=== PATIENT | male | born 1935 | race Caucasian/White ===

== ENCOUNTER 2016-07-07 19:17 | Inpatient (IN) | payer OTHER ==
[2016-07-07 19:25] VITALS: BMI 29.0
--- NOTE | 2016-07-07 19:40 | PDOC ---
History of Present Illness - General Chief Complaint: Chest Pain Stated Complaint: LEFT LEG SWELLING AN DPAIN Time Seen by Provider: 07/07/16 19:29 - History of Present Illness Initial Comments: This 81-year-old man with a history of hypertension,Type2 DM, GERD, hyperlipidemia, CABG(2003), gout and rheumatoid arthritis presents with 4 day history of pain and swelling in his left leg. Patient denies trauma to the area. Swelling has persisted despite elevation of the leg. He also has a specific area of pain/tenderness of the medial proximal portion of the lower leg. No recent surgery/immobility/malignancy. Patient had total left knee replacement in December,. Patient also relates that for the last few months he has had episodes of "skipped heartbeats" that he senses only at night. He also has had shortness of breath occurring after lying down at night and after climbing stairs during this time (patient approximates 10 steps until he feels short of breath). He denies chest pain at rest or with exertion He denies fever/chills/cough. According to family members, patient began to have more symptoms after change in medication(family believes torsemide was decreased to 10mg every other day) approximately 2 weeks ago when patient had appointment with Dr. Coelho The patient had of CT scan of the chest without intravenous contrast performed , ordered by Dr. Coelho to evaluate for pulmonary hypertension. Study showed borderline prominent main pulmonary trunk with minimal increase in size since previous chest CT compatible with clinical history of pulmonary hypertension YADDrYrn Kaminski CardiologistDr. Coelho Past History - Past Medical History Allergies/Adverse Reactions: Allergies Allergy/AdvReac Type Severity Reaction Status Date / Time No Known Drug Allergies Allergy Verified 07/07/16 19:19 Home Medications: Ambulatory Orders Methotrexate Sodium [Methotrexate] 0 mg PO ASDIR tablet 06/27/14 Carvedilol 0 mg PO DAILY 07/07/16 Furosemide [Lasix] 40 mg PO DAILY 07/07/16 Glipizide 5 mg PO DAILY 07/07/16 Torsemide [Demadex] 10 mg PO Q2D 07/07/16 Anemia: No Asthma: No Cancer: No Cardiac Disorders: Yes (s/p cabg 2003) CVA: No COPD: No CHF: No Dementia: No Diabetes: Yes GI Disorders: No Disorders: No HTN: Yes Hypercholesterolemia: No Kidney Stones: Yes Liver Disease: No Suicide Attempt (Hx): No Seizures: No Thyroid Disease: No - Surgical History Abdominal Surgery: No Appendectomy: No Cardiac Surgery: Yes (CABG X 3-LAST STRESS TEST 1 MONTH AGO) Cholecystectomy: No Lung Surgery: No Neurologic Surgery: No Orthopedic Surgery: Yes (RIGHT KNEE REPLACEMENT 2011) - Psycho/Social/Smoking Cessation Hx Anxiety: No Suicidal Ideation: No Smoking Status: No Smoking History: Never smoked Have you smoked in the past 12 months: No Number of Cigarettes Smoked Daily: 0 Information on smoking cessation initiated: No Hx Alcohol Use: No Drug/Substance Use Hx: No Substance Use Type: None Hx Substance Use Treatment: No Cardiac Specific PMH - Complaint Specific PMHX Pacemaker: No Review of Systems - Review of Systems Able to Perform ROS?: Yes Comments:: 12 point review of systems is negative except for what is noted in the history of present illness *Physical Exam - Vital Signs Last Vital Signs Temp Pulse Resp BP Pulse Ox 97.9 F 70 22 151/71 98 07/07/16 19:18 07/08/16 06:22 07/08/16 06:22 07/08/16 06:22 07/08/16 06:22 - Physical Exam Comments: Elderly male, alert and oriented 3, in no acute distress Vital signs as noted. HEAD: Normal with no signs of trauma. EYES: Pupils equal, round and reactive to light, extraocular movements intact, sclera anicteric, conjunctiva clear with no pallor. ENT: moist mucous membranes. Ears normal, nares patent, oropharynx clear without exudates. NECK: Normal range of motion, supple without lymphadenopathy, JVD, or masses. LUNGS: Breath sounds equal, expiratory crackles bilaterally at the bases. HEART: Regular rate and rhythm, normal S1 and S2 without murmur or rub. ABDOMEN: Soft/nontender/nondistended. BS wnl. No guarding or rebound. No palpable masses. No hepatosplenomegaly. EXTREMITIES: Left lower extremity2+ pitting edema to the knee, nonblanching erythema 3 cm x 4 cm mid anterior tibial surface (old) 2 cm x 3 cm area of tenderness medial aspect of the proximal lower leg, no increased warmth to touch No palpable cords Right lower extremity1+ pitting edema of the ankle; no tenderness, erythema or increased warmth to touch NEUROLOGICAL: Cranial nerves II through XII grossly intact. Moving all 4 extremities equally, Normal speech, normal gait. PSYCH: Normal mood, normal affect. SKIN: Warm, Dry, normal turgor 12-lead electrocardiogram performed which shows normal sinus rhythm at 67 bpm; increasing NC interval with dropped complexes consistent with second-degree A-V block , Mobitz 1; otherwise, unchanged from tracing dated 01/31/15 Portable chest x-ray shows prominent vascular markings bilaterally; elevated right hemidiaphragm and platelike atelectasis is unchanged from previous chest x -ray images ED Treatment Course - LABORATORY CBC & Chemistry Diagram: 07/07/16 19:55 07/07/16 19:55 - ADDITIONAL ORDERS Additional order review: Laboratory Results 07/07/16 07/07/16 07/07/16 22:20 19:55 19:55 INR 1.10 Sodium Potassium Chloride Carbon Dioxide Anion Gap BUN Creatinine Creat Clearance w eGFR Random Glucose Calcium Total Bilirubin AST ALT Alkaline Phosphatase Creatine Kinase 70 Troponin I < 0.03 L Total Protein Albumin Urine Color Yellow Urine Appearance Clear Urine pH 5.5 Ur Specific [place] 1.010 Urine Protein 2+ H Urine Glucose (UA) Negative Urine Ketones Negative Urine Blood Trace-intact Urine Nitrite Negative Urine Bilirubin Negative Urine Urobilinogen 0.2 e.u/dl Ur Leukocyte Esterase Negative Urine RBC 0-2 Urine WBC 0-1 Ur Epithelial Cells 1-2 07/07/16 19:55 INR Sodium 140 Potassium 4.2 Chloride 114 H Carbon Dioxide 22 Anion Gap 4 L BUN 29 H D Creatinine 1.3 D Creat Clearance w eGFR 52.85 Random Glucose 173 H D Calcium 8.9 Total Bilirubin 0.1 L D AST 18 D ALT 15 D Alkaline Phosphatase 35 Creatine Kinase Troponin I Total Protein 6.5 Albumin 3.8 Urine Color Urine Appearance Urine pH Ur Specific [place] Urine Protein Urine Glucose (UA) Urine Ketones Urine Blood Urine Nitrite Urine Bilirubin Urine Urobilinogen Ur Leukocyte Esterase Urine RBC Urine WBC Ur Epithelial Cells 07/07/16 19:55 RBC 3.54 L MCV 95.9 MCHC 33.1 RDW 16.0 H MPV 8.7 Neutrophils % 74.2 Lymphocytes % 16.7 D Monocytes % 5.1 Eosinophils % 3.4 Basophils % 0.6 - RADIOLOGY Radiology Studies Ordered: Category Date Time Status CHEST X-RAY PORTABLE* [RAD] Stat Radiology 07/07/16 20:50 Taken DUPLEX VASCUL US-1 LEG [US] Stat Ultrasound 07/07/16 20:00 Completed - Medications Given in the ED: ED Medications Discontinued Medications Generic Name Dose Route Start Last Admin Trade Name Reginaldo PRN Reason Stop Dose Admin Furosemide 40 mg 07/07/16 23:02 07/07/16 23:21 Lasix Injection - IVPUSH 07/07/16 23:03 40 mg ONCE ONE Administration Medical Decision Making - Medical Decision Making 07/07/16 22:17 Doppler evaluation of left leg shows no evidence of DVT. There is a thrombosed superficial varicosities in the popliteal region. There is also complex fluid collection in the medial aspect of the proximal calf most consistent with a hematoma. Patient given 40 mg of furosemide IV Patient to be admitted by the hospitalist service for Dr. Kaminski for evaluation and treatment of his progressive dyspnea and new onset second-degree AV block. Patient seen by LIZETH Oglesby and admitting orders written. Patient boarding in ER overnight because of unavailability of open beds on floor. 07/08/16 02:50 Patient complaining of right posterior thigh muscle cramp. On exam, patient has muscle spasm in the hamstring muscle right side. Local warmth(warm towel) placed to the area with some relief Patient also asked for medication so that he could sleep. He has taken diphenhydramine in the past for insomnia. Patient given 25 mg diphenhydramine by mouth Second troponin not elevated 07/08/16 06:45 Patient had an asymptomatic episode of bradycardia to mid 30s (rhythm strip showed second-degree AV block, type I as previously) 07/08/16 07:19 Case signed out to incoming ED physician at end of shift *DC/Admit/Observation/Transfer Diagnosis at time of Disposition: AV block, Mobitz 1, Pulmonary hypertension - Discharge Dispostion Condition at time of disposition: Stable Admit: Yes Decision to Admit order Date/Time: Decision to Admit Order Category Date Time Status Decision to Admit to Hospital Routine Admission 07/07/16 22:47 Active - Referrals
[2016-07-07 20:12] LABS: INR 1.1 (0.82-1.09); PROTHROMBIN TIME (PATIENT) 12.3 SEC (10.2-13.0)
[2016-07-07 20:17] LABS: BASOPHIL 0.6 % (0-2.0); CPK(DFH) 70 IU/L (38-174); EOSINOPHIL 3.4 % (0-4.5); MCH 31.7 pg (25.7-33.7); MCHC 33.1 g/dl (32.0-35.9); MEAN CELL VOLUME 95.9 fl (80-96); MEAN PLT VOLUME 8.7 fl (7.5-11.1); NEUTROPHILS 74.2 % (42.8-82.8); PLATELET COUNT 128 K/MM3 (134-434); WHITE BLOOD COUNT 6.3 K/mm3 (4.0-10.8)
[2016-07-07 20:18] LABS: ALBUMIN 3.8 g/dl (3.5-5.0); ALK PHOS 35 U/L (32-92); ANION GAP 4 (8-16); BILIRUBIN,TOTAL 0.1 mg/dl (0.2-1.0); CALCIUM 8.9 mg/dl (8.4-10.2); CO2 22 mmol/L (22-28); CREATININE 1.3 mg/dl (0.6-1.3); GLUCOSE,RANDOM 173 mg/dl (74-106); SGOT/AST 18 U/L (10-42); SGPT/ALT 15 U/L (10-40); TOT PROT 6.5 g/dl (6.4-8.3)
[2016-07-07 20:42] LABS: TROPONIN I (DFP) < 0.03 ng/ml (0.03-0.50)
[2016-07-07 22:42] LABS: PH,URINE 5.5 (4.5-8); URINE APPEARANCE Clear; URINE BILIRUBIN Negative (NEGATIVE); URINE BLOOD Trace-intact (NEGATIVE); URINE COLOR YELLOW; URINE GLUCOSE (UA) Negative (NEGATIVE); URINE KETONE Negative (NEGATIVE); URINE LEUK ESTERASE Negative (NEGATIVE); URINE NITRITE Negative (NEGATIVE); URINE PROTEIN 2+ (NEGATIVE); URINE UROBILINOGEN 0.2 E.U/dl (0.2-1.0)
[2016-07-07] MEDS ORDERED: FUROSEMIDE 40 MG/4 ML INJECTABLE VIAL IVPUSH ONE (23:02)
[2016-07-07 23:06] LABS: URINE RBC 0-2 /hpf (0-3); URINE WBC 0-1 (3-5)
[2016-07-07] MEDS ORDERED: FUROSEMIDE 40 MG/4 ML INJECTABLE VIAL ONE (23:14)
--- NOTE | 2016-07-07 23:57 | HP ---
CHIEF COMPLAINT: swelling and pain to left leg PCP: [facility]; Cardiology: [facility] HISTORY OF PRESENT ILLNESS: This is a 81 year old male with a past medical history of HTN, HLD, 3vCABG 2004 , DM, GERD, Gout, RA who presented to the ED with a 4 day history of left leg swelling and pain. Pt also reports a 3 month history of "skipped heart beats" at night and SOB when climbing >10 steps; denies SOB with laying flat. Pt states that his doctors have been tapering down his torsemide and is now only taking 1/2 pill QOD. Pt denies SOB on exam. No Chest pain or palpitations at present. Pt denies abd pain, N/V/D. Pt reports recent CT chest done to r/o pHTN , results c/w pHTN ER course was notable for: (1) Doppler neg for DVT (2) Lasix 40mg given IVP (3) ECG with 2nd degree AV block, mobitz type 1 Recent Travel: pt denies PAST MEDICAL HISTORY: HTN HLD 3vCABG 2003 DM2 GERD Gout RA PAST SURGICAL HISTORY: L TKR 2014, R TKR 2011 Social History: Smoking: pt denies Alcohol: occ glass of wine Drugs: pt denies Occupational: [employer] work Family History: mother age 95, h/o PPM placement father age 72, h/o DM sister age 82, unknown brother with CABG at age 65, now 70 and well 3 other brothers and 2 sisters without medical issues Allergies No Known Drug Allergies Allergy (Verified 07/07/16 19:19) HOME MEDICATIONS: 3 Medication Instructions Recorded Methotrexate Sodium [Methotrexate] 0 mg PO ASDIR tablet 06/27/14 Carvedilol 0 mg PO DAILY 07/07/16 Furosemide [Lasix] 40 mg PO DAILY 07/07/16 Glipizide 5 mg PO DAILY 07/07/16 Torsemide [Demadex] 07/07/16 Torsemide [Demadex] 10 mg PO 07/07/16 Torsemide [Demadex] 10 mg PO 07/07/16 Torsemide [Demadex] 10 mg PO Q2D 07/07/16 REVIEW OF SYSTEMS CONSTITUTIONAL: Absent: fever, chills, diaphoresis, generalized weakness, malaise, loss of appetite, weight change HEENT: Absent: rhinorrhea, nasal congestion, throat pain, throat swelling, difficulty swallowing, mouth swelling, ear pain, eye pain, visual changes CARDIOVASCULAR: Present: palpitations, irregular heart rate, peripheral edema Absent: chest pain, syncope, lightheadedness RESPIRATORY: Present: dyspnea with exertion Absent: cough, shortness of breath, orthopnea, wheezing, stridor, hemoptysis GASTROINTESTINAL: Absent: abdominal pain, abdominal distension, nausea, vomiting, diarrhea, constipation, melena, hematochezia GENITOURINARY: Absent: dysuria, frequency, urgency, hesitancy, hematuria, flank pain, genital pain MUSCULOSKELETAL: Present: L Leg pain Absent: myalgia, arthralgia, joint swelling, back pain, neck pain SKIN: Absent: rash, itching, pallor HEMATOLOGIC/IMMUNOLOGIC: Absent: easy bleeding, easy bruising, lymphadenopathy, frequent infections ENDOCRINE: Absent: unexplained weight gain, unexplained weight loss, heat intolerance, cold intolerance NEUROLOGIC: Absent: headache, focal weakness or paresthesias, dizziness, unsteady gait, seizure, mental status changes, bladder or bowel incontinence PSYCHIATRIC: Absent: anxiety, depression, suicidal or homicidal ideation, hallucinations. PHYSICAL EXAMINATION Vital Signs - 24 hr 3 07/07/16 07/07/16 19:18 21:30 Temperature 97.9 F Pulse Rate 98 H 74 Pulse Rate [ 74 Left] Respiratory 20 17 Rate Blood Pressure 187/96 Blood Pressure 171/61 [Left] O2 Sat by Pulse 93 L 97 Oximetry (%) GENERAL: Awake, alert, and fully oriented, in no acute distress. HEAD: Normal with no signs of trauma. EYES: Pupils equal, round and reactive to light, extraocular movements intact, sclera anicteric, conjunctiva clear. No lid lag. EARS, NOSE, THROAT: Ears normal, nares patent, oropharynx clear without exudates. Moist mucous membranes. NECK: Normal range of motion, supple without lymphadenopathy, JVD, or masses. LUNGS: Crackles bilat bases, mild expiratory wheeze. No rhonchi. No accessory muscle use. HEART: Regular rate and rhythm, normal S1 and S2 without murmur, rub or gallop. ABDOMEN: Soft, nontender, not distended, normoactive bowel sounds, no guarding, no rebound, no masses. No hepatomegaly or splenomegaly. MUSCULOSKELETAL: Normal range of motion at all joints. No bony deformities or tenderness. No CVA tenderness. UPPER EXTREMITIES: 2+ pulses, warm, well-perfused. No cyanosis. No clubbing. No peripheral edema. LOWER EXTREMITIES: 2+ pulses, warm, well-perfused. No calf tenderness. L leg 2+ , R leg 1+ peripheral edema. NEUROLOGICAL: Cranial nerves II-XII intact. Normal speech. Normal gait. PSYCHIATRIC: Cooperative. Good eye contact. Appropriate mood and affect. SKIN: Warm, dry, normal turgor, no rashes or lesions noted, normal capillary refill. Laboratory Results - last 24 hr 3 07/07/16 07/07/16 07/07/16 19:55 19:55 19:55 WBC 6.3 RBC 3.54 L Hgb 11.2 L Hct 33.9 L MCV 95.9 MCHC 33.1 RDW 16.0 H Plt Count 128 L D MPV 8.7 Neutrophils % 74.2 Lymphocytes % 16.7 D Monocytes % 5.1 Eosinophils % 3.4 Basophils % 0.6 INR 1.10 Sodium 140 Potassium 4.2 Chloride 114 H Carbon Dioxide 22 Anion Gap 4 L BUN 29 H D Creatinine 1.3 D Creat Clearance w eGFR 52.85 Random Glucose 173 H D Calcium 8.9 Total Bilirubin 0.1 L D AST 18 D ALT 15 D Alkaline Phosphatase 35 Creatine Kinase 70 Troponin I < 0.03 L Total Protein 6.5 Albumin 3.8 Urine Color Urine Appearance Urine pH Ur Specific [place] Urine Protein Urine Glucose (UA) Urine Ketones Urine Blood Urine Nitrite Urine Bilirubin Urine Urobilinogen Ur Leukocyte Esterase Urine RBC Urine WBC Ur Epithelial Cells 3 Urine Color Yellow 07/07/16 22:20 Urine Appearance Clear 07/07/16 22:20 Urine pH 5.5 (4.5-8) 07/07/16 22:20 Ur Specific [place] 1.010 (1.005-1.025) 07/07/16 22:20 Urine Protein 2+ (NEGATIVE) H 07/07/16 22:20 Urine Glucose (UA) Negative (NEGATIVE) 07/07/16 22:20 Urine Ketones Negative (NEGATIVE) 07/07/16 22:20 Urine Blood Trace-intact (NEGATIVE) 07/07/16 22:20 Urine Nitrite Negative (NEGATIVE) 07/07/16 22:20 Urine Bilirubin Negative (NEGATIVE) 07/07/16 22:20 Ur Leukocyte Esterase Negative (NEGATIVE) 05/23/17 22:20 Urine RBC 0-2 /hpf (0-3) 07/07/16 22:20 Urine WBC 0-1 (3-5) 07/07/16 22:20 Ur Epithelial Cells 1-2 /HPF 07/07/16 22:20 EC:37: sinus rhythm with 2nd degree AV block Mobitz type1, rate 57, QTC 429 23:49: sinus rhythm with 1st degree AV block, missed beats, but no longer a wenckebach phenomenon, see rhythm strip, no acute ST/T changes CXR: increased vascular markings, blunted CV angles, official read pending US doppler L leg: HISTORY PROVIDED: Pain and swelling left lower extremity. Real time and doppler evaluation of the left lower extremity demonstrates the following: There is no evidence of deep venous thrombosis within the common, deep and superficial femoral veins, as well as the popliteal and posterior tibial veins. The greater saphenous vein is also patent. These veins are fully compressible, as well. There are thrombosed superficial varicosities in the popliteal region. There is also a complex fluid collection within the medial aspect of the proximal calf that measures 4.4 x 1.5 x 2.9 cm. This most likely represents a hematoma. Clinical correlation is advised. IMPRESSION: No evidence of deep venous thrombosis. Please see above discussion. 06/30/16: CHEST CT WITHOUT CONTRAST Evaluate for pulmonary hypertension CT scan of the chest without intravenous contrast Coronal and sagittal reconstruction images were obtained. Compared to prior CT angiogram of the chest dated 2014. Main pulmonary artery now measures approximately 13 in width. On prior examination it measured 2.8 cm The heart is within normal limits in size. Calcification of the coronary arteries are present. Patient is status post CABG. No enlarged mediastinal or hilar lymph nodes are identified. Calcified atheromatous plaques in the aortic arch and descending thoracic aorta. Evaluation of the lung again demonstrates mild COPD/emphysema. There are mild atelectatic changes in the right lung base. Pleural-based masslike density/ consolidation again seen in the left lung base, posteriorly with pleural thickening and pleural calcifications. In included portion of the upper abdomen , extensive vascular calcifications are present there is stranding of the right perinephric fat. Left kidney was not visualized/included. Mild degenerative changes in the thoracic spine IMPRESSION: Persistent pleural-based masslike density/consolidation the left lung base, posteriorly with pleural thickening and calcifications. Mild atelectatic changes in the right lung base. No enlarged mediastinal lymph nodes identified. Borderline prominent main pulmonary trunk that has minimally increased in size since the prior examination compatible with the clinical history of pulmonary hypertension. ASSESSMENT/PLAN: 81yM with PMH HTN, HLD, 3vCABG 2004, DM, GERD, Gout, RA who presented to the ED with a 4 day history of left leg swelling and pain. He is being admitted for CHF exac and pHTN. CHF exac - lasix 40mg given IVP - cont lasix 40mg IVP daily - would obtain echo if none in cardiology office recently - cardiology consult ordered. AV block, 2nd degree vs 1st degree - hold beta kellie for now - cardiology consult pending - continuous cardiac monitoring hematoma left calf - warm compresses PRN, monitor HTN - BP elevated, cont to monitor and uptitrate meds as indicated. DM2 - cont home meds with BGM TIDAC and HS and novolog SS GERD - home omeprazole changed to formulary pantoprazole HLD - home zocor changed to formulary lipitor gout and RA - cont home medications, no joint pain at present. DVT PPX - heparin 5000u SC TID FEN - hold IVF as appears overloaded - repeat BMP in am - low sodium/diabetic diet Dispo: Pt currently requires inpatient management of his emergent medical condition and expected LOS >48h Visit type - Emergency Visit Emergency Visit: Yes ED Registration Date: 07/07/16 Care time: The patient presented to the Emergency Department on the above date and was hospitalized for further evaluation of their emergent condition. - New Patient This patient is new to me today: Yes Date on this admission: 07/07/16 - Critical Care Critical Care patient: No
[2016-07-08 02:51] LABS: TROPONIN I < 0.02 ng/ml (0.00-0.05)
[2016-07-08] MEDS: HEPARIN NA (PORCINE) 5,000 UNITS/ML 1ML VIAL SQ SCH ×2 (05:54→14:56)
--- NOTE | 2016-07-08 06:56 | PN ---
[id number]: patient is a 81 year old male with a past medical history of HTN, HLD, CABG x3 2004, NIDDM, GERD, Gout, RA. patient was admitted from the emergency department for emergent condition. Vital Signs Period Temp Pulse Resp BP Sys/Downs Pulse Ox Last 24 Hr 70-80 20-22 151-159/71-79 98-99 GENERAL: The patient is awake, alert, and fully oriented, in no acute distress. HEAD: Normal with no signs of trauma. EYES: PERRL, extraocular movements intact, sclera anicteric, conjunctiva clear. No ptosis. ENT: Ears normal, nares patent, oropharynx clear without exudates, moist mucous membranes. NECK: Trachea midline, full range of motion, supple. LUNGS: Breath sounds equal, diminished to bases, crackles to billateral apexes. no wheezes, no accessory muscle use. HEART: Regular rate and rhythm, S1, S2 without murmur, rub or gallop. ABDOMEN: Soft, nontender, nondistended, normoactive bowel sounds, no guarding, no rebound, no hepatosplenomegaly, no masses. EXTREMITIES: 2+ pulses, warm, well-perfused, no edema. LEFT LOWER EXTREMITY: pain to calf upon palpation, no erythema, less than 3 second capilary refill, +3 pedal pulse NEUROLOGICAL: Cranial nerves II through XII grossly intact. Normal speech, gait not observed. PSYCH: Normal mood, normal affect. SKIN: Warm, dry, normal turgor, no rashes or lesions noted Laboratory Results - last 24 hr 07/08/16 02:00 Creatine Kinase 54 Troponin I < 0.02 CBC WBC 6.0 K/mm3 (4.0-10.8) 07/08/16 10:46 RBC 3.82 M/mm3 (4.00-5.60) L 07/08/16 10:46 Hgb 12.1 GM/dl (11.7-16.9) 07/08/16 10:46 Hct 36.5 % (35.4-49) 07/08/16 10:46 MCV 95.6 fl (80-96) 07/08/16 10:46 MCHC 33.1 g/dl (32.0-35.9) 07/08/16 10:46 RDW 15.8 % (11.9-15.9) 07/08/16 10:46 Plt Count 141 K/MM3 (134-434) 07/08/16 10:46 MPV 8.0 fl (7.5-11.1) 07/08/16 10:46 Neutrophils % 80.4 % (42.8-82.8) 07/08/16 10:46 Lymphocytes % 12.1 % (8-40) D 07/08/16 10:46 Monocytes % 4.9 % (3.8-10.2) 07/08/16 10:46 Eosinophils % 2.1 % (0-4.5) 07/08/16 10:46 Basophils % 0.5 % (0-2.0) 07/08/16 10:46 CMP Sodium 143 mmol/L (136-145) 07/08/16 10:46 Potassium 4.5 mmol/L (3.5-5.1) 07/08/16 10:46 Chloride 109 mmol/L (98-107) H 07/08/16 10:46 Carbon Dioxide 26 mmol/L (22-28) 07/08/16 10:46 Anion Gap 8 (8-16) 07/08/16 10:46 BUN 25 mg/dl (7-18) H 07/08/16 10:46 Creatinine 1.3 mg/dl (0.6-1.3) 07/08/16 10:46 Creat Clearance w eGFR 52.85 (>60) 07/07/16 19:55 POC Glucometer 153 UNITS (()) 07/08/16 11:26 Random Glucose 220 mg/dl (74-106) H D 07/08/16 10:46 Calcium 9.4 mg/dl (8.4-10.2) 07/08/16 10:46 Phosphorus 3.2 mg/dl (2.5-4.6) 07/08/16 10:46 Magnesium 1.9 mg/dL (1.8-2.4) 07/08/16 10:46 Total Bilirubin 0.1 mg/dl (0.2-1.0) L D 07/07/16 19:55 AST 18 U/L (10-42) D 07/07/16 19:55 ALT 15 U/L (10-40) D 07/07/16 19:55 Alkaline Phosphatase 35 U/L (32-92) 07/07/16 19:55 Creatine Kinase 43 IU/L (38-174) 07/08/16 10:46 Troponin I < 0.03 ng/ml (0.03-0.50) L 07/08/16 10:46 B-Natriuretic Peptide Cancelled 07/08/16 10:46 Total Protein 6.5 g/dl (6.4-8.3) 07/07/16 19:55 Albumin 3.8 g/dl (3.5-5.0) 07/07/16 19:55 Laboratory Tests 07/08/16 02:00 B-Natriuretic Peptide 1143.33 H Active Medications Generic Name Dose Route Start Last Admin Trade Name Freq PRN Reason Stop Dose Admin Allopurinol 100 mg 07/08/16 10:00 Zyloprim - PO DAILY [facility] Atorvastatin Calcium 20 mg 07/08/16 22:00 Lipitor - PO HS [facility] Folic Acid 1 mg 07/08/16 10:00 Folic Acid - PO DAILY [facility] Furosemide 40 mg 07/08/16 10:00 Lasix Injection - IVPUSH DAILY [facility] Glipizide 5 mg 07/08/16 07:00 Glucotrol - PO ACBK [facility] Heparin Sodium (Porcine) 5,000 unit 07/08/16 06:00 07/08/16 05:54 Heparin - SQ 5,000 unit TID [facility] Administration Insulin Aspart 1 vial 07/08/16 07:00 Novolog Vial Sliding Scale - SQ ACHS [facility] Protocol Methotrexate 20 mg 07/13/16 10:00 Mexate - PO Mo@10 [facility] Nifedipine 60 mg 07/08/16 10:00 Procardia Xl - PO BID [facility] Pantoprazole Sodium 20 mg 07/08/16 10:00 Protonix - PO BID [facility] Ramipril 10 mg 07/08/16 10:00 Altace - PO DAILY [facility] EK:37: sinus rhythm with 2nd degree AV block Mobitz type1, rate 57, QTC 429 1000: sinus rhythm with 1st degree AV block, missed beats, but no longer a wenckebach phenomenon, see rhythm strip, no acute ST/T changes IMAGING CXR: right basilar atelactasis, unchanged from prior US doppler L leg: No evidence of deep venous thrombosis. there is also a complex fluid collection within the medial aspect of the proximal calf that measures 4.4 x 1.5 x 2.9 cm. This most likely represents a hematoma. 06/30/16: CHEST CT WITHOUT CONTRAST: Persistent pleural-based masslike density/ consolidation the left lung base, posteriorly with pleural thickening and calcifications. Mild atelectatic changes in the right lung base. No enlarged mediastinal lymph nodes identified. Borderline prominent main pulmonary trunk that has minimally increased in size since the prior examination compatible with the clinical history of pulmonary hypertension. 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) hypertension - continue altace and procardia, b/p at goal hyperlipidemia - continue lipitor, lft's wnl 2) pulm - ct scan of chest reviewed, 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, pt does report dyspnea upon exertion questionable underlying copd - start symbicort - appreciate pulmonary input 2) endo niddm - fingersticks achs w/novolog SS, continue glipizide 3) GI Gerd - continue protonix 4) ms gout/ra no acute exacerbation at this time DVT PPX - heparin 5000u SC TID FEN - repeat BMP in am - low sodium/diabetic diet Dispo: Pt currently requires inpatient management of his emergent medical condition and expected LOS >48h Visit type - Emergency Visit Emergency Visit: Yes ED Registration Date: 07/07/16 Care time: The patient presented to the Emergency Department on the above date and was hospitalized for further evaluation of their emergent condition. - New Patient This patient is new to me today: Yes Date on this admission: 07/08/16 - Critical Care Critical Care patient: No - Discharge Referral Referred to [facility] Med [facility] Yes Physician Referral: Lalit Kaminski MD (Int Med)
[2016-07-08] MEDS ORDERED: glipiZIDE 5 MG TABLET (FP) PO SCH (07:00)
[2016-07-08] MEDS: INSULIN SLIDING SCALE (NOVOLOG) 1 VIAL SQ SCH ×3 (07:09→17:05)
[2016-07-08 09:52] VITALS: BP 131/77; PULSE 63; TEMP 98.1
[2016-07-08] MEDS ORDERED: CARVEDILOL 3.125 MG TABLET (FP) PO SCH (10:00)
[2016-07-08] MEDS ORDERED: PANTOPRAZOLE 20 MG TABLET (FP) PO SCH (10:00)
[2016-07-08] MEDS ORDERED: FOLIC ACID 1 MG TABLET (FP) PO SCH (10:00)
[2016-07-08] MEDS ORDERED: RAMIPRIL 5 MG CAPSULE (FP) PO SCH (10:00)
[2016-07-08] MEDS ORDERED: NIFEdipine E.R 60 MG TABLET (UD) PO SCH (10:00)
[2016-07-08] MEDS ORDERED: ALLOPURINOL 100 MG TABLET (FP) PO SCH (10:00)
[2016-07-08] MEDS: FUROSEMIDE 40 MG/4 ML INJECTABLE VIAL IVPUSH SCH ×2 (10:31→10:41)
--- NOTE | 2016-07-08 10:55 | PN ---
Progress Note (short form) - Note Progress Note: PULMONARY CONSULTATION DICTATED 07/08/16 IMP DYSPNEA ASHD S/P CABG CHRONIC LUNG DISEASE ? ASBESTOS RELATED LLL CONSOLIDATION C/W ATELETASIS NO CHANGE SINCE 2010 PULMONARY HTN CHF HTN LEFT CALF HEMATOMA PLAN INHALED BRONCHODILATORS NASAL O2 PFTS OUTPATIENT CONSIDER SLEEP STUDIES OUTPATIENT CHECK O2 SAT AT REST AN POST EXERCISE ON RA VASCULAR EVALUATION Problem List - Problems (1) AV block, Mobitz 1 Code(s): I44.1 - ATRIOVENTRICULAR BLOCK, SECOND DEGREE (2) Pulmonary hypertension Code(s): I27.2 - OTHER SECONDARY PULMONARY HYPERTENSION (3) Diabetes mellitus Code(s): E11.9 - TYPE 2 DIABETES MELLITUS WITHOUT COMPLICATIONS Qualifiers: Diabetes mellitus complication status: without complication (4) Dyspnea Code(s): R06.00 - DYSPNEA, UNSPECIFIED (5) Gout Code(s): M10.9 - GOUT, UNSPECIFIED (6) HLD (hyperlipidemia) Code(s): E78.5 - HYPERLIPIDEMIA, UNSPECIFIED (7) HTN (hypertension) Code(s): I10 - ESSENTIAL (PRIMARY) HYPERTENSION (8) S/P CABG (coronary artery bypass graft) Code(s): Z95.1 - PRESENCE OF AORTOCORONARY BYPASS GRAFT (9) Tachycardia Code(s): R00.0 - TACHYCARDIA, UNSPECIFIED (10) Lung consolidation Code(s): J18.1 - LOBAR PNEUMONIA, UNSPECIFIED ORGANISM
[2016-07-08 11:01] LABS: BASOPHIL 0.5 % (0-2.0); EOSINOPHIL 2.1 % (0-4.5); MCH 31.6 pg (25.7-33.7); MCHC 33.1 g/dl (32.0-35.9); MEAN CELL VOLUME 95.6 fl (80-96); NEUTROPHILS 80.4 % (42.8-82.8); PLATELET COUNT 141 K/MM3 (134-434); RDW 15.8 % (11.9-15.9)
[2016-07-08] MEDS ORDERED: BUDESONIDE/FORMETEROL FUMARATE 80/4.5 mcg INHALER IH SCH (11:15)
[2016-07-08 11:22] LABS: CPK(DFH) 43 IU/L (38-174)
[2016-07-08 11:23] LABS: ANION GAP 8 (8-16); CALCIUM 9.4 mg/dl (8.4-10.2); CO2 26 mmol/L (22-28); CREATININE 1.3 mg/dl (0.6-1.3); GLUCOSE,RANDOM 220 mg/dl (74-106); MAGNESIUM 1.9 mg/dL (1.8-2.4); PHOSPHOROUS 3.2 mg/dl (2.5-4.6)
[2016-07-08] MEDS ORDERED: PT OWN MED DRAWER 7, Y5N ONE ×2 (11:35→11:39)
[2016-07-08 14:00] LABS: TROPONIN I (DFP) < 0.03 ng/ml (0.03-0.50)
--- NOTE | 2016-07-08 14:20 | CON.CARD ---
Cardiology Consult (text) - Consultation Consultation Note: CC: 2nd degree AV block HPI 81 yo with pmhx of CAD s/p CABG 2003 [facility] (ZEE-LAD, SVG-OM, SVG-PDA/drca ) , HTN with diastolic dysfunction, severe pHTN with mild-mod RV dilation, MAC with mild functional MS, mild-mod MR, HL, AV delay, varicose veins, RA, NIDDM, mild ckd (bline cr 1.3) Gout, OA s/p b tkr who presents with calf pain and found to have hematoma. hospital course complicated by episode of bradycardia and Wenckebach noted on telemetry. acute onset pain and swelling in his left calf, asymmetric. recently decreased torsemide to 10 mg QOD b/c of renal function --> recurrence of mild orthopnea. has noticed non-bothersome skipped heart beats at night when he touches he feels his pulse at his mormon. (does not feel palps/skipped beats when he is not feeling his pulse) no other sx's including cp, worsened sob, palps, dizziness, syncope, bleeding or transient neurologic sx's. no f/c/s, n/v/d, h/a, rashes, visual disturbances, cough, congestion. pmhx/pshx: per hpi fam hx: brother with bypass in his 60's social hx: never smoker ros: per hpi Ambulatory Orders Methotrexate Sodium [Methotrexate] 0 mg PO ASDIR tablet 06/27/14 Carvedilol 0 mg PO DAILY 07/07/16 Furosemide [Lasix] 40 mg PO DAILY 07/07/16 Glipizide 5 mg PO DAILY 07/07/16 Torsemide [Demadex] 10 mg PO Q2D 07/07/16 Home cardiac meds: ASA 81 mg/day, nifedipine xl 60 mg bid, coreg 6.25 mg po bid, ramipril 10 mg/day zocor 40 mg/day, torsemide 10 mg QOD Current Medications Allopurinol (Zyloprim -) 100 mg PO DAILY [facility] Last Admin: 07/08/16 10:30 Dose: 100 mg Atorvastatin Calcium (Lipitor -) 20 mg PO [facility] Budesonide/Formoterol Fumarate (Symbicort 80/4.5mcg -) 2 puff IH BID [facility] Last Admin: 07/08/16 11:32 Dose: 2 puff Folic Acid (Folic Acid -) 1 mg PO DAILY [facility] Last Admin: 07/08/16 10:31 Dose: 1 mg Furosemide (Lasix -) 40 mg PO DAILY [facility] Glipizide (Glucotrol -) 5 mg PO ACBK [facility] Last Admin: 07/08/16 07:03 Dose: 5 mg Heparin Sodium (Porcine) (Heparin -) 5,000 unit SQ TID [facility] Last Admin: 07/08/16 05:54 Dose: 5,000 unit Insulin Aspart (Novolog Vial Sliding Scale -) 1 vial SQ ACHS [facility] PRN Reason: Protocol Last Admin: 07/08/16 11:31 Dose: 2 units Methotrexate (Mexate -) 20 mg PO Mo@10 [facility] Nifedipine (Procardia Xl -) 60 mg PO BID [facility] Last Admin: 07/08/16 10:31 Dose: 60 mg Pantoprazole Sodium (Protonix -) 20 mg PO BID [facility] Last Admin: 07/08/16 10:30 Dose: 20 mg Ramipril (Altace -) 10 mg PO DAILY [facility] Last Admin: 07/08/16 10:30 Dose: 10 mg Torsemide (Demadex -) 10 mg PO Q2D [facility] Vital Signs - 24 hr 07/07/16 07/07/16 07/08/16 19:18 21:30 00:04 Temperature 97.9 F Pulse Rate 98 H 74 Pulse Rate [ 74 81 Left] Respiratory 20 17 27 H Rate Blood Pressure 187/96 Blood Pressure 171/61 161/71 [Left] O2 Sat by Pulse 93 L 97 97 Oximetry (%) 07/08/16 07/08/16 07/08/16 01:20 06:22 07:00 Temperature 98.6 F Pulse Rate 68 Pulse Rate [ 80 70 Left] Respiratory 20 22 20 Rate Blood Pressure 132/72 Blood Pressure 159/79 151/71 [Left] O2 Sat by Pulse 99 98 96 Oximetry (%) 07/08/16 07/08/16 09:00 09:52 Temperature 98.1 F Pulse Rate 63 63 Pulse Rate [ Left] Respiratory 20 20 Rate Blood Pressure 131/77 131/77 Blood Pressure [Left] O2 Sat by Pulse 96 96 Oximetry (%) Intake & Output 07/06/16 07/07/16 07/08/16 07/09/16 07:59 07:59 07:59 07:59 Output Total 2675 Balance -2675 Weight 180 lb 15.992 oz nad, calm jvd flat, neck supple trace rales, nl effort rrr nl s1, s2 2/6 sys murmur at lsb and apex + bs soft nt nd ext with trace edema. + varicosities. + induration at left calf + dp/pt ext without cyanosis or clubbing no jaundice, diaphoresis aaox3 no carotid bruits CBC, BMP 07/08/16 10:46 07/08/16 10:46 Laboratory Tests 01/31/15 07/07/16 07/07/16 11:44 19:55 19:55 Magnesium Total Bilirubin 0.1 L D AST 18 D ALT 15 D Alkaline Phosphatase 35 Troponin I < 0.03 L B-Natriuretic Peptide 527.01 H Albumin 3.8 07/08/16 07/08/16 07/08/16 02:00 10:46 10:46 Magnesium 1.9 Total Bilirubin AST ALT Alkaline Phosphatase Troponin I < 0.02 < 0.03 L B-Natriuretic Peptide 1143.33 H Albumin EKG 07/07 and 07/08: sr with AV delay and wenckebach. anterior q waves. EKG 04/2016: SR with AV delay (222 ms), septal infarct. ?inferior q's. Low voltages limb leads. echo 05/2016: mild lvh, with additional basal septal hypertrophy. nl lv size/fn , mild-mod RV dil, nl fn, E, A reversal. A 1.1 m/s. E/E' inc, sev lae, mild sea , IAS aneuyrsmal, 1+ ar, mild-mod mr, (by my review mod mac with 1+ func ms - I measured MG 4 mmHg), mod tr, rvsp 62, , nl ivc cath 2002 [facility]: LVEDP 13-17. 60% plad, 95% mLAD/D2, 95% oD1, 50 % oD2, 95% pLCx, 95% mLCx, 40% om2, 80% prca, 60% drca. EF 65% 81 yo with pmhx of CAD s/p CABG 2003 [facility] (ZEE-LAD, SVG-OM, SVG-PDA/drca ) , HTN with diastolic dysfunction, severe pHTN with mild-mod RV dilation, MAC with mild functional MS, mild-mod MR, HL, AV delay, varicose veins, RA, NIDDM, mild ckd (bline cr 1.3) Gout, OA s/p b tkr who presents with calf pain and found to have hematoma. hospital course complicated by episode of bradycardia and Wenckebach noted on telemetry. Wenckebach - known AV conduction delay. Asx. Ok to resume prior carvedilol dose 6.25 mg bid - patient with functional ms and benefits from slow heart rate. no risk for progression of bradyarrhythmia from wenckebach. varicose veins. - decrease nifedipine dose to 30 mg bid, in case contributing to LE edema - may have predisposed patient to calf hematoma. - compression stockings. - diuresis plan below. diastolic dysfunction/severe phtn/RV dilation - slight worsening of orthopnea on decreased torsemide dose. Will increase back to 10 mg/day. Repeat outpatient bmp in 2 weeks. CAD s/p CABG - stable, no anginal sx's. trop neg x 3 - con't asa, statin, coreg, nifedipine and ramipril. htn - medication adjustments as mentioned. ckd: stable cr
--- NOTE | 2016-07-08 14:49 | EKG ---
Test Reason : Blood Pressure : / mmHG Vent. Rate : 080 BPM Atrial Rate : 080 BPM P-R Int : 250 ms QRS Dur : 088 ms QT Int : 378 ms P-R-T Axes : 018 -10 007 degrees QTc Int : 435 ms POOR DATA QUALITY, INTERPRETATION MAY BE ADVERSELY AFFECTED SINUS RHYTHM WITH 1ST DEGREE A-V BLOCK 1 non-conducted P wave (wenchebach) SEPTAL INFARCT (CITED ON OR BEFORE 07-JUL-2016) INFERIOR INFARCT , AGE UNDETERMINED WHEN COMPARED WITH ECG OF 07-JUL-2016 19:37, 2nd degree not as prominent QUESTIONABLE CHANGE IN INITIAL FORCES OF ANTERIOR LEADS Confirmed by MD GOGO, MARCO ANTONIO ([id number]) on 07/08/2016 2:48:54 PM Referred By: MD LUONG Confirmed By:MARCO ANTONIO BOWENS MD
--- NOTE | 2016-07-08 14:49 | EKG ---
Test Reason : Blood Pressure : / mmHG Vent. Rate : 067 BPM Atrial Rate : 094 BPM P-R Int : 000 ms QRS Dur : 094 ms QT Int : 406 ms P-R-T Axes : 000 008 037 degrees QTc Int : 429 ms SINUS RHYTHM WITH 2ND DEGREE A-V BLOCK (MOBITZ I) ANTEROSEPTAL INFARCT , AGE UNDETERMINED NO PREVIOUS ECGS AVAILABLE Confirmed by MD BOWENS MARJORY ([id number]) on 07/08/2016 2:49:42 PM Referred By: DR LUONG Confirmed By:MARCO ANTONIO BOWENS MD
--- NOTE | 2016-07-08 18:37 | CONS ---
DATE OF CONSULTATION: 07/08/2016 REFERRING PHYSICIAN: Magdalena Sosa N.P. HISTORY OF PRESENT ILLNESS: The patient is an 81-year-old white male with a past medical history of ASHD status post CABG in 2003 for 3-vessel disease, diabetes mellitus, GERD, hypertension, hyperlipidemia, gout, rheumatoid, history of asbestos exposure, admitted to [facility] with 4-day history of left leg swelling and pain. He also complains of 3-month history of increasing shortness of breath, dyspnea on exertion. He also complains of dyspnea on exertion climbing 10 steps. Denies any shortness of breath at rest. He denies any chronic cough or hemoptysis. He states that he occasionally has skipped heartbeats. 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 On admission, he was felt to have possible CHF for which he was placed on diuretics. He still has occasional rhonchi. He states that he had pneumonia a couple of years ago. He took antibiotics as an outpatient. He denies any chest pain, nausea, vomiting, or diaphoresis. He denies any hemoptysis. He had a CT scan of the chest performed which revealed evidence of pulmonary hypertension and also left lower lobe consolidation with most likely atelectatic area, which has not changed since 2010. Denies any weight loss or night sweats. PAST MEDICAL HISTORY: Again includes hypertension, ASHD status post CABG 2003, diabetes mellitus, GERD, gout, rheumatoid hypertension. Surgical history with right total knee replacement. SOCIAL HISTORY: Born in [place], moved to [place] years ago. Occasional ETOH. No tobacco. Positive occupational exposure. REVIEW OF SYSTEMS: Denies chest pain. No cough. No hemoptysis. No orthopnea. Positive occasional PND. Denies any weight loss or night sweats. No abdominal pain. Positive left lower extremity tenderness and swelling. PHYSICAL EXAMINATION: General: The patient is a well-developed, well-nourished male awake, alert, in no acute distress. Vital signs: He is currently afebrile. Blood pressure is 131/77, respiratory rate 20, O2 saturation is 92% on 2 L. HEENT: Head is normocephalic, atraumatic. Neck: Supple. Heart: Regular. S1, S2. Chest: Occasional few rhonchi. Abdomen: Soft. Bowel sounds positive. Extremities: Mild tenderness in left calf, otherwise no edema. LABORATORY: WBC is 6.3, hemoglobin 11.2, hematocrit 33.9 with platelet count of 128,000. INR is 1.10. D-dimer is 876. BUN 29, creatinine 1.3. Chest CT reveals distant left lower lobe density consolidation posteriorly with calcification, no change from 2011. There is also evidence of pulmonary hypertension as well as mild COPD changes. Vascular study, no evidence of DVT. There is a complex fluid collection medial aspect of the proximal calf left lower extremity hematoma. IMPRESSION: 1. Dyspnea with multiple factors underlying atherosclerotic heart disease . 2. Left chronic lung disease, possible occupational lung disease asbestos as well as chronic lung disease, possibly secondary to previous occupational exposures. 3. Pulmonary hypertension, etiology undetermined. Possible nocturnal hypoxemia with obstructive sleep apnea. 4. Hypertension. PLAN: Continue medication as per cardiology. Start inhaled bronchodilators. Pulmonary function test as outpatient. Also set of sleep studies as outpatient. YUSUF ASIF M.D. [id number]
--- NOTE | 2016-07-08 20:35 | HOSP ---
Subjective - Review of Symptoms Events since last encounter: Received TC from Nurse. Pt seen by cardio and pulm, requesting to go home. Physical Examination Vital Signs: Vital Signs Temperature 98.1 F 07/08/16 09:00 Pulse Rate 63 07/08/16 09:52 Respiratory Rate 20 07/08/16 09:52 Blood Pressure 131/77 07/08/16 09:52 O2 Sat by Pulse Oximetry (%) 96 07/08/16 09:52 Labs: CBC, BMP 07/08/16 10:46 07/08/16 10:46 Hospitalist Encounter Assessment: Placed TC to cardiology, Pt cleared from cardiac standpoint with recommended medication changes. Pt to be DC home.
[2016-07-08] MEDS ORDERED: ATORVASTATIN CA 20 MG TABLET (FP) PO SCH (22:00)
[2016-07-08] MEDS ORDERED: NIFEdipine E.R. 30 MG TABLET (FP) PO SCH (22:00)
[2016-07-08] MEDS ORDERED: CARVEDILOL 6.25 MG TABLET (FP) PO SCH (22:00)
[2016-07-09] MEDS ORDERED: FUROSEMIDE 40 MG TABLET (FP) PO SCH (10:00)
[2016-07-09] MEDS ORDERED: TORSEMIDE 10 MG TABLET PO SCH (10:00)
--- NOTE | 2016-07-09 13:33 | DS ---
Physical Exam: SUBJECTIVE: Patient seen and examined, patient reports feeling well, ambulatory at bedside, denies any chest pain or shortness of breath. OBJECTIVE: patient is a 81 year old male with a past medical history of HTN, HLD, 3vCABG 2003, DM, GERD, Gout, RA who presented to the ED with a 4 day history of left leg swelling and pain. Pt also reports a 3 month history of "skipped heart beats" at night and SOB when climbing >10 steps; denies SOB with laying flat. Pt states that his doctors have been tapering down his torsemide and is now only taking 1/2 pill QOD. Pt denies SOB on exam. No Chest pain or palpitations at present. Pt denies abd pain, N/V/D. Pt reports recent CT chest done to r/o pHTN, results c/w pHTN ER course was notable for: (1) Doppler neg for DVT (2) Lasix 40mg given IVP (3) ECG with 2nd degree AV block, mobitz type 1 PHYSICAL EXAM GENERAL: The patient is awake, alert, and fully oriented, in no acute distress. HEAD: Normal with no signs of trauma. EYES: PERRL, extraocular movements intact, sclera anicteric, conjunctiva clear. No ptosis. ENT: Ears normal, nares patent, oropharynx clear without exudates, moist mucous membranes. NECK: Trachea midline, full range of motion, supple. LUNGS: Breath sounds equal, diminished to bases, crackles to billateral apexes. no wheezes, no accessory muscle use. HEART: Regular rate and rhythm, S1, S2 without murmur, rub or gallop. ABDOMEN: Soft, nontender, nondistended, normoactive bowel sounds, no guarding, no rebound, no hepatosplenomegaly, no masses. EXTREMITIES: 2+ pulses, warm, well-perfused, no edema. LEFT LOWER EXTREMITY: pain to calf upon palpation, no erythema, less than 3 second capilary refill, +3 pedal pulse NEUROLOGICAL: Cranial nerves II through XII grossly intact. Normal speech, gait not observed. PSYCH: Normal mood, normal affect. SKIN: Warm, dry, normal turgor, no rashes or lesions noted LABS Laboratory Results - last 24 hr 07/08/16 07/08/16 07/08/16 10:46 17:03 Unknown POC Glucometer 66 Hemoglobin A1c % 6.1 H D Troponin I < 0.03 L CBC WBC 6.0 K/mm3 (4.0-10.8) 07/08/16 10:46 RBC 3.82 M/mm3 (4.00-5.60) L 07/08/16 10:46 Hgb 12.1 GM/dl (11.7-16.9) 07/08/16 10:46 Hct 36.5 % (35.4-49) 07/08/16 10:46 MCV 95.6 fl (80-96) 07/08/16 10:46 MCHC 33.1 g/dl (32.0-35.9) 07/08/16 10:46 RDW 15.8 % (11.9-15.9) 07/08/16 10:46 Plt Count 141 K/MM3 (134-434) 07/08/16 10:46 MPV 8.0 fl (7.5-11.1) 07/08/16 10:46 Neutrophils % 80.4 % (42.8-82.8) 07/08/16 10:46 Lymphocytes % 12.1 % (8-40) D 07/08/16 10:46 Monocytes % 4.9 % (3.8-10.2) 07/08/16 10:46 Eosinophils % 2.1 % (0-4.5) 07/08/16 10:46 Basophils % 0.5 % (0-2.0) 07/08/16 10:46 CMP Sodium 143 mmol/L (136-145) 07/08/16 10:46 Potassium 4.5 mmol/L (3.5-5.1) 07/08/16 10:46 Chloride 109 mmol/L (98-107) H 07/08/16 10:46 Carbon Dioxide 26 mmol/L (22-28) 07/08/16 10:46 Anion Gap 8 (8-16) 07/08/16 10:46 BUN 25 mg/dl (7-18) H 07/08/16 10:46 Creatinine 1.3 mg/dl (0.6-1.3) 07/08/16 10:46 Creat Clearance w eGFR 52.85 (>60) 07/07/16 19:55 POC Glucometer 66 UNITS (()) 07/08/16 17:03 Random Glucose 220 mg/dl (74-106) H D 07/08/16 10:46 Hemoglobin A1c % 6.1 % (4.8-6.0) H D 07/08/16 Unknown Calcium 9.4 mg/dl (8.4-10.2) 07/08/16 10:46 Phosphorus 3.2 mg/dl (2.5-4.6) 07/08/16 10:46 Magnesium 1.9 mg/dL (1.8-2.4) 07/08/16 10:46 Total Bilirubin 0.1 mg/dl (0.2-1.0) L D 07/07/16 19:55 AST 18 U/L (10-42) D 07/07/16 19:55 ALT 15 U/L (10-40) D 07/07/16 19:55 Alkaline Phosphatase 35 U/L (32-92) 07/07/16 19:55 Creatine Kinase 43 IU/L (38-174) 07/08/16 10:46 Troponin I < 0.03 ng/ml (0.03-0.50) L 07/08/16 10:46 B-Natriuretic Peptide Cancelled 07/08/16 10:46 Total Protein 6.5 g/dl (6.4-8.3) 07/07/16 19:55 Albumin 3.8 g/dl (3.5-5.0) 07/07/16 19:55 Laboratory Tests 07/07/16 07/08/16 07/08/16 19:55 02:00 10:46 Troponin I < 0.03 L < 0.02 < 0.03 L EK:37: sinus rhythm with 2nd degree AV block Mobitz type1, rate 57, QTC 429 1000: sinus rhythm with 1st degree AV block, missed beats, but no longer a wenckebach phenomenon, see rhythm strip, no acute ST/T changes IMAGING CXR: right basilar atelactasis, unchanged from prior US doppler L leg: No evidence of deep venous thrombosis. there is also a complex fluid collection within the medial aspect of the proximal calf that measures 4.4 x 1.5 x 2.9 cm. This most likely represents a hematoma. 06/30/16: CHEST CT WITHOUT CONTRAST: Persistent pleural-based masslike density/ consolidation the left lung base, posteriorly with pleural thickening and calcifications. Mild atelectatic changes in the right lung base. No enlarged mediastinal lymph nodes identified. Borderline prominent main pulmonary trunk that has minimally increased in size since the prior examination compatible with the clinical history of pulmonary hypertension. HOSPITAL COURSE: Patient is a 81 y/o male that was admitted from the emergency department for acute respiratory distress. Patient has past medical history of diastolic congestive heart failure. Upon arrival to the emergency department, patient was noted to be hypoxic, tachypneic with bilateral inspiratory wheeze. He was given 40mg of lasix IV in the emergency department. patient was diuressed on hospital day 1. Echo was completed with resulted as grade I diastolic dysfunction, LV wnl, in comparisson to the echo 2014, diastolic dysfunction is a new finding. BNP was noted to be elevated, patient appeared euvolemic after lasix and he was restarted on his own home demadex. Patient was noted to have 2nd degree av block upon arrival on the emergency department EKG. However, on continous cardiac monitoring patient was noted to be on sinus rhythm with first AV block. Dr Coelho, cardiology was consulted and followed. Procardia was decreased Patient has a past medical history of hypertension, altace and procardia, was continued, blood pressure remained at goal. Lipitor was continued, LFT's was wnl. 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 Underlying copd was a concern, patient was started on symbicort. Pulmonary, Dr Talbert was consulted. PLAN - follow up with pulmonary within 1 week to schedule PFT's - procardia was decreased to 30mg BID and demadex 10mg QD as per cardiology - follow up with the prune washer within 1 week Date of Admission:07/07/16 Date of Discharge: 07/09/16 Minutes to complete discharge: 45 Discharge Summary Reason For Visit: RESPIRATORY DISTRESS Condition: Stable - Instructions Diet, Activity, Other Instructions: Return to the Emergency Department for new, worsening or persistent SOB, palpitations, chest pain or other symptoms. Continue a low salt, low sugar diet. Referrals: Edwin Talbert MD [Staff Physician] - 1 Week Shivani Coelho MD [Staff Physician] - 2 Weeks Lalit Kaminski MD [Primary Care Provider] - (in 1-2 weeks, need repeat lab test: BMP) Disposition: HOME - Home Medications Comprehensive Discharge Medication List: Ambulatory Orders Methotrexate Sodium [Methotrexate] 0 mg PO ASDIR tablet 06/27/14 Glipizide 5 mg PO DAILY 07/07/16 Budesonide/Formeterol Fumarate [SYMBICORT 80/4.5mcg -] 2 puff IH BID #1 inhaler 07/08/16 Carvedilol [Coreg -] 6.25 mg PO BID #60 tablet 07/08/16 Nifedipine ER [Procardia XL -] 30 mg PO BID #60 tab 07/08/16 Torsemide [Demadex -] 10 mg PO DAILY #30 tablet 07/08/16 This patient is new to me today: No Emergency Visit: Yes ED Registration Date: 07/07/16 Care time: The patient presented to the Emergency Department on the above date and was hospitalized for further evaluation of their emergent condition. Critical Care patient: No - Discharge Referral Referred to [facility] Yes Physician Referral: Lalit Kaminski MD (Int Med)
[2016-07-10] MEDS ORDERED: TORSEMIDE 5 MG TABLET PO SCH (10:00)
[2016-07-13] MEDS ORDERED: METHOTREXATE 2.5 MG TABLET PO SCH (10:00)
== END 2016-07-08 21:10 | disposition home or self-care (01) | DRG 291 ==
LOC: FER 19:17 → SUPCPDRO 19:17 → FM/S 22:47 → UNDOADMIN 07-08 00:12 → FM/S 07-08 09:39
PROVIDERS: ADMIT Internal Medicine; ATTEND Nurse Practitioner Family
DX: I13.0 Hypertensive heart and chronic kidney disease with heart failure and stage 1 through stage 4 chronic kidney disease, or unspecified chronic kidney disease (principal); I50.31 Acute diastolic (congestive) heart failure; J98.11 Atelectasis; E11.22 Type 2 diabetes mellitus with diabetic chronic kidney disease; N18.9 Chronic kidney disease, unspecified; K21.9 Gastro-esophageal reflux disease without esophagitis; E78.5 Hyperlipidemia, unspecified; M06.9 Rheumatoid arthritis, unspecified; M10.9 Gout, unspecified; I44.1 Atrioventricular block, second degree; I27.2 Other secondary pulmonary hypertension; I25.10 Atherosclerotic heart disease of native coronary artery without angina pectoris; I83.90 Asymptomatic varicose veins of unspecified lower extremity; R00.1 Bradycardia, unspecified; R06.82 Tachypnea, not elsewhere classified; Z95.1 Presence of aortocoronary bypass graft; Z96.651 Presence of right artificial knee joint; Z77.090 Contact with and (suspected) exposure to asbestos
CPT/HCPCS: 36415; 71010-TC; 80048; 80053; 81003; 81015; 82550; 83036; 83735; 83880; 84100; 84484; 85025; 85610; 93005; 93306-TC; 93971-TC; 99285-25; J1644

== ENCOUNTER 2017-04-28 22:07 | Inpatient (IN) | payer OTHER ==
--- NOTE | 2017-04-28 22:30 | PDOC ---
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 Patient had an active day running errands and cooking for family; he denies having any new symptoms during the day or early in the evening. In mid evening, he took a very warm shower and became very short of breath. This lasted until EMS was called and he was given supplemental oxygen and dyspnea resolved. He is currently asymptomatic He denies chest pain, palpitations (either irregular or rapid heartbeat), nausea, diaphoresis. He has baseline mild dyspnea on exertion (for example, climbing stairs) which has not changed recently. No recent increase in peripheral edema. He denies recent febrile illness/cough. There has been no recent prolonged inactivity or surgery. No medication changes except "water pill" dose decreased from 40mg to 20mg 2 months ago PMD-Dr. Kaminski Drug Safety Coordinator-Dr. Meliton Pollard as noted below Past History - Past Medical History Allergies/Adverse Reactions: Allergies Allergy/AdvReac Type Severity Reaction Status Date / Time No Known Drug Allergies Allergy Verified 07/07/16 19:19 Home Medications: Ambulatory Orders Methotrexate Sodium [Methotrexate] 0 mg PO ASDIR tablet 06/27/14 Glipizide 5 mg PO DAILY 07/07/16 Budesonide/Formeterol Fumarate [SYMBICORT 80/4.5mcg -] 2 puff IH BID #1 inhaler 07/08/16 Carvedilol [Coreg -] 6.25 mg PO BID #60 tablet 07/08/16 Nifedipine ER [Procardia XL -] 30 mg PO BID #60 tab 07/08/16 Torsemide [Demadex -] 10 mg PO DAILY #30 tablet 07/08/16 Nifedipine [Adalat Cc] 30 mg PO BID 10/06/16 Torsemide 5 mg PO QOD tablet 10/06/16 Anemia: No Asthma: No Cancer: No Cardiac Disorders: Yes (s/p cabg 2003) CVA: No COPD: No CHF: No Dementia: No Diabetes: Yes GI Disorders: No Disorders: No HTN: Yes Hypercholesterolemia: No Kidney Stones: Yes Liver Disease: No Seizures: No Thyroid Disease: No - Surgical History Abdominal Surgery: No Appendectomy: No Cardiac Surgery: Yes (CABG X 3-LAST STRESS TEST 1 MONTH AGO) Cholecystectomy: No Lung Surgery: No Neurologic Surgery: No Orthopedic Surgery: Yes (RIGHT KNEE REPLACEMENT 2011) - Suicide/Smoking/Psychosocial Hx Smoking Status: No Smoking History: Unknown if ever smoked Have you smoked in the past 12 months: No Number of Cigarettes Smoked Daily: 0 Information on smoking cessation initiated: No Hx Alcohol Use: No Drug/Substance Use Hx: No Substance Use Type: None Hx Substance Use Treatment: No Review of Systems - Review of Systems Able to Perform ROS?: Yes Comments:: 12 point review of systems is negative except for what is noted in the history of present illness *Physical Exam - Vital Signs Last Vital Signs Temp Pulse Resp BP Pulse Ox 98.4 F 55 L 18 182/75 100 04/28/17 22:09 04/28/17 22:09 04/28/17 22:09 04/28/17 22:09 04/28/17 22:09 - Physical Exam Comments: GENERAL: Elderly male, alert and oriented 3, speaking in full sentences, in no acute respiratory distress HEAD: Normal with no signs of trauma. EYES: PERRLA, EOMI, sclera anicteric, conjunctiva clear. ENT: Ears normal, nares patent, oropharynx clear without exudates. Moist mucous membranes. NECK: Normal range of motion, supple without lymphadenopathy, JVD, or masses. LUNGS: Breath sounds equal, clear to auscultation bilaterally. No wheezes, and no crackles. HEART:Regular rate and rhythm, normal S1 and S2 without murmur, rub or gallop. ABDOMEN:.normal bowel sounds No guarding,tenderness or rebound.No masses No distention. EXTREMITIES: 2 + pitting edema to mid lower leg bilaterally; no tenderness/ masses/cords NEURO: Cranial nerves intact; moving all 4 extremities equally; speech fluent, MUSCULOSKELETAL: Back non-tender to palpation, no CVA tenderness SKIN: Warm, Dry, normal turgor, no rashes or lesions noted. 12-lead electrocardiogram performed and interpreted by me. This shows normal sinus rhythm with second-degree AV block (Wenckebach ) no acute ST or T-wave abnormalities. Tracing is essentially unchanged from previous 12-lead electrocardiogram on record dated 07/07/16 Heart Score/ECG Review - History History: Moderately suspicious - Electrocardiogram EKG: Normal - Age Age: >/= 65 - Risk Factors Risk Factors Heart Score: Yes Hx Hypercholesterolemia, Yes Hx Hypertension, Yes Hx Diabetes Based on the list above the patient has:: >/=3 risk factors or Hx atherosclerotic disease - Troponin Troponin: </= normal limit - Score Heart Score - Total: 5 ED Treatment Course - LABORATORY CBC & Chemistry Diagram: 04/28/17 23:20 04/28/17 23:20 Medical Decision Making - Medical Decision Making 04/29/17 00:59 As noted above, this patient with a history of coronary artery disease/HTN/ pulmonary HTN and Wenkebach second-degree block presents with episode of shortness of breath while taking a shower this evening. No other associated symptoms and patient has been without recurrence of symptoms while here. Laboratory evaluation reveals mild decrease in H&H(11.3/34.2), no electrolyte abnormalities; BUN slightly elevated at 38 with creatinine stable at 1.2. Troponin is not elevated at less than 0.03 BNP pending Portable chest x-ray shows bibasilar atelectasis without evidence of infiltrates /effusions or CHF Cardiac monitoring reveals bradycardia to 40bpm while patient is sleeping(vs 55bpm when awake and alert) 04/29/17 01:57 BNP 642 Given the patient's history of coronary artery disease, pulmonary hypertension and severe bradycardia during sleep noted while here in the emergency room, admission warranted to fully rule out NC and to further evaluate dyspneic episode. Case discussed with LIZETH Ogelsby of [facility] service: Patient will be admitted telemetry, observation status to service *DC/Admit/Observation/Transfer Diagnosis at time of Disposition: Dyspnea Qualifiers: Dyspnea type: shortness of breath Qualified Code(s): R06.02 - Shortness of breath - Discharge Dispostion Condition at time of disposition: Guarded Admit: Yes - Referrals - Patient Instructions - Post Discharge Activity
[2017-04-28 23:31] LABS: BASO % 0.6 % (0-2.0); EOS % 2.2 % (0-4.5); HEMATOCRIT 34.1 % (35.4-49); HEMOGLOBIN 11.3 GM/dl (11.7-16.9); LYMPH % 16.6 % (8-40); MCH 30.9 pg (25.7-33.7); MCHC 33.1 g/dl (32.0-35.9); MEAN CELL VOLUME 93.5 fl (80-96); MEAN PLT VOLUME 7.8 fl (7.5-11.1); MONO % 5.6 % (3.8-10.2); PLATELET COUNT 136 K/MM3 (134-434); RBC 3.64 M/mm3 (4.00-5.60); RDW 15.9 % (11.9-15.9); WHITE BLOOD COUNT 6.4 K/mm3 (4.0-10.8)
[2017-04-28 23:41] LABS: INR 1.11 (0.82-1.09); PROTHROMBIN TIME (PATIENT) 12.4 SEC (10.2-13.0)
[2017-04-28 23:46] LABS: ALBUMIN 3.8 g/dl (3.5-5.0); ALK PHOS 38 U/L (32-92); ANION GAP 4 (8-16); BILIRUBIN,TOTAL 0.6 mg/dl (0.2-1.0); BLOOD UREA NITROGEN 38 mg/dl (7-18); CALCIUM 8.6 mg/dl (8.4-10.2); CHLORIDE 104 mmol/L (98-107); CO2 27 mmol/L (22-28); CREATININE 1.2 mg/dl (0.6-1.3); GLUCOSE,RANDOM 152 mg/dl (74-106); POTASSIUM 4.8 mmol/L (3.5-5.1); SGOT/AST 26 U/L (10-42); SGPT/ALT 25 U/L (10-40); SODIUM 135 mmol/L (136-145); TOT PROT 6.6 g/dl (6.4-8.3)
[2017-04-29 01:39] LABS: N-TERMINAL BNP 642.28 pg/ml (5-450)
[2017-04-29 05:23] VITALS: BMI 29.3
[2017-04-29] MEDS: INSULIN SLIDING SCALE (NOVOLOG) 1 VIAL SQ SCH ×4 (06:25→21:34)
[2017-04-29] MEDS ORDERED: INSULIN SLIDING SCALE (NOVOLOG) 1 VIAL SQ SCH (07:00)
[2017-04-29 08:06] LABS: BASO % 0.4 % (0-2.0); EOS % 2.8 % (0-4.5); HEMATOCRIT 32.4 % (35.4-49); HEMOGLOBIN 10.8 GM/dl (11.7-16.9); LYMPH % 24.9 % (8-40); MCH 31.6 pg (25.7-33.7); MCHC 33.5 g/dl (32.0-35.9); MEAN CELL VOLUME 94.4 fl (80-96); MEAN PLT VOLUME 7.9 fl (7.5-11.1); MONO % 6.1 % (3.8-10.2); NEUT % 65.8 % (42.8-82.8); PLATELET COUNT 140 K/MM3 (134-434); RBC 3.43 M/mm3 (4.00-5.60); RDW 16.1 % (11.9-15.9); WHITE BLOOD COUNT 4.9 K/mm3 (4.0-10.8)
[2017-04-29 08:12] LABS: ANION GAP 2 (8-16); BLOOD UREA NITROGEN 34 mg/dl (7-18); CALCIUM 8.4 mg/dl (8.4-10.2); CHLORIDE 108 mmol/L (98-107); CO2 30 mmol/L (22-28); CREATININE 1.2 mg/dl (0.6-1.3); GLUCOSE,RANDOM 135 mg/dl (74-106); MAGNESIUM 2.2 mg/dL (1.8-2.4); PHOSPHOROUS 3.2 mg/dl (2.5-4.6); POTASSIUM 4.4 mmol/L (3.5-5.1); SODIUM 140 mmol/L (136-145)
--- NOTE | 2017-04-29 08:33 | HP ---
CHIEF COMPLAINT: shortness of breath PCP: Dr Kaminski Hand Lens Polisher: Dr Coelho HISTORY OF PRESENT ILLNESS: Patient is a 81 y/o male with a past medical history of DM, CKD, CAD, CABG 2004, copd, and gout. Patient reports one month of progressive shortness of breath and dyspnea upon exertion. He reports running errands yesterday morning and felt increasingly dyspnec soon after. Patient denies any chest pain. Yesterday evening, patient attempted to take a shower in order to obtain some relief of respiratory symptoms. While in the shower, patient felt his shortness of breath worsened, patient's called EMS and was given supplemental O2 with complete resolution of symptoms. ER course was notable for: (1) bnp 642 (2) ekg sinus rhythm with 2nd degree av block mobitz I (unchanged from prior ekg 07/01) (3)cxr new bibasilar athelaactasis Recent Travel: none PAST MEDICAL HISTORY: see hpi PAST SURGICAL HISTORY: cabg x 3 (2003) Social History: resides at home with , retired Smoking: none Alcohol:none Drugs: none Family History: brother (CAD) Allergies No Known Drug Allergies Allergy (Verified 07/07/16 19:19) HOME MEDICATIONS: Home Medications Medication Instructions Recorded Methotrexate Sodium [Methotrexate] 0 mg PO ASDIR tablet 06/27/14 Glipizide 5 mg PO DAILY 07/07/16 Budesonide/Formeterol Fumarate 2 puff IH BID #1 inhaler 07/08/16 [SYMBICORT 80/4.5mcg -] Carvedilol [Coreg -] 6.25 mg PO BID #60 tablet 07/08/16 Nifedipine ER [Procardia XL -] 30 mg PO BID #60 tab 07/08/16 Torsemide [Demadex -] 10 mg PO DAILY #30 tablet 07/08/16 Nifedipine [Adalat Cc] 30 mg PO BID 10/06/16 Torsemide 5 mg PO QOD tablet 10/06/16 REVIEW OF SYSTEMS CONSTITUTIONAL: Absent: fever, chills, diaphoresis, generalized weakness, malaise, loss of appetite, weight change HEENT: Absent: rhinorrhea, nasal congestion, throat pain, throat swelling, difficulty swallowing, mouth swelling, ear pain, eye pain, visual changes CARDIOVASCULAR: Absent: chest pain, syncope, palpitations, irregular heart rate, lightheadedness , peripheral edema RESPIRATORY: Present: shortness of breath, dyspnea with exertion, orthopnea Absent: cough, wheezing, stridor, hemoptysis GASTROINTESTINAL: Absent: abdominal pain, abdominal distension, nausea, vomiting, diarrhea, constipation, melena, hematochezia GENITOURINARY: Absent: dysuria, frequency, urgency, hesitancy, hematuria, flank pain, genital pain MUSCULOSKELETAL: Absent: myalgia, arthralgia, joint swelling, back pain, neck pain SKIN: Absent: rash, itching, pallor HEMATOLOGIC/IMMUNOLOGIC: Absent: easy bleeding, easy bruising, lymphadenopathy, frequent infections ENDOCRINE: Absent: unexplained weight gain, unexplained weight loss, heat intolerance, cold intolerance NEUROLOGIC: Absent: headache, focal weakness or paresthesias, dizziness, unsteady gait, seizure, mental status changes, bladder or bowel incontinence PSYCHIATRIC: Absent: anxiety, depression, suicidal or homicidal ideation, hallucinations. PHYSICAL EXAMINATION Vital Signs - 24 hr 04/28/17 04/28/17 04/28/17 22:09 23:29 23:30 Temperature 98.4 F Pulse Rate 55 L 55 L 55 L Pulse Rate [ Left Radial] Respiratory 18 Rate Blood Pressure 182/75 Blood Pressure [Right Arm] O2 Sat by Pulse 100 100 100 Oximetry (%) 04/29/17 04/29/17 04:40 05:07 Temperature 98.1 F Pulse Rate 39 L Pulse Rate [ 45 L Left Radial] Respiratory 14 20 Rate Blood Pressure 160/90 Blood Pressure 154/54 [Right Arm] O2 Sat by Pulse 95 Oximetry (%) GENERAL: Awake, alert, and fully oriented, in no acute distress. HEAD: Normal with no signs of trauma. EYES: Pupils equal, round and reactive to light, extraocular movements intact, sclera anicteric, conjunctiva clear. No lid lag. EARS, NOSE, THROAT: Ears normal, nares patent, oropharynx clear without exudates. Moist mucous membranes. NECK: Normal range of motion, supple without lymphadenopathy, + JVD, or masses. LUNGS: Breath sounds equal, clear to auscultation bilaterally to apexes, rales to bilateral bases. No wheezes, and no crackles. No accessory muscle use. HEART: Regular rate and rhythm, normal S1 and S2, 3/6 systolic murmur, no rub or gallop. ABDOMEN: Soft, nontender, not distended, normoactive bowel sounds, no guarding, no rebound, no masses. No hepatomegaly or splenomegaly. MUSCULOSKELETAL: Normal range of motion at all joints. No bony deformities or tenderness. No CVA tenderness. UPPER EXTREMITIES: 2+ pulses, warm, well-perfused. No cyanosis. No clubbing. No peripheral edema. LOWER EXTREMITIES: 2+ pulses, warm, well-perfused. No calf tenderness. +2 peripheral edema, with multiple varicosites bilaterally NEUROLOGICAL: Cranial nerves II-XII intact. Normal speech. Normal gait. PSYCHIATRIC: Cooperative. Good eye contact. Appropriate mood and affect. SKIN: Warm, dry, normal turgor, no rashes or lesions noted, normal capillary refill. Laboratory Results - last 24 hr 04/28/17 04/28/17 04/28/17 23:20 23:20 23:20 WBC 6.4 RBC 3.64 L Hgb 11.3 L D Hct 34.1 L MCV 93.5 MCH 30.9 MCHC 33.1 RDW 15.9 Plt Count 136 MPV 7.8 Neutrophils % 75.0 Lymphocytes % 16.6 D Monocytes % 5.6 Eosinophils % 2.2 Basophils % 0.6 PT with INR INR Sodium 135 L Potassium 4.8 Chloride 104 Carbon Dioxide 27 Anion Gap 4 L BUN 38 H Creatinine 1.2 Creat Clearance w eGFR 57.96 POC Glucometer Random Glucose 152 H Calcium 8.6 Phosphorus Magnesium Total Bilirubin 0.6 AST 26 ALT 25 Alkaline Phosphatase 38 Creatine Kinase 67 Troponin I < 0.03 B-Natriuretic Peptide 642.28 H Total Protein 6.6 Albumin 3.8 04/28/17 04/29/17 04/29/17 23:20 06:19 07:15 WBC 4.9 RBC 3.43 L Hgb 10.8 L Hct 32.4 L MCV 94.4 MCH 31.6 MCHC 33.5 RDW 16.1 H Plt Count 140 MPV 7.9 Neutrophils % 65.8 Lymphocytes % 24.9 D Monocytes % 6.1 Eosinophils % 2.8 Basophils % 0.4 PT with INR 12.4 INR 1.11 Sodium Potassium Chloride Carbon Dioxide Anion Gap BUN Creatinine Creat Clearance w eGFR POC Glucometer 138 Random Glucose Calcium Phosphorus Magnesium Total Bilirubin AST ALT Alkaline Phosphatase Creatine Kinase Troponin I B-Natriuretic Peptide Total Protein Albumin 04/29/17 07:15 WBC RBC Hgb Hct MCV MCH MCHC RDW Plt Count MPV Neutrophils % Lymphocytes % Monocytes % Eosinophils % Basophils % PT with INR INR Sodium 140 Potassium 4.4 Chloride 108 H Carbon Dioxide 30 H Anion Gap 2 L BUN 34 H Creatinine 1.2 Creat Clearance w eGFR POC Glucometer Random Glucose 135 H Calcium 8.4 Phosphorus 3.2 Magnesium 2.2 Total Bilirubin AST ALT Alkaline Phosphatase Creatine Kinase Troponin I B-Natriuretic Peptide Total Protein Albumin ASSESSMENT/PLAN: f/e/n - low sodium diabetic diet - replete electrolytes prn ppx - oob - scd - heparin sq Problem List - Problem (1) Coronary artery disease Assessment/Plan: - patient is s/p cabg 2003, continue asa and statin, pending lipid profile Code(s): I25.10 - ATHSCL HEART DISEASE OF [place] CORONARY ARTERY W/O ANG PCTRS (2) Diabetes mellitus Assessment/Plan: - pending hemoglobin a1c, fingersticks achs with home dose glipizide Code(s): E11.9 - TYPE 2 DIABETES MELLITUS WITHOUT COMPLICATIONS Qualifiers: Diabetes mellitus type: type 2 Diabetes mellitus complication status: without complication (3) Gout Assessment/Plan: - continue alluprinol Code(s): M10.9 - GOUT, UNSPECIFIED (4) HTN (hypertension) Assessment/Plan: - b/p at goal, continue nifedepine hold coreg due to bradycardia Code(s): I10 - ESSENTIAL (PRIMARY) HYPERTENSION (5) Rheumatoid arthritis Assessment/Plan: - continue home dose methotrexate Code(s): M06.9 - RHEUMATOID ARTHRITIS, UNSPECIFIED (6) Diastolic congestive heart failure Assessment/Plan: - fluid overload noted on exam, start lasix 40mg IV daily - strict i/o and daily weight - pending echo last echo 07/01, grade I diastolic dysfunction, moderate TR - appreciate cardiology input, Dr Coelho, patient's private cyber security analyst Code(s): I50.30 - UNSPECIFIED DIASTOLIC (CONGESTIVE) HEART FAILURE Qualifiers: Heart failure chronicity: acute on chronic Qualified Code(s): I50.33 - Acute on chronic diastolic (congestive) heart failure (7) Bradycardia Assessment/Plan: - rate 42 noted on cardiac monitoring, patient is asymptomatic, hold coreg, strict monitoring Code(s): R00.1 - BRADYCARDIA, UNSPECIFIED (8) COPD (chronic obstructive pulmonary disease) Code(s): J44.9 - CHRONIC OBSTRUCTIVE PULMONARY DISEASE, UNSPECIFIED Visit type - Emergency Visit Emergency Visit: Yes ED Registration Date: 04/29/17 Care time: The patient presented to the Emergency Department on the above date and was hospitalized for further evaluation of their emergent condition. - New Patient This patient is new to me today: Yes Date on this admission: 05/03/17 - Critical Care Critical Care patient: Yes Total Critical Care Time (in minutes): 45 Critical Care Statement: The care of this patient involved high complexity decision making to prevent further life threatening deterioration of the patient 's condition and/or to evaluate & treat vital organ system(s) failure or risk of failure. Hospitalist Screening - Colonoscopy Questionnaire Colonoscopy Questionnaire: Colonoscopy Questionnaire - Patient: 50 - 75 years old and never had a screening colonoscopy: No History of colon or rectal polyps, or CA: No History of IBD, Crohn's disease or UC: No History of abdominal radiation therapy as a child: No - Relative: 1 with colon or rectal CA, or polyps at age 60 or younger: No Colon or rectal CA diagnosed at age 45 or younger: No Multiple relatives with colon or rectal CA: No - Outcome: Screening Result: Negative Screen
[2017-04-29] MEDS ORDERED: ALBUTEROL SO4 0.083% IH SOL 2.5 MG/3 ML VIAL.NEB. NEB PRN (09:19)
[2017-04-29] MEDS ORDERED: ACETAMINOPHEN 325 MG TABLET (FP) PO PRN (09:20)
[2017-04-29] MEDS ORDERED: PATIENT'S OWN MEDICATION (NON-FORMULARY) (Omeprazole 20 MG) PO SCH (10:00)
[2017-04-29] MEDS ORDERED: NIFEDIPINE 30 MG PO SCH (10:00)
[2017-04-29] MEDS ORDERED: PATIENT'S OWN MEDICATION (NON-FORMULARY) (Simvastatin [Zocor] 40 MG) PO SCH (10:00)
[2017-04-29] MEDS ORDERED: FUROSEMIDE 40 MG/4 ML INJECTABLE VIAL IVPUSH ONE (10:00)
[2017-04-29] MEDS: glipiZIDE 5 MG TABLET (FP) PO SCH (10:08)
[2017-04-29] MEDS: HEPARIN NA (PORCINE) 5,000 UNITS/ML 1ML VIAL SQ SCH ×2 (10:08→21:33)
[2017-04-29] MEDS: PANTOPRAZOLE 20 MG TABLET (FP) PO SCH ×2 (10:09→21:32)
[2017-04-29] MEDS: NIFEdipine E.R. 30 MG TABLET (FP) PO SCH ×2 (10:09→21:32)
[2017-04-29] MEDS: BUDESONIDE/FORMETEROL FUMARATE 80/4.5 mcg INHALER IH SCH ×2 (10:09→21:35)
[2017-04-29] MEDS ORDERED: PT OWN MED DRAWER 7, Y5N ONE ×2 (11:34→21:17)
--- NOTE | 2017-04-29 14:38 | CON.CARD ---
Cardiology Consult (text) - Consultation Consultation Note: cc: sob 81 yo with pmhx of CAD s/p CABG 2003 [facility] (ZEE-LAD, SVG-OM, SVG-PDA/drca ) , HTN with diastolic dysfunction, severe pHTN with mild-mod RV dilation, MAC with mild functional MS, mild-mod MR, HL, AV delay/wenckebach/bradycardia, varicose veins, RA, NIDDM, mild ckd (bline cr 1.3) Gout, OA s/p b tkr who presents with acute sob. Patient had an active day running errands and cooking for family. At dinner his family noticed he was slightly out of breath. Later, he took a very warm shower and experienced acute onset of severe dyspnea. This lasted about 15 min until EMS was called and he was given supplemental oxygen and dyspnea resolved. He is currently asymptomatic He has baseline mild dyspnea on exertion (for example, climbing stairs) which has not changed recently. No recent increase in peripheral edema or weight gain. About a month ago he changed his lasix 40 mg/day to 20 mg bid. He denies recent infectious symptoms. Last weight in office was 180 lbs in february on regimen of lasix 40 mg/day. At february office visit he had suboptimal bp control and nifedipine was increased from 30 daily to 30 bid. Had stable chest heaviness with exertion and plan was trial of ntg to see if sx's were anginal in nature. Has plan for repeat echo in may. s/p lasix 40 mg IV x 1 today. PMD-Dr. Kaminski Sr. Payroll Processor-Dr. Coelho Renal: Margaux Pulm: Brill no other sx's including cp, palps, dizziness, syncope, bleeding, diaphoresis or transient neurologic sx's. no f/c/s, n/v/d, h/a, rashes, visual disturbances, cough, congestion. pmhx/pshx: per hpi fam hx: brother with bypass in his 60's social hx: never smoker ros: per hpi Ambulatory Orders Methotrexate Sodium [Methotrexate] 0 mg PO ASDIR tablet 06/27/14 Glipizide 5 mg PO DAILY 07/07/16 Budesonide/Formeterol Fumarate [SYMBICORT 80/4.5mcg -] 2 puff IH BID #1 inhaler 07/08/16 Carvedilol [Coreg -] 6.25 mg PO BID #60 tablet 07/08/16 Nifedipine ER [Procardia XL -] 30 mg PO BID #60 tab 07/08/16 Torsemide [Demadex -] 10 mg PO DAILY #30 tablet 07/08/16 Nifedipine [Adalat Cc] 30 mg PO BID 10/06/16 Torsemide 5 mg PO QOD tablet 10/06/16 cardiac meds per office notes: ASA 81 mg/day, nifedipine xl 30 mg bid, coreg 12.5 mg po bid, lasix 40 mg with extra dose prn dietary indiscretions, simvastatin 40 mg/day Current Medications Acetaminophen (Tylenol -) 650 mg PO Q4H PRN PRN Reason: FEVER Albuterol Sulfate (Ventolin 0.083% Nebulizer Soln -) 1 amp NEB Q4H PRN PRN Reason: SHORT OF BREATH/WHEEZING Last Admin: 04/29/17 11:45 Dose: 1 amp Atorvastatin Calcium (Lipitor -) [address] [facility] Budesonide/Formoterol Fumarate (Symbicort 80/4.5mcg -) 2 puff IH BID [facility] Last Admin: 04/29/17 10:09 Dose: 2 puff Glipizide (Glucotrol -) 5 mg PO DAILY@0700 [facility] Last Admin: 04/29/17 10:08 Dose: 5 mg Heparin Sodium (Porcine) (Heparin -) 5,000 unit SQ BID [facility] Last Admin: 04/29/17 10:08 Dose: 5,000 unit Insulin Aspart (Novolog Vial Sliding Scale -) 1 vial SQ HS [facility] PRN Reason: Protocol Insulin Aspart (Novolog Vial Sliding Scale -) 1 vial SQ TIDAC [facility] PRN Reason: Protocol Last Admin: 04/29/17 11:43 Dose: 2 units Nifedipine (Procardia Xl -) 30 mg PO BID [facility] Last Admin: 04/29/17 10:09 Dose: 30 mg Pantoprazole Sodium (Protonix -) 20 mg PO BID [facility] Last Admin: 04/29/17 10:09 Dose: 20 mg Vital Signs - 24 hr 04/28/17 04/28/17 04/28/17 22:09 23:29 23:30 Temperature 98.4 F Pulse Rate 55 L 55 L 55 L Pulse Rate [ Left Radial] Respiratory 18 Rate Blood Pressure 182/75 Blood Pressure [Right Arm] O2 Sat by Pulse 100 100 100 Oximetry (%) 04/29/17 04/29/17 04/29/17 04:40 05:07 10:10 Temperature 98.1 F Pulse Rate 39 L 60 Pulse Rate [ 45 L Left Radial] Respiratory 14 20 Rate Blood Pressure 160/90 145/83 Blood Pressure 154/54 [Right Arm] O2 Sat by Pulse 95 Oximetry (%) 04/29/17 04/29/17 10:20 14:23 Temperature 98.8 F Pulse Rate 74 Pulse Rate [ Left Radial] Respiratory 19 Rate Blood Pressure 141/56 Blood Pressure [Right Arm] O2 Sat by Pulse 98 95 Oximetry (%) Intake & Output 04/27/17 04/28/17 04/29/17 04/30/17 07:59 07:59 07:59 07:59 Intake Total 825 Balance 825 Weight 176 lb 8 oz nad, calm jvd elevated, neck supple trace rales, nl effort rrr nl s1, s2 2/6 sys murmur at lsb and apex + bs soft nt nd ext with trace edema. + dp/pt ext without cyanosis or clubbing no jaundice, diaphoresis aaox3 no carotid bruits CBC, BMP 04/29/17 07:15 04/29/17 07:15 Selected Entries 04/28/17 22:09 Blood Pressure 182/75 Laboratory Tests 07/08/16 03/03/17 04/28/17 02:00 12:04 23:20 Sodium 135 L Hemoglobin A1c % Creatine Kinase Troponin I B-Natriuretic Peptide 1143.33 H 504.24 H 642.28 H TSH 04/28/17 04/29/17 04/29/17 23:20 07:10 07:10 Sodium Hemoglobin A1c % 6.4 H D Creatine Kinase Troponin I < 0.03 B-Natriuretic Peptide TSH 0.57 D 04/29/17 04/29/17 07:15 09:48 Sodium Hemoglobin A1c % Creatine Kinase 45 Troponin I < 0.03 B-Natriuretic Peptide TSH EKG: sb with AV delay and wenckebach. anterior q waves. no acute ischemic changes, similar to priors. tele: sr/sb with wenckebach cxr: new bibasilar atelectasis (by my review: pt with known right hemidiaphragm elevation, persistent fluid vs. scarring in fissure). echo 05/2016: mild lvh, with additional basal septal hypertrophy. nl lv size/fn , mild-mod RV dil, nl fn, E, A reversal. A 1.1 m/s. E/E' inc, sev lae, mild sea , IAS aneuyrsmal, 1+ ar, mild-mod mr, (by my review mod mac with 1+ func ms - I measured MG 4 mmHg), mod tr, rvsp 62, , nl ivc cath 2002 [facility]: LVEDP 13-17. 60% plad, 95% mLAD/D2, 95% oD1, 50 % oD2, 95% pLCx, 95% mLCx, 40% om2, 80% prca, 60% drca. EF 65% 81 yo with pmhx of CAD s/p CABG 2003 [facility] (ZEE-LAD, SVG-OM, SVG-PDA/drca ) , HTN with diastolic dysfunction, severe pHTN with mild-mod RV dilation, MAC with mild functional MS, mild-mod MR, HL, AV delay/wenckebach/bradycardia, varicose veins, RA, NIDDM, mild ckd (bline cr 1.3) Gout, OA s/p b tkr who presents with acute sob. sob - appears volume up based on jvd and cxr, will give one more dose of IV lasix tomorrow and then consider transition to po regimen. Pt cr/k sensitive to diuresis. - concerned that sob is anginal in nature. ce's neg x 2. con't grace. ekg without ischemic changes. plan on stress testing tomorrow. diastolic dysfunction/severe phtn/RV dilation - diuresis plan as above. CAD s/p CABG - con't grace - con't statin, nifedipine. resume asa, coreg - will plan on stress testing in the morning. htn - - off acei due to persistent hyperkalemia. resume coreg, con't nifedipine. Wenckebach - known AV conduction delay. Asx. OK to con't coreg 12.5 bid. - patient with functional ms and benefits from slow heart rate. no risk for progression of bradyarrhythmia from wenckebach. ckd: stable cr
[2017-04-29] MEDS: ASPIRIN COATED 81 MG TABLET.EC PO SCH (15:45)
[2017-04-29] MEDS ORDERED: INSULIN (NOVOLOG) ASPART 100 UNITS/ML 10ML VIAL ONE (21:16)
[2017-04-29] MEDS: ATORVASTATIN CA 20 MG TABLET (FP) PO SCH (21:33)
[2017-04-29] MEDS ORDERED: CARVEDILOL 6.25 MG TABLET (FP) PO ONE (22:00)
[2017-04-30] MEDS: INSULIN SLIDING SCALE (NOVOLOG) 1 VIAL SQ SCH ×4 (06:39→21:17)
[2017-04-30] MEDS: glipiZIDE 5 MG TABLET (FP) PO SCH (06:39)
[2017-04-30] MEDS ORDERED: PT OWN MED DRAWER 7, Y5N ONE ×2 (09:10→21:02)
[2017-04-30] MEDS ORDERED: FUROSEMIDE 40 MG/4 ML INJECTABLE VIAL IVPUSH ONE (09:15)
[2017-04-30] MEDS ORDERED: REGADENOSON 0.4 MG/5 ML PRE-FILLED SYRINGE IVPUSH ONE ×2 (10:09→10:15)
[2017-04-30] MEDS: HEPARIN NA (PORCINE) 5,000 UNITS/ML 1ML VIAL SQ SCH ×2 (13:49→21:16)
[2017-04-30] MEDS: BUDESONIDE/FORMETEROL FUMARATE 80/4.5 mcg INHALER IH SCH ×2 (13:50→21:21)
[2017-04-30] MEDS: ASPIRIN COATED 81 MG TABLET.EC PO SCH (13:50)
[2017-04-30] MEDS: NIFEdipine E.R. 30 MG TABLET (FP) PO SCH ×2 (13:50→21:16)
[2017-04-30] MEDS: PANTOPRAZOLE 20 MG TABLET (FP) PO SCH ×2 (13:50→21:16)
--- NOTE | 2017-04-30 14:19 | PN ---
Physical Exam: SUBJECTIVE: Patient seen and examined, pending nuclear stress test today, reports breathing is much improved OBJECTIVE:Patient is a 81 y/o male with a past medical history of DM, CKD, CAD, CABG 2004, copd, and gout. Patient was admitted from the emergency department for acute chf exacerbation. Vital Signs Period Temp Pulse Resp BP Sys/Downs Pulse Ox Last 24 Hr 98.2 F-98.8 F 53-91 18-20 139-161/37-71 92-97 GENERAL: The patient is awake, alert, and fully oriented, in no acute distress. HEAD: Normal with no signs of trauma. EYES: PERRL, extraocular movements intact, sclera anicteric, conjunctiva clear. No ptosis. ENT: Ears normal, nares patent, oropharynx clear without exudates, moist mucous membranes. NECK: Trachea midline, full range of motion, supple. LUNGS: Breath sounds equal, clear to auscultation bilaterally to apexes, rales to bases bilaterally, no wheezes, no crackles, no accessory muscle use. HEART: Regular rate and rhythm, S1, S2, 3/6 systolic murmur, no rub or gallop. ABDOMEN: Soft, nontender, nondistended, normoactive bowel sounds, no guarding, no rebound, no hepatosplenomegaly, no masses. EXTREMITIES: 2+ pulses, warm, well-perfused, trace edema bilaterally to lower extremities. NEUROLOGICAL: Cranial nerves II through XII grossly intact. Normal speech, gait not observed. PSYCH: Normal mood, normal affect. SKIN: Warm, dry, normal turgor, no rashes or lesions noted Laboratory Results - last 24 hr 04/29/17 04/29/17 04/29/17 16:00 16:00 20:58 POC Glucometer 335 Creatine Kinase 45 Troponin I < 0.03 04/30/17 06:28 POC Glucometer 114 Creatine Kinase Troponin I Active Medications Generic Name Dose Route Start Last Admin Trade Name Freq PRN Reason Stop Dose Admin Acetaminophen 650 mg 04/29/17 09:20 Tylenol - PO Q4H PRN FEVER Albuterol Sulfate 1 amp 04/29/17 09:19 04/29/17 11:45 Ventolin 0.083% Nebulizer Soln - NEB 1 amp Q4H PRN Administration SHORT OF BREATH/WHEEZING Aspirin 81 mg 04/29/17 14:45 04/30/17 13:50 Ecotrin - PO 81 mg DAILY TRACY Administration Atorvastatin Calcium 20 mg 04/29/17 22:00 04/29/17 21:33 Lipitor - PO 20 mg HS TRACY Administration Budesonide/Formoterol Fumarate 2 puff 04/29/17 10:00 04/30/17 13:50 Symbicort 80/4.5mcg - IH 2 puff BID TRACY Administration Glipizide 5 mg 04/29/17 10:00 04/30/17 06:39 Glucotrol - PO Not Given DAILY@0700 [facility] Heparin Sodium (Porcine) 5,000 unit 04/29/17 10:00 04/30/17 13:49 Heparin - SQ 5,000 unit BID TRACY Administration Insulin Aspart 1 vial 04/29/17 22:00 04/29/17 21:34 Novolog Vial Sliding Scale - SQ 4 units HS TRACY Administration Protocol Insulin Aspart 1 vial 04/29/17 07:00 04/30/17 13:48 Novolog Vial Sliding Scale - SQ 3 units TIDAC TRACY Administration Protocol Nifedipine 30 mg 04/29/17 10:00 04/30/17 13:50 Procardia Xl - PO 30 mg BID TRACY Administration Pantoprazole Sodium 20 mg 04/29/17 10:00 04/30/17 13:50 Protonix - PO 20 mg BID TRACY Administration IMAGING chest xray: new bibasilar athelactasis, enlarged heard ASSESSMENT/PLAN: 1) cardiovascular coronary artery disease - continue statin and asa - pending nuclear stress test today hypertension - continue nifedepine and coreg (held for stress test) - b/p at goal acute diastolic congestive heart failure - 1kg weight loss noted, continue lasix 4omg daily - echo LV wnl, Mild mr, moderate tr - cardiology consulted and followed (Dr Coelho), 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 2) endo DM - hgb a1c 6.4, well controlled, continue fingersticks achs with novolog coverage and glipizide 3) pulm copd - no acute excerbation at this time, continue symbicort and albuterol neb prn - keep spo2 above 92% f/e/n - low sodium diabetic diet - replete electrolytes prn ppx - oob - scd - heparin sq dispo: pt requires telemetry observation Problem List - Problems (1) Coronary artery disease Code(s): I25.10 - ATHSCL HEART DISEASE OF [place] CORONARY ARTERY W/O ANG PCTRS (2) Diabetes mellitus Code(s): E11.9 - TYPE 2 DIABETES MELLITUS WITHOUT COMPLICATIONS Qualifiers: Diabetes mellitus type: type 2 Diabetes mellitus complication status: without complication (3) Gout Code(s): M10.9 - GOUT, UNSPECIFIED (4) HTN (hypertension) Code(s): I10 - ESSENTIAL (PRIMARY) HYPERTENSION (5) Rheumatoid arthritis Code(s): M06.9 - RHEUMATOID ARTHRITIS, UNSPECIFIED (6) Diastolic congestive heart failure Code(s): I50.30 - UNSPECIFIED DIASTOLIC (CONGESTIVE) HEART FAILURE Qualifiers: Heart failure chronicity: acute on chronic Qualified Code(s): I50.33 - Acute on chronic diastolic (congestive) heart failure (7) Bradycardia Code(s): R00.1 - BRADYCARDIA, UNSPECIFIED (8) COPD (chronic obstructive pulmonary disease) Code(s): J44.9 - CHRONIC OBSTRUCTIVE PULMONARY DISEASE, UNSPECIFIED Visit type - Emergency Visit Emergency Visit: Yes ED Registration Date: 04/29/17 Care time: The patient presented to the Emergency Department on the above date and was hospitalized for further evaluation of their emergent condition. - New Patient This patient is new to me today: No - Critical Care Critical Care patient: No - Discharge Referral Referred to [facility] Med P.C.: No
[2017-04-30] MEDS: ALLOPURINOL 100 MG TABLET (FP) PO SCH (15:28)
[2017-04-30 16:46] LABS: URINE APPEARANCE Clear; URINE BILIRUBIN Negative (NEGATIVE); URINE BLOOD Trace-intact (NEGATIVE); URINE COLOR YELLOW; URINE GLUCOSE (UA) Negative (NEGATIVE); URINE KETONE Negative (NEGATIVE); URINE LEUK ESTERASE Negative (NEGATIVE); URINE NITRITE Negative (NEGATIVE); URINE PROTEIN 1+ (NEGATIVE); URINE UROBILINOGEN 0.2 (0.2-1.0)
[2017-04-30 17:40] LABS: ANION GAP 4 (8-16); BLOOD UREA NITROGEN 29 mg/dl (7-18); CHLORIDE 102 mmol/L (98-107); CO2 32 mmol/L (22-28); CREATININE 1.5 mg/dl (0.6-1.3); GLUCOSE,RANDOM 155 mg/dl (74-106); POTASSIUM 4.5 mmol/L (3.5-5.1); SODIUM 138 mmol/L (136-145)
[2017-04-30 17:47] LABS: EPI CELLS FEW /HPF; URINE BACTERIA FEW /hpf (NEGATIVE); URINE RBC 0-2 /hpf (0-3)
--- NOTE | 2017-04-30 19:42 | PN ---
Progress Note (short form) - Note Progress Note: cc: sob S: no cp, palps, sob. had stress test today. received lasix 40 mg iv x1 Current Medications Acetaminophen (Tylenol -) 650 mg PO Q4H PRN PRN Reason: FEVER Albuterol Sulfate (Ventolin 0.083% Nebulizer Soln -) 1 amp NEB Q4H PRN PRN Reason: SHORT OF BREATH/WHEEZING Last Admin: 04/29/17 11:45 Dose: 1 amp Allopurinol (Zyloprim -) 100 mg PO DAILY [facility] Last Admin: 04/30/17 15:28 Dose: 100 mg Aspirin (Ecotrin -) 81 mg PO DAILY [facility] Last Admin: 04/30/17 13:50 Dose: 81 mg Atorvastatin Calcium (Lipitor -) 20 mg PO HS [facility] Last Admin: 04/29/17 21:33 Dose: 20 mg Budesonide/Formoterol Fumarate (Symbicort 80/4.5mcg -) 2 puff IH BID [facility] Last Admin: 04/30/17 13:50 Dose: 2 puff Carvedilol (Coreg -) 12.5 mg PO BID [facility] Furosemide (Lasix -) 40 mg PO DAILY [facility] Glipizide (Glucotrol -) 5 mg PO DAILY@0700 [facility] Last Admin: 04/30/17 06:39 Dose: Not Given Heparin Sodium (Porcine) (Heparin -) 5,000 unit SQ BID [facility] Last Admin: 04/30/17 13:49 Dose: 5,000 unit Insulin Aspart (Novolog Vial Sliding Scale -) 1 vial SQ HS [facility] PRN Reason: Protocol Last Admin: 04/29/17 21:34 Dose: 4 units Insulin Aspart (Novolog Vial Sliding Scale -) 1 vial SQ TIDAC [facility] PRN Reason: Protocol Last Admin: 04/30/17 17:23 Dose: Not Given Nifedipine (Procardia Xl -) 30 mg PO BID [facility] Last Admin: 04/30/17 13:50 Dose: 30 mg Pantoprazole Sodium (Protonix -) 20 mg PO BID [facility] Last Admin: 04/30/17 13:50 Dose: 20 mg Vital Signs - 24 hr 04/29/17 04/29/17 04/30/17 20:10 21:00 02:09 Temperature 98.5 F Pulse Rate 53 L Respiratory 18 19 19 Rate Blood Pressure 142/37 O2 Sat by Pulse 97 96 96 Oximetry (%) 04/30/17 04/30/17 04/30/17 06:00 08:22 08:40 Temperature 98.2 F 98.2 F Pulse Rate 80 78 Respiratory 20 18 20 Rate Blood Pressure 148/63 139/62 O2 Sat by Pulse 92 L 94 L Oximetry (%) 04/30/17 04/30/17 14:01 16:00 Temperature 98.8 F Pulse Rate 91 H Respiratory 20 20 Rate Blood Pressure 152/71 O2 Sat by Pulse 94 L Oximetry (%) Intake & Output 04/28/17 04/29/17 04/30/17 05/01/17 07:59 07:59 07:59 07:59 Intake Total 1075 0 Output Total 2000 750 Balance -925 -750 Weight 176 lb 8 oz nad, calm jvd to clavicle, neck supple ctab, nl effort rrr nl s1, s2 2/6 sys murmur at lsb and apex + bs soft nt nd no le e/c/c. + dp/pt no jaundice, diaphoresis aaox3 no carotid bruits CBC, BMP 04/29/17 07:15 04/30/17 17:00 EKG: sb with AV delay and wenckebach. anterior q waves. no acute ischemic changes, similar to priors. tele: sr/sb with wenckebach jayesh stress 04/2017: frequent pac's and occasional pvc's noticed during stress. moderate sized, moderate intensity reversible inferolateral perfusion defect. EF 56%. TID + 1.22. (confirmed with Dr. Anthony) echo [facility] 04/2017: nl lv/rv size/fn. mod lae. aneurysmal IAS. 1+ mr. mod tr. nl rvsp echo 05/2016: mild lvh, with additional basal septal hypertrophy. nl lv size/fn , mild-mod RV dil, nl fn, E, A reversal. A 1.1 m/s. E/E' inc, sev lae, mild sea , IAS aneuyrsmal, 1+ ar, mild-mod mr, (by my review mod mac with 1+ func ms - I measured MG 4 mmHg), mod tr, rvsp 62, , nl ivc cxr: new bibasilar atelectasis (by my review: pt with known right hemidiaphragm elevation, persistent fluid vs. scarring in fissure). cath 2002 [facility]: LVEDP 13-17. 60% plad, 95% mLAD/D2, 95% oD1, 50 % oD2, 95% pLCx, 95% mLCx, 40% om2, 80% prca, 60% drca. EF 65% 81 yo with pmhx of CAD s/p CABG 2003 [facility] (ZEE-LAD, SVG-OM, SVG-PDA/drca ) , HTN with diastolic dysfunction, severe pHTN with mild-mod RV dilation, MAC with mild functional MS, mild-mod MR, HL, AV delay/wenckebach/bradycardia, varicose veins, RA, NIDDM, mild ckd (bline cr 1.3-1.5) Gout, OA s/p b tkr who presents with acute sob. sob - 04/29 appears volume up based on jvd and cxr, will give one more dose of IV lasix tomorrow and then consider transition to po regimen. Pt cr/k sensitive to diuresis. - concerned that sob is anginal in nature. ce's neg x 3. ekg without ischemic changes. stress +, see plan below. diastolic dysfunction/severe phtn/RV dilation - 04/29 diuresis plan as above. - 04/30: s/p lasix 40 mg IV today. cr up slightly but remains within baseline. euvolemic on exam now, will transition to po lasix tomorrow. CAD s/p CABG - con't statin, nifedipine. asa, coreg - stress positive for inferolateral ischemia and + tid (high risk finding). Transfer to [facility] [place] this weekend for LHC. Will get RHC as well to assess volume status and pulmonary pressures (prior h/o severe phtn) htn - - off acei due to persistent hyperkalemia. con't coreg, con't nifedipine. Wenckebach - known AV conduction delay. Asx. OK to con't coreg 12.5 bid. - patient with functional ms and benefits from slow heart rate. no risk for progression of bradyarrhythmia from wenckebach. ckd: stable cr, con't to monitor with diuresis
[2017-04-30] MEDS: ATORVASTATIN CA 20 MG TABLET (FP) PO SCH (21:16)
[2017-04-30] MEDS: CARVEDILOL 12.5 MG TABLET (FP) PO SCH (21:16)
[2017-04-30] MEDS ORDERED: CARVEDILOL 6.25 MG TABLET (FP) PO SCH (22:00)
[2017-05-01] MEDS: INSULIN SLIDING SCALE (NOVOLOG) 1 VIAL SQ SCH ×2 (06:39→12:00)
[2017-05-01] MEDS: glipiZIDE 5 MG TABLET (FP) PO SCH (06:39)
[2017-05-01 07:44] LABS: BASO % 0.7 % (0-2.0); EOS % 2.3 % (0-4.5); HEMOGLOBIN 11.1 GM/dl (11.7-16.9); LYMPH % 22.1 % (8-40); MCH 32.7 pg (25.7-33.7); MCHC 34.8 g/dl (32.0-35.9); MEAN CELL VOLUME 94.1 fl (80-96); MEAN PLT VOLUME 7.1 fl (7.5-11.1); MONO % 4.7 % (3.8-10.2); NEUT % 70.2 % (42.8-82.8); PLATELET COUNT 160 K/MM3 (134-434); RDW 15.8 % (11.9-15.9); WHITE BLOOD COUNT 6.1 K/mm3 (4.0-10.8)
[2017-05-01 08:09] LABS: ANION GAP 2 (8-16); BLOOD UREA NITROGEN 32 mg/dl (7-18); CALCIUM 8.6 mg/dl (8.4-10.2); CHLORIDE 104 mmol/L (98-107); CO2 31 mmol/L (22-28); CREATININE 1.4 mg/dl (0.6-1.3); GLUCOSE,RANDOM 137 mg/dl (74-106); MAGNESIUM 2.1 mg/dL (1.8-2.4); PHOSPHOROUS 3.3 mg/dl (2.5-4.6); SODIUM 137 mmol/L (136-145)
--- NOTE | 2017-05-01 09:33 | DS ---
Physical Exam: SUBJECTIVE: Patient seen and examined at bedside. present. States he never had chest pain. His SOB is better. OBJECTIVE: Vital Signs Period Temp Pulse Resp BP Sys/Downs Pulse Ox Last 24 Hr 98.2 F-98.8 F 72-91 16-20 135-152/50-71 94-96 PHYSICAL EXAM GENERAL: The patient is awake, alert, and fully oriented, in no acute distress. LUNGS: CTA, no accessory muscle use HEART: Regular rate and rhythm, S1, S2 +murmur ABDOMEN: Soft, nontender, nondistended, normoactive bowel sounds, no guarding, no rebound EXTREMITIES: 2+ pulses, warm, well-perfused, no edema. NEUROLOGICAL: Cranial nerves II through XII grossly intact. Normal speech, gait not observed. LABS Laboratory Results - last 24 hr 04/30/17 04/30/17 04/30/17 13:46 16:20 17:00 WBC RBC Hgb Hct MCV MCH MCHC RDW Plt Count MPV Neutrophils % Lymphocytes % Monocytes % Eosinophils % Basophils % Sodium 138 Potassium 4.5 Chloride 102 Carbon Dioxide 32 H Anion Gap 4 L BUN 29 H Creatinine 1.5 H D POC Glucometer 250 Random Glucose 155 H Calcium 9.0 Phosphorus Magnesium Urine Color Yellow Urine Appearance Clear Urine pH 5.0 Ur Specific [place] 1.015 Urine Protein 1+ H Urine Glucose (UA) Negative Urine Ketones Negative Urine Blood Trace-intact H Urine Nitrite Negative Urine Bilirubin Negative Urine Urobilinogen 0.2 Ur Leukocyte Esterase Negative Urine RBC 0-2 Urine WBC 1-2 Ur Epithelial Cells Few Urine Bacteria Few 04/30/17 05/01/17 05/01/17 20:46 06:32 07:30 WBC 6.1 RBC 3.40 L Hgb 11.1 L Hct 32.0 L MCV 94.1 MCH 32.7 MCHC 34.8 RDW 15.8 Plt Count 160 MPV 7.1 L D Neutrophils % 70.2 Lymphocytes % 22.1 Monocytes % 4.7 Eosinophils % 2.3 Basophils % 0.7 Sodium Potassium Chloride Carbon Dioxide Anion Gap BUN Creatinine POC Glucometer 176 140 Random Glucose Calcium Phosphorus Magnesium Urine Color Urine Appearance Urine pH Ur Specific [place] Urine Protein Urine Glucose (UA) Urine Ketones Urine Blood Urine Nitrite Urine Bilirubin Urine Urobilinogen Ur Leukocyte Esterase Urine RBC Urine WBC Ur Epithelial Cells Urine Bacteria 05/01/17 07:30 WBC RBC Hgb Hct MCV MCH MCHC RDW Plt Count MPV Neutrophils % Lymphocytes % Monocytes % Eosinophils % Basophils % Sodium 137 Potassium 4.0 Chloride 104 Carbon Dioxide 31 H Anion Gap 2 L BUN 32 H Creatinine 1.4 H POC Glucometer Random Glucose 137 H Calcium 8.6 Phosphorus 3.3 Magnesium 2.1 Urine Color Urine Appearance Urine pH Ur Specific [place] Urine Protein Urine Glucose (UA) Urine Ketones Urine Blood Urine Nitrite Urine Bilirubin Urine Urobilinogen Ur Leukocyte Esterase Urine RBC Urine WBC Ur Epithelial Cells Urine Bacteria HOSPITAL COURSE: Date of Admission:04/29/17 Date of Discharge: 05/01/17 Pre hospital course Patient is a 81 y/o male with a past medical history of HTN, CAD s/p CABG (2003 , [facility]), diastolic heart failure, severe pulmonary HTN, COPD, DM, and gout. Patient reports one month of progressive shortness of breath and dyspnea upon exertion. He reports running errands yesterday morning and felt increasingly dyspneic soon after. Patient denies any chest pain. Yesterday evening, while in the shower, patient felt his shortness of breath worsened, patient's called EMS and was given supplemental O2 with complete resolution of symptoms. ER course was notable for: (1) bnp 642 (2) ekg sinus rhythm with 2nd degree av block mobitz I (unchanged from prior ekg 07/01) (3)cxr new bibasilar athelectasis Subsequent hospital course Chest pain Shortness of breath Coronary artery disease --volume v. anginal --initially treated with IV lasix, transitioned to PO --troponins neg x 3 --ECG without ischemic changes --04/29 Echo: LV normal; RV normal; LAE; mild MR; moderate TR --04/30 Nuclear stress: moderate inferolateral ischemia, EF 56%; transfer to [facility] weekend for RHC/LHC --continue ASA, Lipitor, nifedipine, carvedilol Diastolic dysfunction Severe pulmonary hypertension --diuresis as above Hypertension --off ACEI due to persistent hyperkalemia; continue carvedilol, nifedipine Rishabh --known AV conduction delay, asymptomatic --per cardiology OK to continue beta kellie, low risk for progression to bradyarrhythmia from rishabh CKD --Cr stable --continue to monitor with diuresis DVT prophylaxis: subq heparin Minutes to complete discharge: 35 Discharge Summary Reason For Visit: DYSPNEA Current Active Problems Bradycardia (Acute) COPD (chronic obstructive pulmonary disease) (Acute) Coronary artery disease (Acute) Diastolic congestive heart failure (Acute) Dyspnea (Acute) Condition: Stable - Instructions Referrals: Shivani Coelho MD [Staff Physician] - - Home Medications Comprehensive Discharge Medication List: Ambulatory Orders Methotrexate Sodium [Methotrexate] 0 mg PO ASDIR tablet 06/27/14 Glipizide 5 mg PO DAILY 07/07/16 Budesonide/Formeterol Fumarate [SYMBICORT 80/4.5mcg -] 2 puff IH BID #1 inhaler 07/08/16 Carvedilol [Coreg -] 6.25 mg PO BID #60 tablet 07/08/16 Nifedipine ER [Procardia XL -] 30 mg PO BID #60 tab 07/08/16 Torsemide [Demadex -] 10 mg PO DAILY #30 tablet 07/08/16 Nifedipine [Adalat Cc] 30 mg PO BID 10/06/16 Torsemide 5 mg PO QOD tablet 10/06/16 This patient is new to me today: Yes Date on this admission: 05/01/17 Emergency Visit: Yes ED Registration Date: 04/29/17 Care time: The patient presented to the Emergency Department on the above date and was hospitalized for further evaluation of their emergent condition. Critical Care patient: No - Discharge Referral Referred to [facility] Med P.C.: No
[2017-05-01] MEDS ORDERED: PT OWN MED DRAWER 7, Y5N ONE (09:38)
[2017-05-01] MEDS: BUDESONIDE/FORMETEROL FUMARATE 80/4.5 mcg INHALER IH SCH (09:47)
[2017-05-01] MEDS: HEPARIN NA (PORCINE) 5,000 UNITS/ML 1ML VIAL SQ SCH (09:47)
[2017-05-01] MEDS: CARVEDILOL 12.5 MG TABLET (FP) PO SCH (09:48)
[2017-05-01] MEDS: NIFEdipine E.R. 30 MG TABLET (FP) PO SCH (09:48)
[2017-05-01] MEDS: ALLOPURINOL 100 MG TABLET (FP) PO SCH (09:48)
[2017-05-01] MEDS: ASPIRIN COATED 81 MG TABLET.EC PO SCH (09:48)
[2017-05-01] MEDS: PANTOPRAZOLE 20 MG TABLET (FP) PO SCH (09:48)
[2017-05-01] MEDS ORDERED: FUROSEMIDE 40 MG TABLET (FP) PO SCH (10:00)
--- NOTE | 2017-05-01 13:45 | PN ---
Progress Note (short form) - Note Progress Note: Progress Note: cc: sob S: no cp, palps, sob, dizzy Current Medications Generic Name Dose Route Start Last Admin Trade Name Freq PRN Reason Stop Dose Admin Acetaminophen 650 mg 04/29/17 09:20 Tylenol - PO Q4H PRN FEVER Albuterol Sulfate 1 amp 04/29/17 09:19 04/29/17 11:45 Ventolin 0.083% Nebulizer Soln - NEB 1 amp Q4H PRN Administration SHORT OF BREATH/WHEEZING Allopurinol 100 mg 04/30/17 14:45 05/01/17 09:48 Zyloprim - PO 100 mg DAILY TRACY Administration Aspirin 81 mg 04/29/17 14:45 05/01/17 09:48 Ecotrin - PO 81 mg DAILY TRACY Administration Atorvastatin Calcium 20 mg 04/29/17 22:00 04/30/17 21:16 Lipitor - PO 20 mg HS TRACY Administration Budesonide/Formoterol Fumarate 2 puff 04/29/17 10:00 05/01/17 09:47 Symbicort 80/4.5mcg - IH 2 puff BID TRACY Administration Carvedilol 12.5 mg 04/30/17 22:00 05/01/17 09:48 Coreg - PO 12.5 mg BID TRACY Administration Furosemide 40 mg 05/01/17 10:00 05/01/17 09:48 Lasix - PO 40 mg DAILY TRACY Administration Glipizide 5 mg 04/29/17 10:00 05/01/17 06:39 Glucotrol - PO 5 mg DAILY@0700 TRACY Administration Heparin Sodium (Porcine) 5,000 unit 04/29/17 10:00 05/01/17 09:47 Heparin - SQ 5,000 unit BID TRACY Administration Insulin Aspart 1 vial 04/29/17 22:00 04/30/17 21:17 Novolog Vial Sliding Scale - SQ Not Given HS TRACY Protocol Insulin Aspart 1 vial 04/29/17 07:00 05/01/17 06:39 Novolog Vial Sliding Scale - SQ Not Given TIDAC [facility] Protocol Nifedipine 30 mg 04/29/17 10:00 05/01/17 09:48 Procardia Xl - PO 30 mg BID TRACY Administration Pantoprazole Sodium 20 mg 04/29/17 10:00 05/01/17 09:48 Protonix - PO 20 mg BID TRACY Administration Vital Signs Period Temp Pulse Resp BP Sys/Downs Pulse Ox Last 24 Hr 98.2 F-99.1 F 72-91 16-20 130-152/50-71 90-96 nad, calm no jvd ctab, nl effort rrr nl s1, s2 2/6 sys murmur at lsb and apex + bs soft nt nd no le e/c/c. no jaundice, diaphoresis aaox3 CBC, BMP 05/01/17 07:30 05/01/17 07:30 EKG: sb with AV delay and wenckebach. anterior q waves. no acute ischemic changes, similar to priors. tele: sr/sb with wenckebach jayesh stress 04/2017: frequent pac's and occasional pvc's noticed during stress. moderate sized, moderate intensity reversible inferolateral perfusion defect. EF 56%. TID + 1.22. (confirmed with Dr. Anthony) echo SJR 04/2017: nl lv/rv size/fn. mod lae. aneurysmal IAS. 1+ mr. mod tr. nl rvsp echo 05/2016: mild lvh, with additional basal septal hypertrophy. nl lv size/fn , mild-mod RV dil, nl fn, E, A reversal. A 1.1 m/s. E/E' inc, sev lae, mild sea , IAS aneuyrsmal, 1+ ar, mild-mod mr, (by my review mod mac with 1+ func ms - I measured MG 4 mmHg), mod tr, rvsp 62, , nl ivc cxr: new bibasilar atelectasis (by my review: pt with known right hemidiaphragm elevation, persistent fluid vs. scarring in fissure). cath 2002 [facility]: LVEDP 13-17. 60% plad, 95% mLAD/D2, 95% oD1, 50 % oD2, 95% pLCx, 95% mLCx, 40% om2, 80% prca, 60% drca. EF 65% a/p: 81 yo with pmhx of CAD s/p CABG 2003 [facility] (ZEE-LAD, SVG-OM, SVG-PDA/ drca) , HTN with diastolic dysfunction, severe pHTN with mild-mod RV dilation, MAC with mild functional MS, mild-mod MR, HL, AV delay/wenckebach/bradycardia, varicose veins, RA, NIDDM, mild ckd (bline cr 1.3-1.5) Gout, OA s/p b tkr who presents with acute sob. sob - 04/29 appears volume up based on jvd and cxr, will give one more dose of IV lasix tomorrow and then consider transition to po regimen. Pt cr/k sensitive to diuresis. - concerned that sob is anginal in nature. ce's neg x 3. ekg without ischemic changes. stress +, see plan below. acute diastolic dysfunction/severe phtn/RV dilation - 04/30: s/p lasix 40 mg IV today. cr up slightly but remains within baseline. euvolemic on exam now, will transition to po lasix tomorrow. -05/01: vol stable, cont po lasix CAD s/p CABG - con't statin, nifedipine. asa, coreg - stress positive for inferolateral ischemia and + tid (high risk finding). [place] [facility] [place]. Will get RHC as well to assess volume status and pulmonary pressures (prior h/o severe phtn) htn - off acei due to persistent hyperkalemia. con't coreg, con't nifedipine. Wenckebach - known AV conduction delay. Asx. OK to con't coreg 12.5 bid. - patient with functional ms and benefits from slow heart rate. no risk for progression of bradyarrhythmia from wenckebach. ckd: stable cr
[2017-05-01 19:09] VITALS: BP 128/58; PULSE 70; TEMP 99.4
[2017-05-01] MEDS ORDERED: HEPARIN NA (PORCINE) 5,000 UNITS/ML 1ML VIAL SQ SCH (22:00)
== END 2017-05-01 19:45 | disposition short-term general hospital (02) | DRG 302 ==
LOC: FER 22:07 → OBSVTOIN 04-29 02:09 → FM/S 04-29 02:09 → INTOOBSV 04-29 02:31 → UNDOADMOB 04-29 02:31 → FM/S 04-29 02:31
PROVIDERS: ADMIT Internal Medicine; ATTEND Nurse Practitioner Acute Care
DX: I25.10 Atherosclerotic heart disease of native coronary artery without angina pectoris (principal); I50.33 Acute on chronic diastolic (congestive) heart failure; I13.0 Hypertensive heart and chronic kidney disease with heart failure and stage 1 through stage 4 chronic kidney disease, or unspecified chronic kidney disease; J98.11 Atelectasis; I27.20 Pulmonary hypertension, unspecified; I44.1 Atrioventricular block, second degree; R00.1 Bradycardia, unspecified; M10.9 Gout, unspecified; M06.9 Rheumatoid arthritis, unspecified; E11.22 Type 2 diabetes mellitus with diabetic chronic kidney disease; N18.9 Chronic kidney disease, unspecified; I34.0 Nonrheumatic mitral (valve) insufficiency; Z95.1 Presence of aortocoronary bypass graft; J44.9 Chronic obstructive pulmonary disease, unspecified; Z96.653 Presence of artificial knee joint, bilateral
CPT/HCPCS: 36415; 71045-TC-FY; 78452-TC; 80048; 80053; 81003; 81015; 82550; 82962; 83036; 83735; 83880; 84100; 84436; 84443; 84484; 85025; 85610; 93017; 93306-TC; 94640; 97116-GP; 97161-GP; 99285-25; A9502; J1644; J2785

== ENCOUNTER 2018-01-31 14:33 | Observation (INO) | payer OTHER ==
--- NOTE | 2018-01-31 14:47 | PDOC ---
History of Present Illness - General Chief Complaint: Chest Pain Stated Complaint: CHEST PAIN Time Seen by Provider: 01/31/18 14:45 History Source: Patient Exam Limitations: No Limitations - History of Present Illness Initial Comments: 01/31/18 15:05 82 year old man with history of CABG 2003, DM, CKD, CAD, COPD, gout, stents placed in April and May 2017. The patient presents with 1 month of diffuse chest heaviness that worsened for 1 day. He complained of some rhinorrhea for the past 1 week and thought his chest heaviness was due to congestion or cold/ flu symptoms. He went to PCP this AM as the chest heaviness felt worse and was concerning for ACS as it felt somewhat similar to the chest pain he had prior to his stent placements. He was given sublingual nitro which he did not take. He denies any chest pain, but describes it more as heaviness, nonradiating to the back, arms or neck. Denies any recent travel, denies any headache or loss of consciousness. denies N/V/D/C. He has no other complaints at bedside. Past History - Past Medical History Allergies/Adverse Reactions: Allergies Allergy/AdvReac Type Severity Reaction Status Date / Time No Known Drug Allergies Allergy Verified 01/31/18 14:34 Home Medications: Ambulatory Orders Allopurinol [Zyloprim -] 100 mg PO DAILY tablet 05/01/17 Aspirin Coated [Ecotrin -] 81 mg PO DAILY tablet.ec 05/01/17 Atorvastatin Ca [Lipitor] 20 mg PO HS tablet 05/01/17 Furosemide [Lasix -] 40 mg PO DAILY tablet 05/01/17 Nifedipine ER [Procardia XL -] 30 mg PO BID tab.er.24 05/01/17 Carvedilol [Coreg -] 6.25 mg PO BID 01/31/18 Anemia: No Asthma: No Cancer: No Cardiac Disorders: Yes (s/p cabg 2003) CVA: No COPD: No CHF: No Dementia: No Diabetes: Yes GI Disorders: No Disorders: No HTN: Yes Hypercholesterolemia: Yes Kidney Stones: Yes Liver Disease: No Seizures: No Thyroid Disease: No - Surgical History Abdominal Surgery: No Appendectomy: No Cardiac Surgery: Yes (CABG X 3-LAST STRESS TEST 1 MONTH AGO) Cholecystectomy: No Lung Surgery: No Neurologic Surgery: No Orthopedic Surgery: Yes (RIGHT KNEE REPLACEMENT 2011) - Suicide/Smoking/Psychosocial Hx Smoking Status: No Smoking History: Never smoked Have you smoked in the past 12 months: No Number of Cigarettes Smoked Daily: 0 Hx Alcohol Use: No Drug/Substance Use Hx: No Substance Use Type: None Hx Substance Use Treatment: No Review of Systems - Review of Systems Able to Perform ROS?: Yes Is the patient limited [place]an proficient: No Constitutional: No: Chills, Diaphoresis, Fever HEENTM: Yes: Nose Congestion Respiratory: No: Cough, Orthopnea, Shortness of Breath Cardiac (ROS): Yes: See HPI, Chest Tightness. No: Chest Pain, Palpitations, Syncope ABD/GI: No: Constipated, Diarrhea, Nausea, Vomiting : No: Burning, Dysuria, Hematuria Musculoskeletal: No: Back Pain, Muscle Weakness Integumentary: No: Sweating Neurological: No: Headache, Numbness, Tingling Endocrine: No: Excessive Sweating *Physical Exam - Vital Signs Last Vital Signs Temp Pulse Resp BP Pulse Ox 97.7 F 87 18 162/81 94 L 01/31/18 14:34 01/31/18 14:34 01/31/18 14:34 01/31/18 14:34 01/31/18 14:34 - Physical Exam Comments: 01/31/18 16:23 GENERAL: Awake, alert, and fully oriented, in no acute distress HEAD: No signs of trauma, normocephalic, atraumatic EYES: PERRLA, EOMI, sclera anicteric, conjunctiva clear ENT: oropharynx clear without exudates. Moist mucosa NECK: Normal ROM, supple LUNGS: No distress, speaks full sentences, clear to auscultation bilaterally HEART: irregular rhythm, normal S1 and S2, harsh holosystolic murmur, no rubs or gallops, peripheral pulses normal and equal bilaterally. ABDOMEN: Soft, nontender. No guarding, no rebound. No masses EXTREMITIES : Normal inspection, Normal range of motion, no edema. No clubbing or cyanosis. NEUROLOGICAL: Cranial nerves II through XII grossly intact. Normal speech, normal gait, no focal sensorimotor deficits SKIN: Warm, Dry, normal turgor, no rashes or lesions noted Moderate Sedation - Procedure Monitoring Vital Signs: Procedure Monitoring Vital Signs Temperature 97.7 F 01/31/18 14:34 Pulse Rate 87 01/31/18 14:34 Respiratory Rate 18 01/31/18 14:34 Blood Pressure 162/81 01/31/18 14:34 O2 Sat by Pulse Oximetry (%) 94 L 01/31/18 14:34 ED Treatment Course - LABORATORY CBC & Chemistry Diagram: 01/31/18 14:46 01/31/18 14:46 Medical Decision Making - Medical Decision Making 01/31/18 16:24 82 year old man with history of CABG 2003, DM, CKD, CAD, COPD, gout, stents placed in April and May. The patient presents with 1 month of diffuse chest heaviness that worsened for 1 day. He complained of some rhinorrhea for the past 1 week and thought his chest heaviness was due to congestion or cold/flu symptoms. He went to PCP this AM as the chest heaviness felt worse and was concerning for ACS as it felt somewhat similar to the chest pain he had prior to his stent placements. He was given sublingual nitro which he did not take. He denies any chest pain, but describes it more as heaviness, nonradiating to the back, arms or neck. Denies any recent travel, denies any headache or loss of consciousness. denies N/V/D/C. He has no other complaints at bedside. DDX including but not limited to: ACS vs arrythmia vs COPD exacerbation vs viral URI vs PNA W/U: - cbc, cmp, trop - ekg - cxr Scores: HEART 5 ED Course: cbc, cmp, trop within normal EKbpm, sinus rhythm with second degree AV block ,QTc 411, no significant ST elevations, unchanged from previous. CXR: some L sided atelectasis, w/o infiltrate , no siginifcant changes from prior 01/31/18 16:33 Will admit for tele obs considering heart score, symptoms and strong cardiac history. Pending admitting team call back 01/31/18 16:50 Patient admitted to medicine for further workup and evaluation. *DC/Admit/Observation/Transfer Diagnosis at time of Disposition: Chest pain - Discharge Dispostion Disposition: HOME Condition at time of disposition: Stable Decision to Admit order: Yes - Referrals Referrals: Fritz Hernandez MD [Primary Care Provider] - - Patient Instructions - Post Discharge Activity
[2018-01-31 15:20] LABS: BASO % 0.5 % (0-2.0); EOS % 2.7 % (0-4.5); HEMOGLOBIN 11.7 GM/dl (11.7-16.9); RDW 16.1 % (11.9-15.9)
[2018-01-31 15:23] LABS: ALK PHOS 44 U/L (32-92); ANION GAP 7 MMOL/L (8-16); BILIRUBIN,TOTAL 0.3 mg/dl (0.2-1.0); BLOOD UREA NITROGEN 53 mg/dl (7-18); CALCIUM 9.5 mg/dl (8.4-10.2); CHLORIDE 104 mmol/L (98-107); CO2 28 mmol/L (22-28); CREATININE 1.4 mg/dl (0.6-1.3); GLUCOSE,RANDOM 183 mg/dl (74-106); HEMATOCRIT 35.8 % (35.4-49); LYMPH % 13.3 % (8-40); MCH 32.4 pg (25.7-33.7); MCHC 32.8 g/dl (32.0-35.9); MEAN CELL VOLUME 98.9 fl (80-96); MONO % 6.3 % (3.8-10.2); NEUT % 77.2 % (42.8-82.8); PLATELET COUNT 126 K/MM3 (134-434); POTASSIUM 4.4 mmol/L (3.5-5.1); RBC 3.62 M/mm3 (4.00-5.60); SGOT/AST 18 U/L (10-42); SGPT/ALT 18 U/L (10-40); SODIUM 139 mmol/L (136-145); TOT PROT 6.7 g/dl (6.4-8.3); WHITE BLOOD COUNT 6.2 K/mm3 (4.0-10.8)
--- NOTE | 2018-01-31 16:51 | PDOC ---
Attending Attestation - Resident Resident Name: Antonia Holloway - ED Attending Attestation I have performed the following: I have examined & evaluated the patient, The case was reviewed & discussed with the resident, I agree w/resident's findings & plan, Exceptions are as noted - HPI HPI: 01/31/18 16:47 82 year old man with history of CABG 2003, DM, CKD, CAD, COPD, gout, stents placed in April and May 2017. The patient presents with 1 month of diffuse chest heaviness that worsened for 1 day. ROS: A complete review of 10 out of 10 review of systems is taken and is negative apart from what is previously mentioned below and in the HPI. - Physicial Exam PE: 01/31/18 16:47 Vitals: Triage Vital signs reviewed General Appearance: no acute distress, well nourished well developed, Head: Atraumatic, Cardiac: Regular rate and rhythym, no murmurs, no rubs, no gallops, Lungs: Clear to auscultation bilateral, good air movement bilaterally, Abdomen: Soft, non distended, normal bowel sounds, non tender to palpation Extremities: Full range of motion to all extremities, no cyanosis, clubbing, or edema Skin: Warm and dry, no rashes or lesions, no rash, no petechiae Psych: normal mood, normal affect - Medical Decision Making 01/31/18 16:49 Heart score 4 negative troponin and unchanged EKG with known mobitz HB. Given 1 month of chest discomfort with normal pulmonary examination we will observe overnight on telemetry with cardiology and pulmonary consultation Heart Score/ECG Review - History History: Slightly suspicious - Electrocardiogram EKG: Normal - Risk Factors Risk Factors Heart Score: Yes Hx Hypercholesterolemia, Yes Hx Hypertension Based on the list above the patient has:: >/=3 risk factors or Hx atherosclerotic disease - Troponin Troponin: </= normal limit - ECG Impressions Comment:: 01/31/18 16:51 Sinus rhythm Mobitz type I with PVCs. No ST elevations or T-wave inversions. Interpreted by me.
--- NOTE | 2018-01-31 18:52 | CON.CARD ---
Consult Consult Specialty:: Cardiology Referred by:: Mary Reason for Consultation:: chest discomfort - History of Present Illness Chief Complaint: chest discomfort History of Present Illness: 82M h/o CABG 2004, DM, CKD, CAD, COPD, s/p stents April and May 2017 p/w one month of diffuse chest heaviness for one day, also had nasal congestion, but chest tightness was similar to when he got stents this year. Went to PCP office this morning and was sent to ER for chest pain was given SLNG but did not take. Feels like chest heaviness. no radiation, no dyspnea. 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 Home Medications - Allergies Allergies/Adverse Reactions: Allergies Allergy/AdvReac Type Severity Reaction Status Date / Time No Known Drug Allergies Allergy Verified 01/31/18 14:34 - Home Medications Home Medications: Ambulatory Orders Allopurinol [Zyloprim -] 100 mg PO DAILY tablet 05/01/17 Aspirin Coated [Ecotrin -] 81 mg PO DAILY tablet.ec 05/01/17 Atorvastatin Ca [Lipitor] 20 mg PO HS tablet 05/01/17 Furosemide [Lasix -] 40 mg PO DAILY tablet 05/01/17 Nifedipine ER [Procardia XL -] 30 mg PO BID tab.er.24 05/01/17 Carvedilol [Coreg -] 6.25 mg PO BID 01/31/18 Clopidogrel Bisulfate [Plavix] 75 mg PO DAILY 01/31/18 Methotrexate [Mexate -] 0 mg PO Q7D 01/31/18 Omeprazole 20 mg PO BID 01/31/18 Sitagliptin Phosphate [Januvia] 50 mg PO DAILY 01/31/18 Family Disease History - Family Disease History Family History: Unremarkable Review of Systems - Review of Systems Constitutional: reports: No Symptoms Eyes: reports: No Symptoms HENT: reports: No Symptoms Neck: reports: No Symptoms Cardiovascular: reports: No Symptoms Respiratory: reports: No Symptoms Gastrointestinal: reports: No Symptoms Genitourinary: reports: No Symptoms Musculoskeletal: reports: No Symptoms Integumentary: reports: No Symptoms Neurological: reports: No Symptoms Endocrine: reports: No Symptoms Hematology/Lymphatic: reports: No Symptoms Psychiatric: reports: No Symptoms Vital Signs: Vital Signs Temperature 97.7 F 01/31/18 14:34 Pulse Rate 87 01/31/18 14:34 Respiratory Rate 18 01/31/18 14:34 Blood Pressure 162/81 01/31/18 14:34 O2 Sat by Pulse Oximetry (%) 94 L 01/31/18 14:34 Constitutional: Yes: Well Nourished, No Distress, Calm Eyes: Yes: Conjunctiva Clear, EOM Intact HENT: Yes: Atraumatic, Normocephalic Neck: Yes: Supple, Trachea Midline Respiratory: Yes: Regular, CTA Bilaterally Gastrointestinal: Yes: Normal Bowel Sounds, Soft Cardiovascular: Yes: Regular Rate and Rhythm JVD: No Carotid Bruit: No Heart Sounds: Yes: S1, S2 Musculoskeletal: No: Back Pain Extremities: No: Cold Edema: No Edema: LLE: 2+, RLE: 2+ Peripheral Pulses: 2+ Left Carotid, 2+ Right Carotid, 2+ Left Doralis Pedis, 2+ Right Dorsalis Pedis Integumentary: Yes: Body Piercing, Bruising Neurological: Yes: Alert, Oriented Psychiatric: Yes: Alert, Oriented - Other Data Labs, Other Data: CBC, BMP 01/31/18 14:46 01/31/18 14:46 Troponin, BNP 01/31/18 14:46 Troponin I 0.04 D Troponin, BNP 01/31/18 14:46 Troponin I 0.04 D Assessment/Plan EKG: sb with AV delay and wenckebach. anterior q waves. no acute ischemic changes, similar to priors. tele: sr/sb with wenckebach jayesh stress 04/2017: frequent pac's and occasional pvc's noticed during stress. moderate sized, moderate intensity reversible inferolateral perfusion defect. EF 56%. TID + 1.22. (confirmed with Dr. Anthony) echo SJR 04/2017: nl lv/rv size/fn. mod lae. aneurysmal IAS. 1+ mr. mod tr. nl rvsp echo 05/2016: mild lvh, with additional basal septal hypertrophy. nl lv size/fn , mild-mod RV dil, nl fn, E, A reversal. A 1.1 m/s. E/E' inc, sev lae, mild sea , IAS aneuyrsmal, 1+ ar, mild-mod mr, (by my review mod mac with 1+ func ms - I measured MG 4 mmHg), mod tr, rvsp 62, , nl ivc cxr: new bibasilar atelectasis (by my review: pt with known right hemidiaphragm elevation, persistent fluid vs. scarring in fissure). cath 2002 [facility]: LVEDP 13-17. 60% plad, 95% mLAD/D2, 95% oD1, 50 % oD2, 95% pLCx, 95% mLCx, 40% om2, 80% prca, 60% drca. EF 65% a/p: 82 yo with pmhx of CAD s/p CABG 2003 [facility] (ZEE-LAD, SVG-OM, SVG-PDA/ drca) , HTN with diastolic dysfunction, severe pHTN with mild-mod RV dilation, MAC with mild functional MS, mild-mod MR, HL, AV delay/wenckebach/bradycardia, varicose veins, RA, NIDDM, mild ckd (bline cr 1.3-1.5) Gout, OA s/p b tkr who presents with chest discomfort chest discomfort - trop neg x 1 - now no chest discomofort - pain not typical for prior episode of getting stents, however will rule out for CO given significant family hs - monitor on tele - will check clinic records for more recent testing chronic diastolic dysfunction/severe phtn/RV dilation - appears euvolemic - continue home lasix CAD s/p CABG - con't statin, nifedipine. asa, coreg - s/p cath 04/2017 after pos stress htn - off acei due to persistent hyperkalemia. con't coreg, con't nifedipine. Wenckebach - known AV conduction delay. stable on coreg, continue - patient with functional ms and benefits from slow heart rate. no risk for progression of bradyarrhythmia from wenckebach. ckd: - stable cr
[2018-01-31] MEDS: NIFEdipine E.R. 30 MG TABLET (FP) PO SCH (21:07)
[2018-01-31] MEDS: PANTOPRAZOLE 20 MG TABLET (FP) PO SCH (21:08)
[2018-01-31 21:39] VITALS: BMI 28.3
[2018-01-31] MEDS ORDERED: ATORVASTATIN CA 20 MG TABLET (FP) PO SCH (22:00)
[2018-01-31] MEDS ORDERED: PATIENT'S OWN MEDICATION (NON-FORMULARY) (Omeprazole [Omeprazole] 20 MG) PO SCH (22:00)
--- NOTE | 2018-01-31 22:36 | HP ---
CHIEF COMPLAINT: PCP: HISTORY OF PRESENT ILLNESS: ER course was notable for: (1) (2) (3) Recent Travel: PAST MEDICAL HISTORY: PAST SURGICAL HISTORY: Social History: Smoking: Alcohol: Drugs: Family History: Allergies No Known Drug Allergies Allergy (Verified 01/31/18 14:34) HOME MEDICATIONS: Home Medications Medication Instructions Recorded Allopurinol [Zyloprim -] 100 mg PO DAILY tablet 05/01/17 Aspirin Coated [Ecotrin -] 81 mg PO DAILY tablet.ec 05/01/17 Atorvastatin Ca [Lipitor] 20 mg PO HS tablet 05/01/17 Furosemide [Lasix -] 40 mg PO DAILY tablet 05/01/17 Nifedipine ER [Procardia XL -] 30 mg PO BID tab.er.24 05/01/17 Carvedilol [Coreg -] 6.25 mg PO BID 01/31/18 Clopidogrel Bisulfate [Plavix] 75 mg PO DAILY 01/31/18 Methotrexate [Mexate -] 0 mg PO Q7D 01/31/18 Omeprazole 20 mg PO BID 01/31/18 Sitagliptin Phosphate [Januvia] 50 mg PO DAILY 01/31/18 REVIEW OF SYSTEMS CONSTITUTIONAL: Absent: fever, chills, diaphoresis, generalized weakness, malaise, loss of appetite, weight change HEENT: Absent: rhinorrhea, nasal congestion, throat pain, throat swelling, difficulty swallowing, mouth swelling, ear pain, eye pain, visual changes CARDIOVASCULAR: Absent: chest pain, syncope, palpitations, irregular heart rate, lightheadedness , peripheral edema RESPIRATORY: Absent: cough, shortness of breath, dyspnea with exertion, orthopnea, wheezing, stridor, hemoptysis GASTROINTESTINAL: Absent: abdominal pain, abdominal distension, nausea, vomiting, diarrhea, constipation, melena, hematochezia GENITOURINARY: Absent: dysuria, frequency, urgency, hesitancy, hematuria, flank pain, genital pain MUSCULOSKELETAL: Absent: myalgia, arthralgia, joint swelling, back pain, neck pain SKIN: Absent: rash, itching, pallor HEMATOLOGIC/IMMUNOLOGIC: Absent: easy bleeding, easy bruising, lymphadenopathy, frequent infections ENDOCRINE: Absent: unexplained weight gain, unexplained weight loss, heat intolerance, cold intolerance NEUROLOGIC: Absent: headache, focal weakness or paresthesias, dizziness, unsteady gait, seizure, mental status changes, bladder or bowel incontinence PSYCHIATRIC: Absent: anxiety, depression, suicidal or homicidal ideation, hallucinations. PHYSICAL EXAMINATION Vital Signs - 24 hr 01/31/18 01/31/18 01/31/18 14:34 18:48 21:00 Temperature 97.7 F 98.4 F Pulse Rate 87 Pulse Rate [ 72 Apical] Respiratory 18 18 Rate Blood Pressure 162/81 Blood Pressure 146/77 [Left Arm] O2 Sat by Pulse 94 L 95 95 Oximetry (%) 01/31/18 01/31/18 21:03 21:32 Temperature 97.5 F L 97.5 F L Pulse Rate 58 L 58 L Pulse Rate [ Apical] Respiratory 18 18 Rate Blood Pressure 170/56 L 170/56 L Blood Pressure [Left Arm] O2 Sat by Pulse 95 Oximetry (%) GENERAL: Awake, alert, and fully oriented, in no acute distress. HEAD: Normal with no signs of trauma. EYES: Pupils equal, round and reactive to light, extraocular movements intact, sclera anicteric, conjunctiva clear. No lid lag. EARS, NOSE, THROAT: Ears normal, nares patent, oropharynx clear without exudates. Moist mucous membranes. NECK: Normal range of motion, supple without lymphadenopathy, JVD, or masses. LUNGS: Breath sounds equal, clear to auscultation bilaterally. No wheezes, and no crackles. No accessory muscle use. HEART: Regular rate and rhythm, normal S1 and S2 without murmur, rub or gallop. ABDOMEN: Soft, nontender, not distended, normoactive bowel sounds, no guarding, no rebound, no masses. No hepatomegaly or splenomegaly. MUSCULOSKELETAL: Normal range of motion at all joints. No bony deformities or tenderness. No CVA tenderness. UPPER EXTREMITIES: 2+ pulses, warm, well-perfused. No cyanosis. No clubbing. No peripheral edema. LOWER EXTREMITIES: 2+ pulses, warm, well-perfused. No calf tenderness. No peripheral edema. NEUROLOGICAL: Cranial nerves II-XII intact. Normal speech. Normal gait. PSYCHIATRIC: Cooperative. Good eye contact. Appropriate mood and affect. SKIN: Warm, dry, normal turgor, no rashes or lesions noted, normal capillary refill. Laboratory Results - last 24 hr 01/31/18 01/31/18 01/31/18 14:46 14:46 14:46 WBC 6.2 RBC 3.62 L Hgb 11.7 Hct 35.8 MCV 98.9 H MCH 32.4 MCHC 32.8 RDW 16.1 H Plt Count 126 L MPV 9.0 Absolute Neuts (auto) 4.8 Neutrophils % 77.2 D Lymphocytes % 13.3 D Monocytes % 6.3 Eosinophils % 2.7 Basophils % 0.5 Sodium 139 Potassium 4.4 Chloride 104 Carbon Dioxide 28 Anion Gap 7 L BUN 53 H Creatinine 1.4 H Creat Clearance w eGFR 48.40 Random Glucose 183 H D Calcium 9.5 Total Bilirubin 0.3 AST 18 ALT 18 Alkaline Phosphatase 44 Troponin I 0.04 D Total Protein 6.7 Albumin 4.0 ASSESSMENT/PLAN:
[2018-01-31] MEDS ORDERED: NITROGLYCERIN SUBLINGUAL 1/150 0.4 MG TAB SL PRN (22:46)
--- NOTE | 2018-02-01 00:52 | HP ---
CHIEF COMPLAINT: Chest pain PCP: Fritz Hernandez MD HISTORY OF PRESENT ILLNESS: 82 year old male with a PMH significant for CAD s/p CABG and recent stents of April and May of this year, DM, CKD, COPD, and gout presented to the ED at the request of his PCP for 1 month of worsening chest pain. He had an appointment with his PCP today because he was also having nasal congestion and figured his symptoms could be related to respiratory issues. His PCP requested he present to the ED given his extensive cardiac history. Denies fevers, dizziness, syncope, seizures, SOB, n/v/d. Upon admission to the ED, VSS, labs notable for BUN/Cr 53/1.4, CXR shows mild atelectasis in LLL without gross evidence of PNA infiltrates. Recent Travel: No PAST MEDICAL HISTORY: DM CKD CAD COPD Gout PAST SURGICAL HISTORY: stents placed in April and May 2017 CABG 2003 Right knee replacement 2011 Social History: Retired, lives at home with his Smoking: Never Alcohol: Denies Drugs: No Family History: Brother: CAD Allergies No Known Drug Allergies Allergy (Verified 01/31/18 14:34) HOME MEDICATIONS: Home Medications Medication Instructions Recorded Allopurinol [Zyloprim -] 100 mg PO DAILY tablet 05/01/17 Aspirin Coated [Ecotrin -] 81 mg PO DAILY tablet.ec 05/01/17 Atorvastatin Ca [Lipitor] 20 mg PO HS tablet 05/01/17 Furosemide [Lasix -] 40 mg PO DAILY tablet 05/01/17 Nifedipine ER [Procardia XL -] 30 mg PO BID tab.er.24 05/01/17 Carvedilol [Coreg -] 6.25 mg PO BID 01/31/18 Clopidogrel Bisulfate [Plavix] 75 mg PO DAILY 01/31/18 Methotrexate [Mexate -] 0 mg PO Q7D 01/31/18 Omeprazole 20 mg PO BID 01/31/18 Sitagliptin Phosphate [Januvia] 50 mg PO DAILY 01/31/18 REVIEW OF SYSTEMS CONSTITUTIONAL: Absent: fever, chills, diaphoresis, generalized weakness, malaise, loss of appetite, weight change HEENT: (+) nasal congestion Absent: rhinorrhea, throat pain, throat swelling, difficulty swallowing, mouth swelling, ear pain, eye pain, visual changes CARDIOVASCULAR: (+) chest pain, peripheral edema Absent: syncope, palpitations, irregular heart rate, lightheadedness, RESPIRATORY: (+) dyspnea with exertion Absent: cough, shortness of breath, orthopnea, wheezing, stridor, hemoptysis GASTROINTESTINAL: Absent: abdominal pain, abdominal distension, nausea, vomiting, diarrhea, constipation, melena, hematochezia GENITOURINARY: Absent: dysuria, frequency, urgency, hesitancy, hematuria, flank pain, genital pain MUSCULOSKELETAL: Absent: myalgia, arthralgia, joint swelling, back pain, neck pain SKIN: Absent: rash, itching, pallor HEMATOLOGIC/IMMUNOLOGIC: Absent: easy bleeding, easy bruising, lymphadenopathy, frequent infections ENDOCRINE: Absent: unexplained weight gain, unexplained weight loss, heat intolerance, cold intolerance NEUROLOGIC: Absent: headache, focal weakness or paresthesias, dizziness, unsteady gait, seizure, mental status changes, bladder or bowel incontinence PSYCHIATRIC: Absent: anxiety, depression, suicidal or homicidal ideation, hallucinations. PHYSICAL EXAMINATION Vital Signs - 24 hr 01/31/18 01/31/18 01/31/18 14:34 18:48 21:00 Temperature 97.7 F 98.4 F Pulse Rate 87 Pulse Rate [ 72 Apical] Respiratory 18 18 Rate Blood Pressure 162/81 Blood Pressure 146/77 [Left Arm] O2 Sat by Pulse 94 L 95 95 Oximetry (%) 01/31/18 01/31/18 21:03 21:32 Temperature 97.5 F L 97.5 F L Pulse Rate 58 L 58 L Pulse Rate [ Apical] Respiratory 18 18 Rate Blood Pressure 170/56 L 170/56 L Blood Pressure [Left Arm] O2 Sat by Pulse 95 Oximetry (%) GENERAL: Awake, alert, and fully oriented, in no acute distress. HEAD: Normal with no signs of trauma. EYES: Pupils equal, round and reactive to light, extraocular movements intact, sclera anicteric, conjunctiva clear. No lid lag. EARS, NOSE, THROAT: Ears normal, nares patent, oropharynx clear without exudates. Moist mucous membranes. NECK: Normal range of motion, supple without lymphadenopathy, JVD, or masses. LUNGS: Breath sounds equal, clear to auscultation bilaterally. No wheezes, and no crackles. No accessory muscle use. HEART: +Systolic murmur, regular rate and rhythm, normal S1 and S2 ABDOMEN: Soft, nontender, not distended, normoactive bowel sounds, no guarding, no rebound, no masses. No hepatomegaly or splenomegaly. MUSCULOSKELETAL: Normal range of motion at all joints. No bony deformities or tenderness. No CVA tenderness. UPPER EXTREMITIES: 2+ pulses, warm, well-perfused. No cyanosis. No clubbing. No peripheral edema. LOWER EXTREMITIES: Trace edema, 2+ pulses, warm, well-perfused. No calf tenderness. NEUROLOGICAL: No facial droop, tongue midline, normal speech. PSYCHIATRIC: Cooperative. Good eye contact. Appropriate mood and affect. SKIN: Warm, dry, normal turgor, no rashes or lesions noted, normal capillary refill. Laboratory Results - last 24 hr 01/31/18 01/31/18 01/31/18 14:46 14:46 14:46 WBC 6.2 RBC 3.62 L Hgb 11.7 Hct 35.8 MCV 98.9 H MCH 32.4 MCHC 32.8 RDW 16.1 H Plt Count 126 L MPV 9.0 Absolute Neuts (auto) 4.8 Neutrophils % 77.2 D Lymphocytes % 13.3 D Monocytes % 6.3 Eosinophils % 2.7 Basophils % 0.5 Sodium 139 Potassium 4.4 Chloride 104 Carbon Dioxide 28 Anion Gap 7 L BUN 53 H Creatinine 1.4 H Creat Clearance w eGFR 48.40 Random Glucose 183 H D Calcium 9.5 Total Bilirubin 0.3 AST 18 ALT 18 Alkaline Phosphatase 44 Creatine Kinase Troponin I 0.04 D Total Protein 6.7 Albumin 4.0 01/31/18 01/31/18 23:25 23:25 WBC RBC Hgb Hct MCV MCH MCHC RDW Plt Count MPV Absolute Neuts (auto) Neutrophils % Lymphocytes % Monocytes % Eosinophils % Basophils % Sodium Potassium Chloride Carbon Dioxide Anion Gap BUN Creatinine Creat Clearance w eGFR Random Glucose Calcium Total Bilirubin AST ALT Alkaline Phosphatase Creatine Kinase 74 Troponin I 0.04 Total Protein Albumin ASSESSMENT/PLAN: 82 year old male with a PMH significant for CAD s/p CABG and stents, DM, CKD, COPD, and gout presented to the ED at the request of his PCP for 1 month of worsening chest pain. ED work up largely negative; placed on observation for telemetry monitoring. Chest pain - Hx of coronary artery disease - 04/29 Echo: LV normal; RV normal; LAE; mild MR; moderate TR - 04/30 Nuclear stress: moderate inferolateral ischemia, EF 56% - Troponins neg x 2 - ECG without ischemic changes - Cardiac monitoring - Continue ASA, Lipitor, nifedipine, carvedilol - Cardiac consult ordered. Diastolic dysfunction - Furosemide 40 mg PO DAILY Hypertension - Off ACEI due to persistent hyperkalemia - Continue home medications: - Nifedipine ER 30 mg PO BID - Carvedilol 6.25 mg PO BID HLD - Continue Atorvastatin Ca 20 mg PO HS - LFTs WNL CKD - Cr stable - Monitor BMP Gout - Allopurinol 100 mg PO DAILY FEN - PO intake adequate - Replete as needed - Na restricted diet Disp: Patient requires further inpatient monitoring Visit type - Emergency Visit Emergency Visit: Yes ED Registration Date: 01/31/18 Care time: The patient presented to the Emergency Department on the above date and was hospitalized for further evaluation of their emergent condition. - New Patient This patient is new to me today: Yes Date on this admission: 02/01/18 - Critical Care Critical Care patient: No
[2018-02-01 05:53] VITALS: TEMP 97.9
[2018-02-01 08:25] LABS: HEMATOCRIT 33.5 % (35.4-49); HEMOGLOBIN 10.8 GM/dl (11.7-16.9); MCHC 32.2 g/dl (32.0-35.9); MEAN CELL VOLUME 99.5 fl (80-96); MEAN PLT VOLUME 9.3 fl (7.5-11.1); PLATELET COUNT 113 K/MM3 (134-434); RBC 3.37 M/mm3 (4.00-5.60); RDW 15.7 % (11.9-15.9); WHITE BLOOD COUNT 4.8 K/mm3 (4.0-10.8)
[2018-02-01 08:33] LABS: ANION GAP 6 MMOL/L (8-16); BLOOD UREA NITROGEN 49 mg/dl (7-18); CALCIUM 9.1 mg/dl (8.4-10.2); CHLORIDE 104 mmol/L (98-107); CO2 27 mmol/L (22-28); CREATININE 1.3 mg/dl (0.6-1.3); GLUCOSE,RANDOM 136 mg/dl (74-106); POTASSIUM 4.2 mmol/L (3.5-5.1); SODIUM 137 mmol/L (136-145)
[2018-02-01] MEDS: CARVEDILOL 6.25 MG TABLET (FP) PO SCH ×2 (09:02)
[2018-02-01] MEDS: NIFEdipine E.R. 30 MG TABLET (FP) PO SCH (09:02)
[2018-02-01] MEDS: PANTOPRAZOLE 20 MG TABLET (FP) PO SCH (09:03)
[2018-02-01 09:13] VITALS: BP 143/56; PULSE 80
--- NOTE | 2018-02-01 09:37 | PN ---
Progress Note (short form) - Note Progress Note: Chief Complaint: chest discomfort s: chest discomfort resolved, walking down the halls without symptoms. wants to go home. no chest pain, dyspnea, palps, dizziness, lightheadedness Current Medications Allopurinol (Zyloprim -) 100 mg PO DAILY [facility] Last Admin: 02/01/18 09:02 Dose: 100 mg Aspirin (Ecotrin -) 81 mg PO DAILY [facility] Last Admin: 02/01/18 09:02 Dose: 81 mg Atorvastatin Calcium (Lipitor -) 20 mg PO HS [facility] Last Admin: 01/31/18 21:07 Dose: 20 mg Carvedilol (Coreg -) 6.25 mg PO BID [facility] Last Admin: 02/01/18 09:02 Dose: 6.25 mg Clopidogrel Bisulfate (Plavix -) 75 mg PO DAILY [facility] Last Admin: 02/01/18 09:03 Dose: 75 mg Furosemide (Lasix -) 40 mg PO DAILY [facility] Last Admin: 02/01/18 09:01 Dose: 40 mg Heparin Sodium (Porcine) (Heparin -) 5,000 unit SQ BID [facility] Last Admin: 02/01/18 09:01 Dose: 5,000 unit Nifedipine (Procardia Xl -) 30 mg PO BID [facility] Last Admin: 02/01/18 09:02 Dose: 30 mg Nitroglycerin (Nitrostat -) 0.4 mg SL Q5M PRN PRN Reason: FOR CHEST PAIN Pantoprazole Sodium (Protonix -) 20 mg PO BID [facility] Last Admin: 02/01/18 09:03 Dose: 20 mg Vital Signs: Vital Signs Period Temp Pulse Resp BP Sys/Downs Pulse Ox Last 24 Hr 97.5 F-98.4 F 58-87 18-18 122-170/55-81 94-98 Constitutional: Yes: Well Nourished, No Distress, Calm Eyes: Yes: Conjunctiva Clear, EOM Intact HENT: Yes: Atraumatic, Normocephalic Neck: Yes: Supple, Trachea Midline Respiratory: Yes: Regular, CTA Bilaterally Gastrointestinal: Yes: Normal Bowel Sounds, Soft Cardiovascular: Yes: Regular Rate and Rhythm JVD: No Carotid Bruit: No Heart Sounds: Yes: S1, S2 Musculoskeletal: No: Back Pain Extremities: No: Cold Edema: No Edema: LLE: 2+, RLE: 2+ Peripheral Pulses: 2+ Left Carotid, 2+ Right Carotid, 2+ Left Doralis Pedis, 2+ Right Dorsalis Pedis Integumentary: Yes: Body Piercing, Bruising Neurological: Yes: Alert, Oriented Psychiatric: Yes: Alert, Oriented Assessment/Plan EKG: sb with AV delay and wenckebach. anterior q waves. no acute ischemic changes, similar to priors. tele: sr/sb with wenckebach jayesh stress 04/2017: frequent pac's and occasional pvc's noticed during stress. moderate sized, moderate intensity reversible inferolateral perfusion defect. EF 56%. TID + 1.22. (confirmed with Dr. Anthony) echo [facility] 04/2017: nl lv/rv size/fn. mod lae. aneurysmal IAS. 1+ mr. mod tr. nl rvsp echo 05/2016: mild lvh, with additional basal septal hypertrophy. nl lv size/fn , mild-mod RV dil, nl fn, E, A reversal. A 1.1 m/s. E/E' inc, sev lae, mild sea , IAS aneuyrsmal, 1+ ar, mild-mod mr, (by my review mod mac with 1+ func ms - I measured MG 4 mmHg), mod tr, rvsp 62, , nl ivc cxr: new bibasilar atelectasis (by my review: pt with known right hemidiaphragm elevation, persistent fluid vs. scarring in fissure). cath 2002 [facility]: LVEDP 13-17. 60% plad, 95% mLAD/D2, 95% oD1, 50 % oD2, 95% pLCx, 95% mLCx, 40% om2, 80% prca, 60% drca. EF 65% tele: sinus a/p: 82 yo with pmhx of CAD s/p CABG 2003 [facility] (ZEE-LAD, SVG-OM, SVG-PDA/ drca) , HTN with diastolic dysfunction, severe pHTN with mild-mod RV dilation, MAC with mild functional MS, mild-mod MR, HL, AV delay/wenckebach/bradycardia, varicose veins, RA, NIDDM, mild ckd (bline cr 1.3-1.5) Gout, OA s/p b tkr who presents with chest discomfort chest discomfort - trop neg x 3 - now no chest discomfort, feels back to normal - pain not typical for prior episode of getting stents, ruled out for MN - monitor on tele, no events - no further inpatient cardiac work up chronic diastolic dysfunction/severe phtn/RV dilation - appears euvolemic - continue home lasix CAD s/p CABG - con't statin, nifedipine. asa, coreg, plavix - s/p cath, stent placement 04/2017 after pos stress htn - off acei due to persistent hyperkalemia. con't coreg, con't nifedipine. Wenckebach - known AV conduction delay. stable on coreg, continue - patient with functional ms and benefits from slow heart rate. no risk for progression of bradyarrhythmia from wenckebach. ckd: - stable cr
[2018-02-01] MEDS ORDERED: CLOPIDOGREL BISULFATE 75 MG TABLET (FP) PO SCH (10:00)
[2018-02-01] MEDS ORDERED: FUROSEMIDE 40 MG TABLET (FP) PO SCH (10:00)
[2018-02-01] MEDS ORDERED: ALLOPURINOL 100 MG TABLET (FP) PO SCH (10:00)
[2018-02-01] MEDS ORDERED: ASPIRIN COATED 81 MG TABLET.EC PO SCH (10:00)
[2018-02-01] MEDS ORDERED: HEPARIN NA (PORCINE) 5,000 UNITS/ML 1ML VIAL SQ SCH (10:00)
--- NOTE | 2018-02-01 10:43 | DS ---
Physical Exam: SUBJECTIVE: Patient seen and examined OBJECTIVE: Vital Signs Period Temp Pulse Resp BP Sys/Downs Pulse Ox Last 24 Hr 97.5 F-98.4 F 58-87 18-18 122-170/55-81 94-98 PHYSICAL EXAM GENERAL: The patient is awake, alert, and fully oriented, in no acute distress. HEAD: Normal with no signs of trauma. EYES: PERRL, extraocular movements intact, sclera anicteric, conjunctiva clear. ENT: Ears normal, nares patent, oropharynx clear without exudates, moist mucous membranes. NECK: Trachea midline, full range of motion, supple. LUNGS: Breath sounds equal, clear to auscultation bilaterally, no wheezes, no crackles, no accessory muscle use. HEART: Regular rate and rhythm, S1, S2 without murmur, rub or gallop. ABDOMEN: Soft, nontender, nondistended, normoactive bowel sounds, no guarding, no rebound, no hepatosplenomegaly, no masses. EXTREMITIES: 2+ pulses, warm, well-perfused, no edema. NEUROLOGICAL: Cranial nerves II through XII grossly intact. Normal speech, gait not observed. PSYCH: Normal mood, normal affect. SKIN: Warm, dry, normal turgor, no rashes or lesions noted. LABS Laboratory Results - last 24 hr 01/31/18 01/31/18 01/31/18 14:46 14:46 14:46 WBC 6.2 RBC 3.62 L Hgb 11.7 Hct 35.8 MCV 98.9 H MCH 32.4 MCHC 32.8 RDW 16.1 H Plt Count 126 L MPV 9.0 Absolute Neuts (auto) 4.8 Neutrophils % 77.2 D Lymphocytes % 13.3 D Monocytes % 6.3 Eosinophils % 2.7 Basophils % 0.5 Sodium 139 Potassium 4.4 Chloride 104 Carbon Dioxide 28 Anion Gap 7 L BUN 53 H Creatinine 1.4 H Creat Clearance w eGFR 48.40 Random Glucose 183 H D Calcium 9.5 Total Bilirubin 0.3 AST 18 ALT 18 Alkaline Phosphatase 44 Creatine Kinase Troponin I 0.04 D Total Protein 6.7 Albumin 4.0 01/31/18 01/31/18 02/01/18 23:25 23:25 07:00 WBC 4.8 RBC 3.37 L Hgb 10.8 L Hct 33.5 L MCV 99.5 H MCH 32.0 MCHC 32.2 RDW 15.7 Plt Count 113 L MPV 9.3 Absolute Neuts (auto) Neutrophils % Lymphocytes % Monocytes % Eosinophils % Basophils % Sodium Potassium Chloride Carbon Dioxide Anion Gap BUN Creatinine Creat Clearance w eGFR Random Glucose Calcium Total Bilirubin AST ALT Alkaline Phosphatase Creatine Kinase 74 Troponin I 0.04 Total Protein Albumin 02/01/18 02/01/18 02/01/18 07:00 07:30 07:30 WBC RBC Hgb Hct MCV MCH MCHC RDW Plt Count MPV Absolute Neuts (auto) Neutrophils % Lymphocytes % Monocytes % Eosinophils % Basophils % Sodium Cancelled 137 Potassium Cancelled 4.2 Chloride Cancelled 104 Carbon Dioxide Cancelled 27 Anion Gap Cancelled 6 L BUN Cancelled 49 H Creatinine Cancelled 1.3 Creat Clearance w eGFR Cancelled 52.72 Random Glucose Cancelled 136 H D Calcium Cancelled 9.1 Total Bilirubin AST ALT Alkaline Phosphatase Creatine Kinase Troponin I Cancelled 0.04 Total Protein Albumin HOSPITAL COURSE: Date of Admission:01/31/18 Date of Discharge: 02/01/18 Pre hospital course 82 year old male with a PMH significant for CAD s/p CABG and recent stents of April and May of this year, DM, CKD, COPD, and gout presented to the ED at the request of his PCP for 1 month of worsening chest pain. He had an appointment with his PCP today because he was also having nasal congestion and figured his symptoms could be related to respiratory issues. His PCP requested he present to the ED given his extensive cardiac history. Denies fevers, dizziness, syncope, seizures, SOB, n/v/d. ED course Upon admission to the ED, VSS, labs notable for BUN/Cr 53/1.4, CXR shows mild atelectasis in LLL without gross evidence of PNA infiltrates. Subsequent hospital course Chest pain --resolved, patient feels back to normal --troponins neg x 3 --ECG without ischemic changes --seen and evaluated by cardiology, no further inpatient cardiac workup Coronary artery disease s/p stent placement --04/29/17 Echo: LV normal; RV normal; LAE; mild MR; moderate TR --04/30/17 Nuclear stress: moderate inferolateral ischemia, EF 56%--> stent placement --Continued ASA, Lipitor, nifedipine, carvedilol Diastolic dysfunction, chronic --appeared euvolemic - continue home dose lasix Hypertension - Off ACEI due to persistent hyperkalemia - Continued carvedilol and nifedipine HLD - Continued Atorvastatin CKD - Cr stable Gout - continued allopurinol Minutes to complete discharge: 35 Discharge Summary Reason For Visit: CHEST PAIN Current Active Problems Chest pain (Acute) Condition: Stable - Instructions Referrals: Fritz Hernandez MD [Primary Care Provider] - - Home Medications Comprehensive Discharge Medication List: Ambulatory Orders Allopurinol [Zyloprim -] 100 mg PO DAILY tablet 05/01/17 Aspirin Coated [Ecotrin -] 81 mg PO DAILY tablet.ec 05/01/17 Atorvastatin Ca [Lipitor] 20 mg PO HS tablet 05/01/17 Furosemide [Lasix -] 40 mg PO DAILY tablet 05/01/17 Nifedipine ER [Procardia XL -] 30 mg PO BID tab.er.24 05/01/17 Carvedilol [Coreg -] 6.25 mg PO BID 01/31/18 Clopidogrel Bisulfate [Plavix] 75 mg PO DAILY 01/31/18 Methotrexate [Mexate -] 0 mg PO Q7D 01/31/18 Omeprazole 20 mg PO BID 01/31/18 Sitagliptin Phosphate [Januvia] 50 mg PO DAILY 01/31/18 This patient is new to me today: Yes Date on this admission: 02/01/18 Emergency Visit: Yes ED Registration Date: 01/31/18 Care time: The patient presented to the Emergency Department on the above date and was hospitalized for further evaluation of their emergent condition. Critical Care patient: No - Discharge Referral Referred to [facility] Med P.C.: Yes Physician Referral: Lalit Kaminski MD (Int Med)
--- NOTE | 2018-02-01 14:18 | EKG ---
Test Reason : Blood Pressure : / mmHG Vent. Rate : 073 BPM Atrial Rate : 085 BPM P-R Int : 000 ms QRS Dur : 110 ms QT Int : 394 ms P-R-T Axes : 000 011 -04 degrees QTc Int : 434 ms SINUS RHYTHM WITH 2ND DEGREE A-V BLOCK (MOBITZ I) WITH PREMATURE VENTRICULAR COMPLEXES OR FUSION COMPLEXES ANTEROSEPTAL INFARCT (CITED ON OR BEFORE 07-JUL-2016) ABNORMAL ECG WHEN COMPARED WITH ECG OF 28-APR-2017 22:24, FUSION COMPLEXES ARE NOW PRESENT PREMATURE VENTRICULAR COMPLEXES ARE NOW PRESENT Confirmed by MD DELMY, TARAS ([id number]) on 02/01/2018 2:18:11 PM Referred By: AUDIE Confirmed By:TARAS BROCK MD
== END 2018-02-01 12:29 | disposition home or self-care (01) ==
LOC: FER 14:33 → FM/S 16:49
PROVIDERS: ADMIT Internal Medicine; ATTEND Nurse Practitioner Acute Care
PROC: 3E013GC Introduction of Other Therapeutic Substance into Subcutaneous Tissue, Percutaneous Approach (ICD-10-PCS; principal; 2018-01-31)
DX: R07.89 Other chest pain (principal); E11.22 Type 2 diabetes mellitus with diabetic chronic kidney disease; I12.9 Hypertensive chronic kidney disease with stage 1 through stage 4 chronic kidney disease, or unspecified chronic kidney disease; N18.9 Chronic kidney disease, unspecified; I50.32 Chronic diastolic (congestive) heart failure; I11.0 Hypertensive heart disease with heart failure; I25.10 Atherosclerotic heart disease of native coronary artery without angina pectoris; I44.1 Atrioventricular block, second degree; J44.9 Chronic obstructive pulmonary disease, unspecified; M10.9 Gout, unspecified; E78.5 Hyperlipidemia, unspecified; Z96.651 Presence of right artificial knee joint; Z95.1 Presence of aortocoronary bypass graft; Z95.5 Presence of coronary angioplasty implant and graft; Z79.82 Long term (current) use of aspirin
CPT/HCPCS: 36415; 71045-TC-FY; 80048; 80053; 82550; 84484; 85025; 85027; 93005; 96372; 99283-25; G0378; J1644

== ENCOUNTER 2018-09-30 11:57 | Inpatient (IN) | payer OTHER ==
--- NOTE | 2018-09-30 12:02 | PDOC ---
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 Pt states he can cut the grass outside and ambulate around the house at his normal baseline without feeling SOB during the day. Pt denies chest pain, orthopnea, or lower extremity edema. Pt denies any recent travel or surgeries in the last 6 month. 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 Pt states at [place] (site of PCI) that he was known to have an "escape rhythm," but that pacemaker was not done at that time. Pt denies any recent fevers/chills, nasal congestion, headache, vision changes, syncope, chest pain, palpitations, nausea/vomiting, abdominal pain, urinary symptoms, diarrhea/constipation, or leg swelling. Allergies: NKDA PCP: [facility] Cards: Vickie Talbert Social: Pt denies any cigarette, alcohol, or drug use. Pt denies any recent travel or sick contacts. Surgical: CABG/PCI as above, R knee surgery, inguinal hernia repair Family: mother with "escape rhythm," pacemaker placed in her 80s in [place] 09/30/18 13:12 09/30/18 13:19 Past History - Travel Traveled outside of the country in the last 30 days: No Close contact w/someone who was outside of country & ill: No - Past Medical History Allergies/Adverse Reactions: Allergies Allergy/AdvReac Type Severity Reaction Status Date / Time No Known Drug Allergies Allergy Verified 09/30/18 12:04 Home Medications: Ambulatory Orders Allopurinol [Zyloprim -] 100 mg PO DAILY tablet 05/01/17 Aspirin Coated [Ecotrin -] 81 mg PO DAILY tablet.ec 05/01/17 Furosemide [Lasix -] 40 mg PO DAILY tablet 05/01/17 Nifedipine ER [Procardia XL -] 30 mg PO BID tab.er.24 05/01/17 Carvedilol [Coreg -] 6.25 mg PO BID 01/31/18 Clopidogrel Bisulfate [Plavix] 75 mg PO DAILY 01/31/18 Methotrexate [Mexate -] 0 mg PO Q7D 01/31/18 Sitagliptin Phosphate [Januvia] 50 mg PO DAILY 01/31/18 Atorvastatin Ca [Lipitor] 80 mg PO HS 09/30/18 Famotidine 40 mg PO DAILY 09/30/18 Anemia: No Asthma: No Cancer: No Cardiac Disorders: Yes (s/p cabg 2003) CVA: No COPD: No CHF: No Dementia: No Diabetes: Yes GI Disorders: No Disorders: No HTN: Yes Hypercholesterolemia: Yes Kidney Stones: Yes Liver Disease: No Seizures: No Thyroid Disease: No - Surgical History Abdominal Surgery: No Appendectomy: No Cardiac Surgery: Yes (CABG X 3-LAST STRESS TEST 1 MONTH AGO) Cholecystectomy: No Lung Surgery: No Neurologic Surgery: No Orthopedic Surgery: Yes (RIGHT KNEE REPLACEMENT 2011) - Suicide/Smoking/Psychosocial Hx Smoking Status: No Smoking History: Never smoked Have you smoked in the past 12 months: No Number of Cigarettes Smoked Daily: 0 Hx Alcohol Use: No Drug/Substance Use Hx: No Substance Use Type: None Hx Substance Use Treatment: No Review of Systems - Review of Systems Able to Perform ROS?: Yes Is the patient limited Peruvian proficient: No Constitutional: Yes: Weight Stable. No: Chills, Diaphoresis, Fever, Loss of Appetite, Malaise, Weakness HEENTM: No: Blurred Vision, Double Vision, Nose Congestion, Throat Pain, Throat Swelling, Difficulty Swallowing Respiratory: Yes: Shortness of Breath (PND). No: Cough, Orthopnea, SOB with Exertion, SOB at Rest, Wheezing, Productive cough, Hemoptysis Cardiac (ROS): No: Chest Pain, Edema, Irregular Heart Rate, Lightheadedness, Palpitations, Syncope, Chest Tightness ABD/GI: No: Constipated, Diarrhea, Nausea, Poor Appetite, Poor Fluid Intake, Rectal Bleeding, Vomiting, Abdominal cramping, Tarry Stools : No: Burning, Dysuria, Frequency, Pain, Urgency Musculoskeletal: No: Back Pain, Joint Pain, Muscle Pain, Muscle Weakness Integumentary: No: Rash Neurological: No: Headache, Numbness, Weakness, Dizziness Psychiatric: No: Sleep Pattern Change, Change in Appetite Endocrine: No: Increased Urine, Change in Weight Hematologic/Lymphatic: Yes: Blood Clots (CABG, PCI). No: Anemia, Easy Bleeding , Easy Bruising All Other Systems: Reviewed and Negative *Physical Exam - Physical Exam Comments: HTN, 91% on RA (o2 applied), HR 60s on my exam, pt afebrile. Pt in NAD, normal body habitus. Resting comfortably. Pt alert and oriented x3. unified communications architect generally intact, muscular strength and sensation intact. No midline spinal tenderness, step-offs, or crepitus. Head normocephalic, atraumatic. Eyes PERRLA, EOMI. Oropharynx without erythema or exudates, no LAD b/l. No nasal congestion, hearing intact. Clear heart sounds, S1/S2, no JVD, b/l pedal edema, or heart murmur. +diffuse expiratory wheezes throughout. No crackles, or accessory muscle use. No abdominal or CVA tenderness to palpation, no rebound, no guarding. Abdomen soft, non-distended, and with normoactive bowel sounds. Skin without jaundice or rash. 09/30/18 13:22 ED Treatment Course - LABORATORY CBC & Chemistry Diagram: 09/30/18 12:10 09/30/18 12:10 Medical Decision Making - Medical Decision Making Pt was seen at bedside, also will be seen by attending Dr. Ross. Pt presenting with complaints of new-onset SOB which is waking him from sleep. Diffuse expiratory wheezing. Will evaluate for arrhythmia, ACS, pneumonia/ pleural effusion, COPD exacerbation. Provided 2 amp duoneb and 2 L NC for improvement of wheezing and SOB. Will continue to reassess pt and monitor for symptomatic improvement. ECG: Sinus with 2nd degree AV block/Mobitz type I (HR 58, QRS 104, QTc 451). No TWIs or significant ST segment changes. No significant changes from prior ECG. 09/30/18 13:35 CBC and CMP WNL for pt baseline Trop 0.10 -- providing full dose of aspirin (243 mg PO), as pt takes 81 mg per day Providing 10 mg IV decadron for potential COPD exacerbation 09/30/18 13:38 chest x-ray with increased infiltrate vs poor inspiration BNP pending (send-out) admitting to telemetry, hospitalist team paged 09/30/18 13:[address] Johnston (cardiology) for consult 09/30/18 14:00 Dr. Johnston will follow the pt. States echo was done 1 month ago in clinic with preserved EF Pt admitted to hospitalist team. Pt states breathing improved after nebulizer treatments, wheezing improved on exam. 09/30/18 14:05 *DC/Admit/Observation/Transfer Diagnosis at time of Disposition: AV block, Mobitz 1, S/P CABG (coronary artery bypass graft), Elevated troponin I level - Discharge Dispostion Condition at time of disposition: Stable Decision to Admit order: Yes - Referrals - Patient Instructions - Post Discharge Activity
[2018-09-30 12:18] VITALS: BMI 27.7
[2018-09-30 12:24] LABS: HEMOGLOBIN 11.8 GM/dl (11.7-16.9); MEAN PLT VOLUME 8.6 fl (7.5-11.1)
[2018-09-30 12:29] LABS: BASO % 0.6 % (0-2.0); EOS % 3.7 % (0-4.5); HEMATOCRIT 34.6 % (35.4-49); LYMPH % 15.2 % (8-40); MCH 33.6 pg (25.7-33.7); MEAN CELL VOLUME 98.6 fl (80-96); MONO % 3.2 % (3.8-10.2); NEUT % 77.3 % (42.8-82.8); PLATELET COUNT 136 K/MM3 (134-434); RDW 15.5 % (11.9-15.9); WHITE BLOOD COUNT 6.9 K/mm3 (4.0-10.8)
[2018-09-30] MEDS ORDERED: ALBUTEROL SO4 2.5/IPRATROPIUM 0.5 INH SOL 3 ML VIAL.NEB. NEB ONE ×2 (12:30→12:34)
[2018-09-30 12:36] LABS: ACTIVATED PTT 30.3 SECONDS (25.2-36.5); ALBUMIN 3.9 g/dl (3.4-5.0); BILIRUBIN,TOTAL 0.5 mg/dl (0.2-1); CALCIUM 8.8 mg/dl (8.5-10); CREATININE 1.6 mg/dl (0.55-1.3); MAGNESIUM 2.1 mg/dL (1.8-2.4); POTASSIUM 4.5 mmol/L (3.5-5.1); TOT PROT 6.7 g/dl (6.4-8.2)
[2018-09-30 12:40] LABS: INR 1.15 (0.82-1.09); PROTHROMBIN TIME (PATIENT) 12.8 SEC (10.2-13.0)
[2018-09-30] MEDS ORDERED: ASPIRIN 81 MG CHEWABLE TABLETS PO ONE (13:10)
[2018-09-30] MEDS ORDERED: ASPIRIN 81 MG CHEWABLE TABLETS ONE (13:43)
[2018-09-30] MEDS ORDERED: DEXAMETHASONE SOD PHOSPHATE 10 MG/1 ML VIAL IVPUSH ONE (13:45)
--- NOTE | 2018-09-30 14:12 | HP ---
CHIEF COMPLAINT: Shortness of breath PCP: Dr. Kaminski Cardiology: Dr. Johnston Pulmonology: Dr. Talbert HISTORY OF PRESENT ILLNESS: 82 year old male with a PMH significant for HTN, HLD, CAD s/p CABG 2004 s/p stents 2018, bradycardia, second degree HB Mobitz Type I, Type II NIDDM, CKD, COPD, and gout. Patient was seen by his pulmonolgist Dr. Talbert yesterday, and by his coil finisher Dr. Johnston today. He reported worsening shortness of breath that awakens him from sleep. Sleeping upright in a recliner did not relieve his symptoms. He was referred to the ED for evaluation. Denies fever, sweats, chills , cough. Denies chest pain, palpitations, lightheadedness, lower extremity edema. ER course was notable for: (1) SpO2 91% room air (2) Troponin 0.10 (3) ASA 243mg x 1; decadron IVP 10mg x 1; duoneb x 1 Recent Travel: No PAST MEDICAL HISTORY: Hypertension Hyperlipidemia Bradycardia Second degree HB Mobitz Type I Coronary artery disease Type II NIDDM Chronic kidney disease COPD/asbestosis Gout PAST SURGICAL HISTORY: CABG ([place], 2003) Coronary stents Right knee replacement 2012 Inguinal hernia repair Social History: lives in [place] with ; retired [employer] Smoking: never Alcohol: no Drugs: no Family History: Mother 95 unknown cause; father 72 unknown cause; 3 brothers a&w; 2 children a&w Allergies No Known Drug Allergies Allergy (Verified 09/30/18 12:04) HOME MEDICATIONS: Home Medications Medication Instructions Recorded Allopurinol [Zyloprim -] 100 mg PO DAILY tablet 05/01/17 Aspirin Coated [Ecotrin -] 81 mg PO DAILY tablet.ec 05/01/17 Furosemide [Lasix -] 40 mg PO DAILY tablet 05/01/17 Nifedipine ER [Procardia XL -] 30 mg PO BID tab.er.24 05/01/17 Carvedilol [Coreg -] 6.25 mg PO BID 01/31/18 Clopidogrel Bisulfate [Plavix] 75 mg PO DAILY 01/31/18 Methotrexate [Mexate -] 0 mg PO Q7D 01/31/18 Sitagliptin Phosphate [Januvia] 50 mg PO DAILY 01/31/18 Atorvastatin Ca [Lipitor] 80 mg PO HS 09/30/18 Famotidine 40 mg PO DAILY 09/30/18 REVIEW OF SYSTEMS CONSTITUTIONAL: Absent: fever, chills, diaphoresis, generalized weakness, malaise, loss of appetite, weight change HEENT: Absent: rhinorrhea, nasal congestion, throat pain, throat swelling, difficulty swallowing, mouth swelling, ear pain, eye pain, visual changes CARDIOVASCULAR: Absent: chest pain, syncope, palpitations, irregular heart rate, lightheadedness , peripheral edema RESPIRATORY: +SOB Absent: cough, shortness of breath, dyspnea with exertion, orthopnea, wheezing, stridor, hemoptysis GASTROINTESTINAL: Absent: abdominal pain, abdominal distension, nausea, vomiting, diarrhea, constipation, melena, hematochezia GENITOURINARY: Absent: dysuria, frequency, urgency, hesitancy, hematuria, flank pain, genital pain MUSCULOSKELETAL: Absent: myalgia, arthralgia, joint swelling, back pain, neck pain SKIN: Absent: rash, itching, pallor HEMATOLOGIC/IMMUNOLOGIC: Absent: easy bleeding, easy bruising, lymphadenopathy, frequent infections ENDOCRINE: Absent: unexplained weight gain, unexplained weight loss, heat intolerance, cold intolerance NEUROLOGIC: Absent: headache, focal weakness or paresthesias, dizziness, unsteady gait, seizure, mental status changes, bladder or bowel incontinence PSYCHIATRIC: Absent: anxiety, depression, suicidal or homicidal ideation, hallucinations. PHYSICAL EXAMINATION Vital Signs - 24 hr 09/30/18 09/30/18 11:58 13:45 Temperature 98.2 F Pulse Rate 71 Pulse Rate [ 61 Right] Respiratory 28 H 20 Rate Blood Pressure 164/57 L Blood Pressure 139/54 L [Left Arm] O2 Sat by Pulse 91 L 97 Oximetry (%) GENERAL: Awake, alert, and fully oriented, in no acute distress. HEAD: Normal with no signs of trauma. LUNGS: Scattered rhonchi, crackles half way up bilaterally HEART: Regular rate and rhythm, S1 and S2 ABDOMEN: Soft, nontender, not distended MUSCULOSKELETAL: Normal range of motion at all joints. No bony deformities or tenderness. No CVA tenderness. UPPER EXTREMITIES: 2+ pulses, warm, well-perfused. No cyanosis. No clubbing. No peripheral edema. LOWER EXTREMITIES: 2+ pulses, warm, well-perfused. No calf tenderness. No peripheral edema. NEUROLOGICAL: Cranial nerves II-XII intact. Normal speech. Laboratory Results - last 24 hr 09/30/18 09/30/18 09/30/18 12:10 12:10 12:10 WBC RBC Hgb Hct MCV MCH MCHC RDW Plt Count MPV Absolute Neuts (auto) Neutrophils % Lymphocytes % Monocytes % Eosinophils % Basophils % PT with INR 12.8 INR 1.15 PTT (Actin FS) 30.3 Sodium 137 Potassium 4.5 Chloride 102 Carbon Dioxide 28 Anion Gap 7 L BUN 40.0 H Creatinine 1.6 H Est GFR (CKD-EPI)AfAm 45.18 Est GFR (CKD-EPI)NonAf 38.98 Random Glucose 202 H Calcium 8.8 Magnesium 2.1 Total Bilirubin 0.5 AST 27 ALT 29 Alkaline Phosphatase 54 Creatine Kinase 129 Troponin I 0.10 H Total Protein 6.7 Albumin 3.9 09/30/18 12:10 WBC 6.9 RBC 3.50 L Hgb 11.8 Hct 34.6 L MCV 98.6 H MCH 33.6 MCHC 34.0 RDW 15.5 Plt Count 136 D MPV 8.6 Absolute Neuts (auto) 5.3 Neutrophils % 77.3 Lymphocytes % 15.2 Monocytes % 3.2 L Eosinophils % 3.7 Basophils % 0.6 PT with INR INR PTT (Actin FS) Sodium Potassium Chloride Carbon Dioxide Anion Gap BUN Creatinine Est GFR (CKD-EPI)AfAm Est GFR (CKD-EPI)NonAf Random Glucose Calcium Magnesium Total Bilirubin AST ALT Alkaline Phosphatase Creatine Kinase Troponin I Total Protein Albumin Prior cardiac testin07/2018 Echo: low normal EF 50-55%, E/A reversal, nl RV, LA severely dilated, interatrial septal aneurysm, mild AR, mod MAC with mild functional MS (3 mmHg), mild pulm HTN Event monitor: escobar with 2:1 block ASSESSMENT/PLAN: 82 year old male with a PMH significant for HTN, HLD, CAD s/p CABG 2004 s/p stents 2018, bradycardia, second degree HB Mobitz Type I, Type II NIDDM, CKD, COPD, and gout. Admitted for COPD exacerbation. Hypoxic respiratory failure secondary to COPD exacerbation --in ED was 91% on room air --titrate O2 <94% --duonebs TID --albuterol nebs PRN --solumedrol 40mg q6h --start azithromycin --pre post in am --respiratory consult Coronary artery disease s/p CABG s/p stents --initial troponin 0.1, two pending --ECG: no ischemic changes --recent echo, no need to repeat --euvolemic, continue home dose PO lasix --telemetry monitoring --continue ASA, Plavix, carvedilol, Lipitor --seen and evaluated by Dr. Johnston who follows patient regularly Hypertension --BP stable --cotinue carvedilol, nifedipine Hyperlipidemia --continue Lipitor Second degree heart block, Mobitz Type I --stable --telemetry monitoring Type II NIDDM --Novolog sliding scale coverage FEN Fluids: PO intake adequate Electrolytes: replete as indicated Nutrition: diabetic, low sodium DVT prophylaxis: subq heparin Physical therapy Dispo: continues to require inpatient care. Full code. Visit type - Emergency Visit Emergency Visit: Yes ED Registration Date: 09/30/18 Care time: The patient presented to the Emergency Department on the above date and was hospitalized for further evaluation of their emergent condition. - New Patient This patient is new to me today: Yes Date on this admission: 09/30/18 - Critical Care Critical Care patient: No
--- NOTE | 2018-09-30 14:37 | PDOC ---
Attending Attestation - Resident Resident Name: Denia Rebolledo - HPI HPI: 09/30/18 14:30 Pt presents to the ED complaining of orthopnea and PND for the last three days. Also complains of mild DIAMOND. Extensive cardiac history as noted in resident note. Also has history of COPD, but does not use home oxygen. + known history of "escape rhythm". - Physicial Exam PE: 10/02/18 09:32 Agree with resident exam. Patient is alert and in no acute distress. Mildly tachpneic, with slight wheezes b/l and good air entry. Heart : regular rate and rhythm, no murmurs. No LE edema. - Medical Decision Making 10/02/18 09:33 pt presents to the ED complaining of shortness of breath. Denies other complaints. CHF vs COPD exacerbation. WIll check labs and CXR, admit to medicine.
--- NOTE | 2018-09-30 14:43 | PN ---
Progress Note (short form) - Note Progress Note: Patient evaluated in the office this AM, 83M h/o CAD ( [facility], SVG-OM, SVG-PDA/drca (known occluded) and subsequent PCI most recently 04/2017 CASSIDY x 1 to SVG-proxOM1, 05/2017 CASSIDY x 4 to RCA on DAPT), HTN, HLD, bradycardia, wenckebach presenting with shortness of breath with any activity. Appeared euvolemic on exam, EKG sinus rhythm with wenckebach, no ischemic changes. Advised to go to ER. Prior cardiac testing: echo 07/2018 sinus with first deg AVB and wenckebach, tds, low normal EF 50-55%, E/A reversal, nl RV, LA severely dilated, interatrial septal aneurysm, mild AR, mod MAC with mild functional MS (3 mmHg), mild pulm HTN Event monitor: wenckebach with episodes of wenckebach with 2:1 block cath 05/2017 [facility] [place] (staged intervention - part 2): LVEDP 15. prca 80-90% --> rotational atherectomy/PTCA/CASSIDY, mRCA 80-90% --> rotational atherectomy/PTCA/CASSIDY , dRCA 90-95% -->rotational atherectomy/PTCA/CASSIDY. RPDA mild dz, AV continuation 90-95% --> rotational atherectomy/CASSIDY. SVG to prox OM1 patent with patient stent as well. Plan: - initial trop 0.1, no ischemic change on EKG - trend trop, monitor on tele - BNP elevated however appears euvolemic on exam, CXR no congestion - defer diuretics at this point - manage COPD per primary - cont home meds
[2018-09-30] MEDS ORDERED: DEXAMETHASONE SOD PHOSPHATE 10 MG/1 ML VIAL ONE (16:04)
[2018-09-30] MEDS ORDERED: ALBUTEROL SO4 0.083% IH SOL 2.5 MG/3 ML VIAL.NEB. NEB PRN (16:16)
[2018-09-30] MEDS ORDERED: AZITHROMYCIN IVPB 500 MG/250 ML BAG IVPB ONE (16:18)
[2018-09-30] MEDS: methylPREDNISolone NA SUCC 40 MG/1 ML VIAL IVPUSH SCH (17:05)
[2018-09-30] MEDS: INSULIN SLIDING SCALE (NOVOLOG) 1 VIAL SQ SCH ×2 (17:06→21:24)
[2018-09-30] MEDS: ATORVASTATIN CA 80 MG TABLET (FP) PO SCH (21:23)
[2018-09-30] MEDS: HEPARIN NA (PORCINE) 5,000 UNITS/ML 1ML VIAL SQ SCH (21:23)
[2018-09-30] MEDS: NIFEdipine E.R. 30 MG TABLET (FP) PO SCH (21:23)
[2018-09-30] MEDS: ALBUTEROL SO4 2.5/IPRATROPIUM 0.5 INH SOL 3 ML VIAL.NEB. NEB SCH (21:23)
[2018-09-30] MEDS ORDERED: CARVEDILOL 6.25 MG TABLET (FP) PO SCH (22:00)
[2018-10-01] MEDS: methylPREDNISolone NA SUCC 40 MG/1 ML VIAL IVPUSH SCH ×3 (01:22→17:56)
[2018-10-01] MEDS: HEPARIN NA (PORCINE) 5,000 UNITS/ML 1ML VIAL SQ SCH ×3 (06:34→21:13)
[2018-10-01] MEDS: INSULIN SLIDING SCALE (NOVOLOG) 1 VIAL SQ SCH ×4 (06:34→21:17)
--- NOTE | 2018-10-01 07:25 | PN ---
Progress Note, Physician Chief Complaint: sob History of Present Illness: reports sob/restlessness when laying in bed 2 night [employer]. but also felt breathlessness during the day on DOA no more sob or orthopnea/PND since in hospital--on [place] oxygen, abx for pneumonitis has had sporadic PND on occasion for quite some time, hasn't been test for copd has had no leg swelling. on lasix 40 qd many yrs--urinates a lot after the dose. urinates a lot at night as well (without lasix) denies any cp at all - Current Medication List Current Medications: Active Medications Albuterol Sulfate (Ventolin 0.083% Nebulizer Soln -) 1 amp NEB Q4H PRN PRN Reason: SHORT OF BREATH/WHEEZING Albuterol/Ipratropium (Duoneb -) 1 amp NEB RTID [facility] Last Admin: 09/30/18 21:23 Dose: 1 amp Allopurinol (Zyloprim -) 100 mg PO DAILY [facility] Aspirin (Ecotrin -) 81 mg PO DAILY [facility] Atorvastatin Calcium (Lipitor -) 80 mg PO HS [facility] Last Admin: 09/30/18 21:23 Dose: 80 mg Carvedilol (Coreg -) 6.25 mg PO BID [facility] Last Admin: 09/30/18 21:23 Dose: 6.25 mg Clopidogrel Bisulfate (Plavix -) 75 mg PO DAILY [facility] Famotidine (Pepcid -) 20 mg PO BID [facility] Furosemide (Lasix -) 40 mg PO DAILY [facility] Heparin Sodium (Porcine) (Heparin -) 5,000 unit SQ TID [facility] Last Admin: 10/01/18 06:34 Dose: 5,000 unit Azithromycin 250 mg/ Dextrose 250 mls @ 250 mls/hr IVPB DAILY [facility] Stop: 10/04/18 10:59 Insulin Aspart (Novolog Vial Sliding Scale -) 1 vial SQ ACHS [facility]; Protocol Last Admin: 10/01/18 06:34 Dose: 2 units Methylprednisolone Sodium Succinate (Solu-Medrol -) 40 mg IVPUSH Q8H-IV [facility] Last Admin: 10/01/18 01:22 Dose: 40 mg Nifedipine (Procardia Xl -) 30 mg PO BID [facility] Last Admin: 09/30/18 21:23 Dose: 30 mg - Objective Vital Signs: Vital Signs Temperature 97.9 F 10/01/18 07:15 Pulse Rate 42 L 10/01/18 07:15 Respiratory Rate 20 10/01/18 07:15 Blood Pressure 135/50 L 10/01/18 07:15 O2 Sat by Pulse Oximetry (%) 92 L 10/01/18 01:00 Constitutional: Yes: Well Nourished, No Distress, Calm Cardiovascular: Yes: Regular Rate and Rhythm, S1, S2. No: JVD, Gallop, Murmur Respiratory: Yes: Regular, CTA Bilaterally. No: Accessory Muscle Use, Rales, Wheezes Extremities: No: Cold Edema: No Neurological: Yes: Alert, Oriented Psychiatric: No: Agitated Labs: CBC, BMP 09/30/18 12:10 09/30/18 12:10 INR, PTT INR 1.15 (0.82-1.09) 09/30/18 12:10 Assessment/Plan CXR: increased L parahilar markings ? sec to shallow inspiration vs early infiltrate Echo 07/2018 sinus with first deg AVB and wenckebach, tds, low normal EF 50-55%, E/A reversal, nl RV, LA severely dilated, interatrial septal aneurysm, mild AR, mod MAC with mild functional MS (3 mmHg), mild pulm HTN Event monitor: wenckebach with episodes of wenckebach with 2:1 block Cath 05/2017 [facility] [place] (staged intervention - part 2): LVEDP 15. prca 80-90% --> rotational atherectomy/PTCA/CASSIDY, mRCA 80-90% --> rotational atherectomy/PTCA/CASSIDY , dRCA 90-95% -->rotational atherectomy/PTCA/CASSIDY. RPDA mild dz, AV continuation 90-95% --> rotational atherectomy/CASSIDY. SVG to prox OM1 patent with patent stent as well. tele: sinus gail/sinus arrhythmia overnight/early am (HR 40s-50s), non- conducted APCs with occasional dropped beat-->NSR 70s during the day SOB/orthopnea/PND: - troponins flat, indeterminate range, ECG no ischemia--not suspicious for UA/ ACS - BNP 2K (baseline 500-1K)--low GFR confounds. CXR no congestion. appears clinically euvolemic - no fever or white count, no cough/phlegm/wheeze. sats 91-92% on RA--? not highly suspicious of copd here -? occult elevated LV filling pressure given sx's predominantly at night when supine--rec trial incr lasix 40 qd to 40 in am and 20 around 2pm (to minimize incr in baseline nocturia) - rec outpt sleep study (also in light of signif hi vagal tone findings on cardiac telem data) CAD, s/p CABG with subsequent PCI of SVG to OM1, mult CASSIDY to yocha dehe RCA (graft occluded): - no signs acute ischemia here - cont home regimen DAPT, hi intensity statin - has tolerated carvedilol low dose long time per pt, with known Mobitz 1 physiology. no pathological bradyarrhythmia on tele here--cont same. HTN: - bp controlled - cont home meds for now CKD: -baseline creat 1.3-1.6 -stable here HE HAS HAD NO MORE ORTHOPNEA/PND HERE, IF HE CAN AMBULATE WITHOUT SOB, HE IS OK FOR D/C FROM CARDIAC STANDPOINT (ON LASIX 40 AM, 20 AT 2PM)
[2018-10-01 08:43] LABS: HEMATOCRIT 34.4 % (35.4-49); HEMOGLOBIN 11.6 GM/dl (11.7-16.9); MCH 33.8 pg (25.7-33.7); MCHC 33.6 g/dl (32.0-35.9); MEAN CELL VOLUME 100.7 fl (80-96); MEAN PLT VOLUME 8.8 fl (7.5-11.1); PLATELET COUNT 125 K/MM3 (134-434); RBC 3.42 M/mm3 (4.00-5.60); RDW 15.5 % (11.9-15.9); WHITE BLOOD COUNT 6.7 K/mm3 (4.0-10.8)
[2018-10-01] MEDS: ALBUTEROL SO4 2.5/IPRATROPIUM 0.5 INH SOL 3 ML VIAL.NEB. NEB SCH ×3 (08:48→20:45)
[2018-10-01 09:05] LABS: ALBUMIN 3.3 g/dl (3.4-5.0); BILIRUBIN,TOTAL 0.4 mg/dl (0.2-1); CALCIUM 8.8 mg/dl (8.5-10); CREATININE 1.6 mg/dl (0.55-1.3); MAGNESIUM 2.1 mg/dL (1.8-2.4); POTASSIUM 4.8 mmol/L (3.5-5.1); TOT PROT 5.9 g/dl (6.4-8.2)
--- NOTE | 2018-10-01 09:32 | PN ---
Physical Exam: SUBJECTIVE: Patient seen and examined at bedside. Pt reports feeling better, less SOB, denies any cough, cp, palpitations, abdominal pain, N/V/D or urinary symptoms. OBJECTIVE: Vital Signs Period Temp Pulse Resp BP Sys/Downs Pulse Ox Last 24 Hr 97.4 F-98.2 F 42-71 18-28 117-164/48-57 91-98 GENERAL: The patient is awake, alert, and fully oriented, in no acute distress. HEAD: Normal with no signs of trauma. EYES: PERRL, extraocular movements intact, sclera anicteric, conjunctiva clear. No ptosis. ENT: Ears normal, nares patent, oropharynx clear without exudates, moist mucous membranes. NECK: Trachea midline, full range of motion, supple. LUNGS: Breath sounds equal, biminished, no wheezing,no crackles, no accessory muscle use. HEART: Regular rate and rhythm, S1, S2 without murmur, rub or gallop. ABDOMEN: Soft, nontender, nondistended, normoactive bowel sounds, no guarding, no rebound, no hepatosplenomegaly, no masses. EXTREMITIES: 2+ pulses, warm, well-perfused, no edema. NEUROLOGICAL: Cranial nerves II through XII grossly intact. Normal speech, gait not observed. PSYCH: Normal mood, normal affect. SKIN: Warm, dry, normal turgor, no rashes or lesions noted Laboratory Results - last 24 hr 09/30/18 09/30/18 09/30/18 12:10 12:10 12:10 WBC RBC Hgb Hct MCV MCH MCHC RDW Plt Count MPV Absolute Neuts (auto) Neutrophils % Lymphocytes % Monocytes % Eosinophils % Basophils % PT with INR 12.8 INR 1.15 PTT (Actin FS) 30.3 Sodium 137 Potassium 4.5 Chloride 102 Carbon Dioxide 28 Anion Gap 7 L BUN 40.0 H Creatinine 1.6 H Est GFR (CKD-EPI)AfAm 45.18 Est GFR (CKD-EPI)NonAf 38.98 POC Glucometer Random Glucose 202 H Calcium 8.8 Magnesium 2.1 Total Bilirubin 0.5 AST 27 ALT 29 Alkaline Phosphatase 54 Creatine Kinase 129 Troponin I 0.10 H B-Natriuretic Peptide Total Protein 6.7 Albumin 3.9 09/30/18 09/30/18 09/30/18 12:10 12:10 18:00 WBC 6.9 RBC 3.50 L Hgb 11.8 Hct 34.6 L MCV 98.6 H MCH 33.6 MCHC 34.0 RDW 15.5 Plt Count 136 D MPV 8.6 Absolute Neuts (auto) 5.3 Neutrophils % 77.3 Lymphocytes % 15.2 Monocytes % 3.2 L Eosinophils % 3.7 Basophils % 0.6 PT with INR INR PTT (Actin FS) Sodium Potassium Chloride Carbon Dioxide Anion Gap BUN Creatinine Est GFR (CKD-EPI)AfAm Est GFR (CKD-EPI)NonAf POC Glucometer Random Glucose Calcium Magnesium Total Bilirubin AST ALT Alkaline Phosphatase Creatine Kinase Troponin I 0.10 H B-Natriuretic Peptide 2003.0 H Total Protein Albumin 09/30/18 09/30/18 10/01/18 21:18 23:43 06:32 WBC RBC Hgb Hct MCV MCH MCHC RDW Plt Count MPV Absolute Neuts (auto) Neutrophils % Lymphocytes % Monocytes % Eosinophils % Basophils % PT with INR INR PTT (Actin FS) Sodium Potassium Chloride Carbon Dioxide Anion Gap BUN Creatinine Est GFR (CKD-EPI)AfAm Est GFR (CKD-EPI)NonAf POC Glucometer 247 195 Random Glucose Calcium Magnesium Total Bilirubin AST ALT Alkaline Phosphatase Creatine Kinase Troponin I 0.06 H B-Natriuretic Peptide Total Protein Albumin 10/01/18 08:00 WBC 6.7 RBC 3.42 L Hgb 11.6 L Hct 34.4 L MCV 100.7 H MCH 33.8 H MCHC 33.6 RDW 15.5 Plt Count 125 L MPV 8.8 Absolute Neuts (auto) 6.3 Neutrophils % No Result Required. Lymphocytes % No Result Required. Monocytes % Eosinophils % Basophils % PT with INR INR PTT (Actin FS) Sodium Potassium Chloride Carbon Dioxide Anion Gap BUN Creatinine Est GFR (CKD-EPI)AfAm Est GFR (CKD-EPI)NonAf POC Glucometer Random Glucose Calcium Magnesium Total Bilirubin AST ALT Alkaline Phosphatase Creatine Kinase Troponin I B-Natriuretic Peptide Total Protein Albumin Active Medications Generic Name Dose Route Start Last Admin Trade Name Freq PRN Reason Stop Dose Admin Albuterol Sulfate 1 amp 09/30/18 16:16 Ventolin 0.083% Nebulizer Soln - NEB Q4H PRN SHORT OF BREATH/WHEEZING Albuterol/Ipratropium 1 amp 09/30/18 20:00 10/01/18 08:48 Duoneb - NEB 1 amp RTID [facility] Administration Allopurinol 100 mg 10/01/18 10:00 Zyloprim - PO DAILY [facility] Aspirin 81 mg 10/01/18 10:00 Ecotrin - PO DAILY [facility] Atorvastatin Calcium 80 mg 09/30/18 22:00 09/30/18 21:23 Lipitor - PO 80 mg HS [facility] Administration Carvedilol 6.25 mg 09/30/18 22:00 09/30/18 21:23 Coreg - PO 6.25 mg BID [facility] Administration Clopidogrel Bisulfate 75 mg 10/01/18 10:00 Plavix - PO DAILY [facility] Famotidine 20 mg 10/01/18 10:00 Pepcid - PO BID [facility] Furosemide 40 mg 10/01/18 10:00 Lasix - PO DAILY [facility] Heparin Sodium (Porcine) 5,000 unit 09/30/18 22:00 10/01/18 06:34 Heparin - SQ 5,000 unit TID [facility] Administration Azithromycin 250 mg/ Dextrose 250 mls @ 250 mls/hr 10/01/18 10:00 IVPB 10/04/18 10:59 DAILY [facility] Insulin Aspart 1 vial 09/30/18 16:30 10/01/18 06:34 Novolog Vial Sliding Scale - SQ 2 units ACHS [facility] Administration Protocol Methylprednisolone Sodium Succinate 40 mg 09/30/18 18:00 10/01/18 01:22 Solu-Medrol - IVPUSH 40 mg Q8H-IV [facility] Administration Nifedipine 30 mg 09/30/18 22:00 09/30/18 21:23 Procardia Xl - PO 30 mg BID [facility] Administration 07/2018 Echo: low normal EF 50-55%, E/A reversal, nl RV, LA severely dilated, interatrial septal aneurysm, mild AR, mod MAC with mild functional MS (3 mmHg), mild pulm HTN Event monitor: [email or web address] with 2:1 block CxR: No acute pulmonary pathology ASSESSMENT/PLAN: 82 year old male with a PMH significant for HTN, HLD, CAD s/p CABG 2004 s/p stents 2018, bradycardia, second degree HB Mobitz Type I, Type II NIDDM, CKD, COPD, and gout. Admitted for COPD exacerbation. *Hypoxic respiratory failure secondary to COPD exacerbation- improving - pul Dr. Talbert following - will cont Solumedrol and Zithromax -will cont on Neb tx - 02 sat 92% on 2L NC - O2 sat 88% on RA, post ambulation * SOB, hx of Coronary artery disease s/p CABG s/p stents -initial troponin 0.1, > 0.06 -ECG: no acute ischemic changes -recent echo- low normal EF 50-55% - cardiology input appreciated by Dr. Johnston/ Dr. Oconnell rec to hold off on BB due to bradycardia - BNP 2002, but appears euvolemic - will resume on home dose PO Lasix -will cont telemetry monitoring -continue ASA, Plavix, Lipitor *Hypertension-BP stable -continue nifedipine and Lasix *Hyperlipidemia -continue Lipitor * Hx of Second degree heart block, Mobitz Type I -stable -telemetry monitoring- no arrhythmias noted *Type II NIDDM -Novolog sliding scale coverage - FS AC& HS - consistent carb diet - will check Hgb Alc * CKD - at baseline * Hx of gout - will resume on Allopurinol * Chronic anemia -CBC stable *FEN Fluids: PO intake adequate Electrolytes: replete as indicated Nutrition: diabetic, low sodium DVT prophylaxis: subq Heparin Dispo: continues to require inpatient care. Full code. Visit type - Emergency Visit Emergency Visit: Yes ED Registration Date: 09/30/18 Care time: The patient presented to the Emergency Department on the above date and was hospitalized for further evaluation of their emergent condition. - New Patient This patient is new to me today: Yes Date on this admission: 10/01/18 - Critical Care Critical Care patient: No
[2018-10-01] MEDS: NIFEdipine E.R. 30 MG TABLET (FP) PO SCH ×2 (09:55→21:16)
[2018-10-01] MEDS ORDERED: FAMOTIDINE 20 MG TABLET PO SCH ×2 (10:00→22:00)
[2018-10-01] MEDS ORDERED: ALLOPURINOL 100 MG TABLET (FP) PO SCH (10:00)
[2018-10-01] MEDS ORDERED: CLOPIDOGREL BISULFATE 75 MG TABLET (FP) PO SCH (10:00)
[2018-10-01] MEDS ORDERED: FUROSEMIDE 40 MG TABLET (FP) PO SCH (10:00)
[2018-10-01] MEDS ORDERED: AZITHROMYCIN IVPB 250 MG in DEXTROSE 5%-WATER - 250 ML IVPB SCH (10:00)
[2018-10-01] MEDS ORDERED: ASPIRIN COATED 81 MG TABLET.EC PO SCH (10:00)
[2018-10-01 10:15] LABS: PLATELET ESTIMATE DECREASED
[2018-10-01] MEDS ORDERED: FUROSEMIDE 20 MG TABLET (FP) PO SCH (14:00)
--- NOTE | 2018-10-01 14:21 | CON.PULM ---
Consult Consult Specialty:: PULM/CCM Referred by:: Hospitalist Reason for Consultation:: SOB - History of Present Illness Chief Complaint: SOB History of Present Illness: 82 M, COPD, suspected asbestosis exposure with a known LLL pleural based opacity (last 03/2018, no change since 2010), HTN, HLD, CAD s/p CABG 2004 s/p stents 2018, bradycardia, second degree HB Mobitz Type I, Type II NIDDM, CKD, and gout. Admitted due to progressive SOB over the past few days. No travel history or sick contacts. No fever or chills. Noted to be hypoxic to the 88% post-ambulation. Start on BD TX, Zithromax, and Lasix. Reports feeling better. He does report at least 2 nocturnal awakenings. He does snore and reports Excessive Daytime Sleepiness (EDS). No clear history of witnessed apneas. - History Source History Provided By: Patient Limitations to Obtaining History: No Limitations - Past Medical History Cardio/Vascular: Yes: HTN, Hyperlipdemia Pulmonary: Yes: Bronchitis, COPD, Pneumonia. 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 Home Medications - Allergies Allergies/Adverse Reactions: Allergies Allergy/AdvReac Type Severity Reaction Status Date / Time No Known Drug Allergies Allergy Verified 09/30/18 12:04 - Home Medications Home Medications: Ambulatory Orders Allopurinol [Zyloprim -] 100 mg PO DAILY tablet 05/01/17 Aspirin Coated [Ecotrin -] 81 mg PO DAILY tablet.ec 05/01/17 Furosemide [Lasix -] 40 mg PO DAILY tablet 05/01/17 Nifedipine ER [Procardia XL -] 30 mg PO BID tab.er.24 05/01/17 Carvedilol [Coreg -] 6.25 mg PO BID 01/31/18 Clopidogrel Bisulfate [Plavix] 75 mg PO DAILY 01/31/18 Methotrexate [Mexate -] 0 mg PO Q7D 01/31/18 Sitagliptin Phosphate [Januvia] 50 mg PO DAILY 01/31/18 Atorvastatin Ca [Lipitor] 80 mg PO HS 09/30/18 Famotidine 40 mg PO DAILY 09/30/18 Review of Systems - Review of Systems Constitutional: reports: Malaise. denies: Chills, Fever, Night Sweats Eyes: reports: No Symptoms HENT: reports: No Symptoms Neck: reports: No Symptoms Cardiovascular: reports: Shortness of Breath. denies: Chest Pain, Edema, Palpitations Respiratory: reports: Cough, Snoring, SOB, SOB on Exertion, Wheezing. denies: Hemoptysis Gastrointestinal: reports: No Symptoms Genitourinary: reports: No Symptoms Breasts: reports: No Symptoms Reported Musculoskeletal: reports: No Symptoms Integumentary: reports: No Symptoms Neurological: reports: No Symptoms Endocrine: reports: No Symptoms Hematology/Lymphatic: reports: No Symptoms Psychiatric: reports: No Symptoms Physical Exam Vital Sings: Vital Signs Temperature 98.1 F 10/01/18 10:12 Pulse Rate 52 L 10/01/18 10:12 Respiratory Rate 10/01/18 10:12 Blood Pressure 140/49 L 10/01/18 10:12 O2 Sat by Pulse Oximetry (%) 95 10/01/18 10:12 Constitutional: Yes: No Distress, Calm Eyes: Yes: Conjunctiva Clear, EOM Intact HENT: Yes: Atraumatic, Normocephalic Neck: Yes: Supple, Trachea Midline Cardiovascular: Yes: Regular Rate and Rhythm Respiratory: Yes: Cough, Diminished, On Nasal O2, Wheezes. No: Accessory Muscle Use, SOB, SOB on Exertion, Stridor, Tachypnea ...Inspection: Yes: WNL ...Clubbing: No Gastrointestinal: Yes: Normal Bowel Sounds, Soft Renal/: Yes: WNL Musculoskeletal: Yes: WNL Extremities: Yes: WNL Edema: No Peripheral Pulses WNL: Yes Integumentary: Yes: WNL Neurological: Yes: WNL, Alert, Oriented ...Motor Strength: WNL Psychiatric: Yes: WNL, Alert, Oriented Labs: CBC, BMP 10/01/18 08:00 10/01/18 08:00 Imaging - Results Chest X-ray: Report Reviewed, Image Reviewed Cat Scan: Report Reviewed, Image Reviewed Problem List - Problems (1) Acute bronchitis Code(s): J20.9 - ACUTE BRONCHITIS, UNSPECIFIED (2) AV block, Mobitz 1 Code(s): I44.1 - ATRIOVENTRICULAR BLOCK, SECOND DEGREE (3) Elevated troponin I level Code(s): R74.8 - ABNORMAL LEVELS OF OTHER SERUM ENZYMES (4) S/P CABG (coronary artery bypass graft) Code(s): Z95.1 - PRESENCE OF AORTOCORONARY BYPASS GRAFT (5) Coronary artery disease Code(s): I25.10 - ATHSCL HEART DISEASE OF [place] CORONARY ARTERY W/O ANG PCTRS (6) Diabetes mellitus Code(s): E11.9 - TYPE 2 DIABETES MELLITUS WITHOUT COMPLICATIONS Qualifiers: Diabetes mellitus type: type 2 Diabetes mellitus complication status: without complication (7) Diastolic congestive heart failure Code(s): I50.30 - UNSPECIFIED DIASTOLIC (CONGESTIVE) HEART FAILURE Qualifiers: Heart failure chronicity: acute on chronic Qualified Code(s): I50.33 - Acute on chronic diastolic (congestive) heart failure (8) Dyspnea Code(s): R06.00 - DYSPNEA, UNSPECIFIED Qualifiers: Dyspnea type: shortness of breath Qualified Code(s): R06.02 - Shortness of breath; R06.00 - Dyspnea, unspecified; R06.01 - Orthopnea (9) Gout Code(s): M10.9 - GOUT, UNSPECIFIED (10) HLD (hyperlipidemia) Code(s): E78.5 - HYPERLIPIDEMIA, UNSPECIFIED (11) HTN (hypertension) Code(s): I10 - ESSENTIAL (PRIMARY) HYPERTENSION (12) Lung consolidation Code(s): J18.1 - LOBAR PNEUMONIA, UNSPECIFIED ORGANISM (13) Osteoarthritis of left knee Code(s): M17.9 - OSTEOARTHRITIS OF KNEE, UNSPECIFIED (14) Pulmonary hypertension Code(s): I27.2 - OTHER SECONDARY PULMONARY HYPERTENSION * DO NOT USE * (15) Rheumatoid arthritis Code(s): M06.9 - RHEUMATOID ARTHRITIS, UNSPECIFIED Assessment/Plan Medrol BD TX Noted Zithromax O2 as needed No smoking counseled VTE prophylaxis Lasix If clinically improved in AM and does not desaturate post-ambulation, there is no Pulmonary contraindication fro DC planning with follow up with Dr Talbert in the office. Can DC with Prednisone 40mg OD X 5 days, PO Zithromax to complete 3 days, and continuation of home medications. Should have sleep apnea screening/evaluation after discharge. Thank you. Dr Petersen
[2018-10-01] MEDS: ATORVASTATIN CA 80 MG TABLET (FP) PO SCH (21:16)
[2018-10-01] MEDS ORDERED: diphenhydrAMINE HCL 25 MG CAPSULE (FP) PO ONE (21:35)
[2018-10-01] MEDS ORDERED: MAG HYDROX/AL HYDROX/SIMETH 30 ML UNIT-DOSE CUP PO PRN (22:11)
[2018-10-02] MEDS: methylPREDNISolone NA SUCC 40 MG/1 ML VIAL IVPUSH SCH (01:16)
[2018-10-02] MEDS: HEPARIN NA (PORCINE) 5,000 UNITS/ML 1ML VIAL SQ SCH (05:37)
[2018-10-02] MEDS ORDERED: FUROSEMIDE 40 MG TABLET (FP) PO SCH (06:00)
[2018-10-02] MEDS: INSULIN SLIDING SCALE (NOVOLOG) 1 VIAL SQ SCH (06:32)
--- NOTE | 2018-10-02 08:02 | PN ---
Progress Note, Physician Chief Complaint: sob History of Present Illness: pt easily excitable when giving history, somewhat tangential. states at home he: 1) sometimes wakes up sob (? GORAN) 2) sometimes feels restless/uncomfortable when lays down in bed (WHILE AWAKE). however he states his mind is always racing, always worrying about every little sound he hears in the house, thinks this may be why he feels that way. doesn't admit to over sob when laying in bed. he also states he definitely was more sob on DOA during the day than usual. all has resolved here. ambulated yest without O2, no sob and sats 94% per d/w RN no cp, no palpitations, no presyn/syncope no cigs - Current Medication List Current Medications: Active Medications Al Hydroxide/Mg Hydroxide (Mylanta Oral Suspension -) 30 ml PO Q6H PRN PRN Reason: DYSPEPSIA Last Admin: 10/01/18 22:19 Dose: 30 ml Albuterol Sulfate (Ventolin 0.083% Nebulizer Soln -) 1 amp NEB Q4H PRN PRN Reason: SHORT OF BREATH/WHEEZING Albuterol/Ipratropium (Duoneb -) 1 amp NEB RTID [facility] Last Admin: 10/01/18 20:45 Dose: 1 amp Allopurinol (Zyloprim -) 100 mg PO DAILY [facility] Last Admin: 10/01/18 09:55 Dose: 100 mg Aspirin (Ecotrin -) 81 mg PO DAILY [facility] Last Admin: 10/01/18 09:55 Dose: 81 mg Atorvastatin Calcium (Lipitor -) 80 mg PO HS [facility] Last Admin: 10/01/18 21:16 Dose: 80 mg Clopidogrel Bisulfate (Plavix -) 75 mg PO DAILY [facility] Last Admin: 10/01/18 09:54 Dose: 75 mg Famotidine (Pepcid -) 20 mg PO BID [facility] Last Admin: 10/01/18 21:16 Dose: 20 mg Furosemide (Lasix -) 20 mg PO DAILY@1400 [facility] Last Admin: 10/01/18 17:56 Dose: 20 mg Furosemide (Lasix -) 40 mg PO DAILY@0600 [facility] Last Admin: 10/02/18 05:38 Dose: 40 mg Heparin Sodium (Porcine) (Heparin -) 5,000 unit SQ TID [facility] Last Admin: 10/02/18 05:37 Dose: 5,000 unit Azithromycin 250 mg/ Dextrose 250 mls @ 250 mls/hr IVPB DAILY [facility] Stop: 10/04/18 10:59 Last Admin: 10/01/18 10:02 Dose: 250 mls/hr Insulin Aspart (Novolog Vial Sliding Scale -) 1 vial SQ ACHS [facility]; Protocol Last Admin: 10/02/18 06:32 Dose: 4 units Methylprednisolone Sodium Succinate (Solu-Medrol -) 40 mg IVPUSH Q8H-IV [facility] Last Admin: 10/02/18 01:16 Dose: 40 mg Nifedipine (Procardia Xl -) 30 mg PO BID [facility] Last Admin: 10/01/18 21:16 Dose: 30 mg - Objective Vital Signs: Vital Signs Temperature 97.0 F L 10/02/18 06:00 Pulse Rate 69 10/02/18 06:00 Respiratory Rate 18 10/02/18 06:00 Blood Pressure 127/43 L 10/02/18 06:00 O2 Sat by Pulse Oximetry (%) 94 L 10/02/18 06:45 Constitutional: Yes: No Distress, Calm Eyes: No: Sclera Icterus HENT: No: Nasal Congestion Cardiovascular: Yes: Regular Rate and Rhythm, JVD (probable 4 cm), S1, S2, Other (PMI non diplaced). No: Gallop, Murmur Respiratory: Yes: CTA Bilaterally. No: Accessory Muscle Use, Rales, Wheezes Gastrointestinal: Yes: Normal Bowel Sounds, Soft. No: Tenderness Musculoskeletal: Yes: Other (No kyphosis) Extremities: No: Cold Edema: No Integumentary: No: Jaundice Neurological: Yes: Alert, Oriented (x3) Psychiatric: No: Agitated Labs: CBC, BMP 10/01/18 08:00 10/01/18 08:00 INR, PTT INR 1.15 (0.82-1.09) 09/30/18 12:10 Assessment/Plan CXR: increased L parahilar markings ? sec to shallow inspiration vs early infiltrate Echo 07/2018 sinus with first deg AVB and wenckebach, tds, low normal EF 50-55%, E/A reversal, nl RV, LA severely dilated, interatrial septal aneurysm, mild AR, mod MAC with mild functional MS (3 mmHg), mild pulm HTN Event monitor: [email or web address] with episodes of wenckebach with 2:1 block Cath 05/2017 [facility] [place] (staged intervention - part 2): LVEDP 15. prca 80-90% --> rotational atherectomy/PTCA/CASSIDY, mRCA 80-90% --> rotational atherectomy/PTCA/CASSIDY , dRCA 90-95% -->rotational atherectomy/PTCA/CASSIDY. RPDA mild dz, AV continuation 90-95% --> rotational atherectomy/CASSIDY. SVG to prox OM1 patent with patent stent as well. tele: sinus gail with Mobitz 1 second degr AV block, 2:1 AVB overnight hours, junctional escape beats overnight hours. SOB/orthopnea/PND, h/o COPD: - troponins flat, indeterminate range, ECG no ischemia--not suspicious for UA/ ACS - BNP 2K (baseline 500-1K)--low GFR confounds. CXR no congestion. - suspect mild JVD on exam today. sx's resolved. - cont lasix 40 am, 20 in afternoon--if today's creatinine comes back stable near his range (up to 1.6 at baseline), he should go home on this dose and f/u with dr harvey 1-2 weeks. - no fever or white count, no cough/phlegm/wheeze. sats 91-92% on RA. responding to copd tx--to continue as outpt per pulm rec.s - rec outpt sleep study (also in light of signif hi vagal tone findings on cardiac telem data) CAD, s/p CABG with subsequent PCI of SVG to OM1, mult CASSIDY to [place] RCA (graft occluded): - no signs acute ischemia here - cont home regimen DAPT, hi intensity statin - has tolerated carvedilol low dose long time per pt, with known Mobitz 1 physiology. no pathological bradyarrhythmia on tele here--cont same. HTN: - bp controlled - cont home meds for now CKD: -baseline creat 1.3-1.6 -stable here
[2018-10-02] MEDS: ALBUTEROL SO4 2.5/IPRATROPIUM 0.5 INH SOL 3 ML VIAL.NEB. NEB SCH (08:37)
[2018-10-02 09:20] VITALS: BP 134/46; PULSE 66; TEMP 97.9
[2018-10-02 09:31] LABS: ALBUMIN 3.7 g/dl (3.4-5.0); BILIRUBIN,TOTAL 0.3 mg/dl (0.2-1); CALCIUM 8.9 mg/dl (8.5-10); CREATININE 1.8 mg/dl (0.55-1.3); TOT PROT 6.3 g/dl (6.4-8.2)
--- NOTE | 2018-10-02 10:15 | DS ---
Physical Exam: SUBJECTIVE: Patient seen and examined, feeling well, ambulated on unit, no SOB, chest pain seen by Cardio, creat 1.8 ok for dc with lasix dose as instructed, pt to follow up with Cardio 2-3 days for repeat labs family at bedside. OBJECTIVE: Vital Signs Period Temp Pulse Resp BP Sys/Downs Pulse Ox Last 24 Hr 97.0 F-98.6 F 52-73 18-19 123-144/42-49 92-96 PHYSICAL EXAM GENERAL: The patient is awake, alert, and fully oriented, in no acute distress. HEAD: Normal with no signs of trauma. EYES: PERRL, extraocular movements intact, sclera anicteric, conjunctiva clear. ENT: Ears normal, nares patent, oropharynx clear without exudates, moist mucous membranes. NECK: Trachea midline, full range of motion, supple. LUNGS: Breath sounds equal, clear to auscultation bilaterally, no wheezes, no crackles, no accessory muscle use. HEART: Regular rate and rhythm, S1, S2 without murmur, rub or gallop. ABDOMEN: Soft, nontender, nondistended, normoactive bowel sounds, no guarding, no rebound, no hepatosplenomegaly, no masses. EXTREMITIES: 2+ pulses, warm, well-perfused, no edema. NEUROLOGICAL: Cranial nerves II through XII grossly intact. Normal speech, gait not observed. PSYCH: Normal mood, normal affect. SKIN: Warm, dry, normal turgor, no rashes or lesions noted. LABS Laboratory Results - last 24 hr 10/01/18 10/01/18 10/01/18 08:00 08:00 11:11 Neutrophils % (Manual) 91.0 H* Lymphocytes % (Manual) 8.0 Monocytes % (Manual) 1 L Platelet Estimate Decreased Sodium Potassium Chloride Carbon Dioxide Anion Gap BUN Creatinine Est GFR (CKD-EPI)AfAm Est GFR (CKD-EPI)NonAf POC Glucometer 271 Random Glucose Hemoglobin A1c % 6.3 Calcium Total Bilirubin AST ALT Alkaline Phosphatase Total Protein Albumin 10/01/18 10/01/18 10/02/18 16:04 20:57 06:21 Neutrophils % (Manual) Lymphocytes % (Manual) Monocytes % (Manual) Platelet Estimate Sodium Potassium Chloride Carbon Dioxide Anion Gap BUN Creatinine Est GFR (CKD-EPI)AfAm Est GFR (CKD-EPI)NonAf POC Glucometer 301 173 207 Random Glucose Hemoglobin A1c % Calcium Total Bilirubin AST ALT Alkaline Phosphatase Total Protein Albumin 10/02/18 09:00 Neutrophils % (Manual) Lymphocytes % (Manual) Monocytes % (Manual) Platelet Estimate Sodium 137 Potassium 5.0 Chloride 102 Carbon Dioxide 25 Anion Gap 10 BUN 60.0 H Creatinine 1.8 H Est GFR (CKD-EPI)AfAm 39.18 Est GFR (CKD-EPI)NonAf 33.81 POC Glucometer Random Glucose 267 H Hemoglobin A1c % Calcium 8.9 Total Bilirubin 0.3 AST 42 H ALT 53 Alkaline Phosphatase 42 L Total Protein 6.3 L Albumin 3.7 HOSPITAL COURSE: Date of Admission:09/30/18 Date of Discharge: 10/02/18 82 year old male with a PMH significant for HTN, HLD, CAD s/p CABG 2003 s/p stents 2018, bradycardia, second degree HB Mobitz Type I, Type II NIDDM, CKD, COPD, and gout. Admitted for COPD exacerbation. *Hypoxic respiratory failure secondary to COPD exacerbation- improving - pul Dr. Talbert following - dc with Zithromax 500mg x 3 days, prednisone 40 mg daily x 5 days, - 02 sat 92% on 2L NC - O2 sat 88% on RA, post ambulation * SOB, hx of Coronary artery disease s/p CABG s/p stents -initial troponin 0.1, > 0.06 -ECG: no acute ischemic changes -recent echo- low normal EF 50-55% - cardiology input appreciated by Dr. Johnston/ Dr. Oconnell rec to hold off on BB due to bradycardia - BNP 2002, but appears euvolemic - dc with Lasix 40mg AM, 20mg in afternoon -cret 1.8 ok for DC, (d/w -will cont telemetry monitoring -continue ASA, Plavix, Lipitor *Hypertension-BP stable -continue nifedipine and Lasix *Hyperlipidemia -continue Lipitor * Hx of Second degree heart block, Mobitz Type I -stable -telemetry monitoring- no arrhythmias noted *Type II NIDDM -Novolog sliding scale coverage - FS AC& HS - consistent carb diet - will check Hgb Alc * CKD - at baseline * Hx of gout -on Allopurinol * Chronic anemia -CBC stable Minutes to complete discharge: 35 Discharge Summary Reason For Visit: SHORTNESS OF BREATH/ELEVATED TROPONIN LEVEL Current Active Problems AV block, Mobitz 1 (Acute) Acute bronchitis (Acute) Elevated troponin I level (Acute) S/P CABG (coronary artery bypass graft) (Acute) - Instructions Diet, Activity, Other Instructions: please take Prednisone 40 mg daily x 5 days Lasix as instructed 40mg in AM and 20 mg in the afternoon Follow up with cardio 2-3 days to repeat labs and Pulm 1 week. Disposition: HOME - Home Medications Comprehensive Discharge Medication List: Ambulatory Orders Allopurinol [Zyloprim -] 100 mg PO DAILY tablet 05/01/17 Aspirin Coated [Ecotrin -] 81 mg PO DAILY tablet.ec 05/01/17 Furosemide [Lasix -] 40 mg PO DAILY tablet 05/01/17 Nifedipine ER [Procardia XL -] 30 mg PO BID tab.er.24 05/01/17 Carvedilol [Coreg -] 6.25 mg PO BID 01/31/18 Clopidogrel Bisulfate [Plavix] 75 mg PO DAILY 01/31/18 Methotrexate [Mexate -] 0 mg PO Q7D 01/31/18 Sitagliptin Phosphate [Januvia] 50 mg PO DAILY 01/31/18 Atorvastatin Ca [Lipitor] 80 mg PO HS 09/30/18 Famotidine 40 mg PO DAILY 09/30/18 Azithromycin [Zithromax [place] (3 DAYS) -] 500 mg PO DAILY #3 tablet 10/02/18 Furosemide [Lasix -] 20 mg PO DAILY@1400 tablet 10/02/18 Prednisone [Deltasone] 40 mg PO DAILY 5 Days #10 tablet 10/02/18 This patient is new to me today: Yes Date on this admission: 10/02/18 Emergency Visit: Yes ED Registration Date: 09/30/18 Care time: The patient presented to the Emergency Department on the above date and was hospitalized for further evaluation of their emergent condition. Critical Care patient: No - Discharge Referral Referred to [facility] No
--- NOTE | 2018-10-02 11:42 | EKG ---
Test Reason : Blood Pressure : / mmHG Vent. Rate : 058 BPM Atrial Rate : 087 BPM P-R Int : 000 ms QRS Dur : 104 ms QT Int : 460 ms P-R-T Axes : 000 001 052 degrees QTc Int : 451 ms SINUS RHYTHM WITH 2ND DEGREE A-V BLOCK (MOBITZ I) INFERIOR INFARCT (CITED ON OR BEFORE 07-JUL-2016) ANTEROSEPTAL INFARCT (CITED ON OR BEFORE 07-JUL-2016) ABNORMAL ECG WHEN COMPARED WITH ECG OF 31-JAN-2018 14:44, FUSION COMPLEXES ARE NO LONGER PRESENT PREMATURE VENTRICULAR COMPLEXES ARE NO LONGER PRESENT T WAVE INVERSION NO LONGER EVIDENT IN INFERIOR LEADS NONSPECIFIC T WAVE ABNORMALITY NO LONGER EVIDENT IN LATERAL LEADS Confirmed by LISANDRO JAUREGUI, RAS ([id number]) on 10/02/2018 11:41:25 AM Referred By: Confirmed By:RAS MCMAHON MD
== END 2018-10-02 10:30 | disposition home or self-care (01) | DRG 190 ==
LOC: FER 11:57 → FM/S 13:46
PROVIDERS: ADMIT Internal Medicine; ATTEND Nurse Practitioner Family
DX: J44.1 Chronic obstructive pulmonary disease with (acute) exacerbation (principal); J96.91 Respiratory failure, unspecified with hypoxia; I50.30 Unspecified diastolic (congestive) heart failure; I13.0 Hypertensive heart and chronic kidney disease with heart failure and stage 1 through stage 4 chronic kidney disease, or unspecified chronic kidney disease; J44.9 Chronic obstructive pulmonary disease, unspecified; E11.9 Type 2 diabetes mellitus without complications; N18.9 Chronic kidney disease, unspecified; I44.1 Atrioventricular block, second degree; I25.10 Atherosclerotic heart disease of native coronary artery without angina pectoris; J61 Pneumoconiosis due to asbestos and other mineral fibers; E78.5 Hyperlipidemia, unspecified; Z95.1 Presence of aortocoronary bypass graft; Z98.61 Coronary angioplasty status; R00.1 Bradycardia, unspecified; J20.9 Acute bronchitis, unspecified; I27.20 Pulmonary hypertension, unspecified
CPT/HCPCS: 36415; 71045-TC-FY; 80053; 82550; 82962; 83036; 83735; 83880; 84484; 85025; 85610; 85730; 93005; 94640; 99284-25; J1100; J1644

== ENCOUNTER 2018-10-15 16:23 | Inpatient (IN) | payer OTHER ==
[2018-10-15] MEDS ORDERED: ALBUTEROL SO4 2.5/IPRATROPIUM 0.5 INH SOL 3 ML VIAL.NEB. NEB ONE ×3 (16:25→20:32)
--- NOTE | 2018-10-15 16:25 | PDOC ---
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 The patient denies any fever, cough, congestion, chest pain, nausea, vomiting, abdominal pain, diarrhea, constipation, dysuria, hematuria or worse than baseline leg swelling. The patient reports he went to his PCP last week without significant findings. He has a follow up appointment with PCP Dr. Kaminski next week. Daughter: Annette: [phone] ROS GENERAL/CONSTITUTIONAL: No fever or chills. No weakness. HEAD, EYES, EARS, NOSE AND THROAT: No change in vision. No ear pain or discharge. No sore throat. CARDIOVASCULAR: No chest pain or shortness of breath RESPIRATORY: No cough, wheezing, or hemoptysis. GASTROINTESTINAL: No nausea, vomiting, diarrhea or constipation. GENITOURINARY: No dysuria, frequency, or change in urination. MUSCULOSKELETAL: No joint or muscle swelling or pain. No neck or back pain. SKIN: No rash NEUROLOGIC: No headache, vertigo, loss of consciousness, or change in strength/ sensation. PE GENERAL: Awake, alert, and fully oriented, in no acute distress HEAD: No signs of trauma, normocephalic, atraumatic EYES: EOMI, sclera anicteric, conjunctiva clear ENT: oropharynx clear without exudates. Moist mucosa NECK: Normal ROM, supple LUNGS: No distress, speaks full sentences, coarse breath sounds on R lung throughout, L base HEART: Regular rate and rhythm, normal S1 and S2, no murmurs, rubs or gallops, peripheral pulses normal and equal bilaterally. ABDOMEN: Soft, nontender, normoactive bowel sounds. No guarding, no rebound. No masses EXTREMITIES : Normal inspection, Normal range of motion, no edema. No clubbing or cyanosis. NEUROLOGICAL: Cranial nerves II through XII grossly intact. Normal speech, no focal sensorimotor deficits SKIN: Warm, Dry, normal turgor, no rashes or lesions noted MDM DDX including but not limited to: arrythmia hyperthyroidism infectious W/U: - cbc, cmp, trop, bnp, ekg, cxr, tsh, ua TX: - ED Course: ek bpm a flutter new a flutter as compared to prior Antonia Holloway PGY2 Emergency Medicine <Antonia Holloway - Last Filed: 10/15/18 16:42> <Kane White - Last Filed: 10/15/18 18:55> - General Chief Complaint: Shortness of Breath Stated Complaint: SOB Past History - Past Medical History Anemia: No Asthma: No Cancer: No Cardiac Disorders: Yes (s/p cabg 2003) CVA: No COPD: No CHF: No Dementia: No Diabetes: Yes GI Disorders: No Disorders: No HTN: Yes Hypercholesterolemia: Yes Kidney Stones: Yes Liver Disease: No Seizures: No Thyroid Disease: No - Surgical History Abdominal Surgery: No Appendectomy: No Cardiac Surgery: Yes (CABG X 3-LAST STRESS TEST 1 MONTH AGO) Cholecystectomy: No Lung Surgery: No Neurologic Surgery: No Orthopedic Surgery: Yes (RIGHT KNEE REPLACEMENT 2011) - Suicide/Smoking/Psychosocial Hx Smoking Status: No Smoking History: Never smoked Have you smoked in the past 12 months: No Number of Cigarettes Smoked Daily: 0 Hx Alcohol Use: No Drug/Substance Use Hx: No Substance Use Type: None Hx Substance Use Treatment: No <Antonia Holloway - Last Filed: 10/15/18 16:42> <Kane White - Last Filed: 10/15/18 18:55> - Past Medical History Allergies/Adverse Reactions: Allergies Allergy/AdvReac Type Severity Reaction Status Date / Time No Known Drug Allergies Allergy Verified 10/15/18 16:25 Home Medications: Ambulatory Orders Albuterol Sulfate Inhaler - [Ventolin Hfa Inhaler -] 2 inh PO Q4H PRN 10/15/18 Allopurinol [Zyloprim -] 100 mg PO DAILY 10/15/18 Atorvastatin Ca [Lipitor] 80 mg PO DAILY 10/15/18 Carvedilol [Coreg -] 3.125 mg PO BID 10/15/18 Clopidogrel Bisulfate [Clopidogrel] 75 mg PO DAILY 10/15/18 Famotidine [Pepcid] 40 mg PO DAILY 10/15/18 Folic Acid 1 mg PO DAILY 10/15/18 Furosemide 40 mg PO DAILY 10/15/18 Methotrexate Sodium [Methotrexate] 2.5 mg PO Q7D 10/15/18 Nifedipine ER [Procardia Xl -] 30 mg PO BID 10/15/18 Sitagliptin Phosphate [Januvia] 50 mg PO DAILY 10/15/18 *Physical Exam - Vital Signs Last Vital Signs Temp Pulse Resp BP Pulse Ox 98 F 62 24 H 150/76 95 10/15/18 18:43 10/15/18 18:43 10/15/18 18:43 10/15/18 18:43 10/15/18 18:43 <Kane White - Last Filed: 10/15/18 18:55> ED Treatment Course - LABORATORY CBC & Chemistry Diagram: 10/15/18 17:00 10/15/18 17:00 - ADDITIONAL ORDERS Additional order review: Laboratory Results 10/15/18 10/15/18 10/15/18 17:52 17:52 17:30 PT with INR 14.2 H INR 1.27 H PTT (Actin FS) 30.8 VBG pH POC VBG pCO2 POC VBG pO2 VBG HCO3 VBG O2 Sat (Zara) VBG Base Excess Sodium Potassium Chloride Carbon Dioxide Anion Gap BUN Creatinine Est GFR (CKD-EPI)AfAm Est GFR (CKD-EPI)NonAf Random Glucose Calcium Total Bilirubin AST ALT Alkaline Phosphatase Troponin I Total Protein Albumin TSH Urine Color Yellow Urine Appearance Clear Urine pH 5.0 Urine Protein 2+ H Urine Glucose (UA) Negative Urine Ketones Negative Urine Blood Negative Urine Nitrite Negative Urine Bilirubin Negative Urine Urobilinogen 0.2 Ur Leukocyte Esterase Negative Urine RBC 2-5 Urine WBC 0-2 Ur Transition Epith Cell Rare 10/15/18 10/15/18 10/15/18 17:15 17:00 17:00 PT with INR INR PTT (Actin FS) VBG pH 7.30 L POC VBG pCO2 54.4 H POC VBG pO2 < 49 H VBG HCO3 26.5 VBG O2 Sat (Zara) 61.9 L VBG Base Excess 0 Sodium 140 Potassium 5.2 H Chloride 109 H Carbon Dioxide 25 Anion Gap 6 L BUN 41.0 H Creatinine 1.5 H Est GFR (CKD-EPI)AfAm 48.85 Est GFR (CKD-EPI)NonAf 42.14 Random Glucose 95 Calcium 8.6 Total Bilirubin 0.6 AST 23 ALT 26 Alkaline Phosphatase 36 L Troponin I 0.05 Total Protein 6.1 L Albumin 3.4 TSH Cancelled Urine Color Urine Appearance Urine pH Urine Protein Urine Glucose (UA) Urine Ketones Urine Blood Urine Nitrite Urine Bilirubin Urine Urobilinogen Ur Leukocyte Esterase Urine RBC Urine WBC Ur Transition Epith Cell 10/15/18 17:00 RBC 3.35 L MCV 99.6 H MCHC 33.5 RDW 15.9 MPV 8.6 Neutrophils % 86.9 H Lymphocytes % 8.0 D Monocytes % 2.5 L Eosinophils % 2.0 Basophils % 0.6 - Medications Given in the ED: ED Medications Discontinued Medications Generic Name Dose Route Start Last Admin Trade Name Reginaldo PRN Reason Stop Dose Admin Albuterol/Ipratropium 1 amp 10/15/18 16:25 10/15/18 17:01 Duoneb - NEB 10/15/18 16:26 Not Given ONCE ONE Furosemide 40 mg 10/15/18 18:32 10/15/18 18:42 Lasix Injection - IVPUSH 10/15/18 18:33 40 mg ONCE ONE Administration <Kane White - Last Filed: 10/15/18 18:55> *DC/Admit/Observation/Transfer <Antonia Holloway - Last Filed: 10/15/18 16:42> - Discharge Dispostion Decision to Admit order: Yes <Kane White - Last Filed: 10/15/18 18:55> Diagnosis at time of Disposition: CHF (congestive heart failure) Qualifiers: Heart failure type: unspecified Heart failure chronicity: acute Qualified Code( s): I50.9 - Heart failure, unspecified Atrial flutter Qualifiers: Atrial flutter type: unspecified Qualified Code(s): I48.92 - Unspecified atrial flutter - Discharge Dispostion Condition at time of disposition: Guarded - Referrals Referrals: Lalit Kaminski MD [Primary Care Provider] - - Patient Instructions - Post Discharge Activity
--- NOTE | 2018-10-15 16:37 | PDOC ---
Attending Attestation - Resident Resident Name: Antonia Holloway - ED Attending Attestation I have performed the following: I have examined & evaluated the patient, The case was reviewed & discussed with the resident, I agree w/resident's findings & plan, Exceptions are as noted - HPI HPI: 10/15/18 16:36 83y M hx of cad (sp CABG, PCI), copd, htn, hl, ckd, presenst with sob for the past 3 days - pt notse the sob is worse when he is sleeping/laying down and better when he is up and about, but with exertion he does note he is more sob than usual. pts baseline O2 is around 92 on RA. pt denies any chest pain, fever , cough, hemoptysis, n/v, abd pain, back pain. pt has chronic LE edema and that has not changed. denies calf pain. PMD: Dr. Yamilex Moreno: Dr. Talbert Card: Dr. Johnston - Physicial Exam PE: 10/15/18 17:31 GENERAL: The patient is awake, alert, and fully oriented, Nontoxic - in no acute distress. HEAD: Normocephalic, atraumatic. EYES: extraocular movements intact, sclera anicteric, conjunctiva clear. ENT: Normal voice, Moist mucous membranes. NECK: Normal range of motion, supple LUNGS: Breath sounds equal, clear to auscultation bilaterally. No wheezes, no rhonchi, no rales. HEART: Regular rate and rhythm, ABDOMEN: Soft, nontender, No guarding, no rebound. No CVA tenderness EXTREMITIES: Normal range of motion, + pitting edema b/l, no calf tenderness, neg homans b/l NEUROLOGICAL: No facial assymetry, Normal speech, PSYCH: Normal mood, normal affect. SKIN: Warm, Dry, normal turgor, - Medical Decision Making 10/15/18 17:34 ekg noted for aflutter symptoms suggestive of chf - unclear cause - will ck TSH, will r/o acs pt placed on cardiac cath lab manager pt hypoxic -placed on supplemental o2 anticipate admission 10/15/18 18:54 pt written for eliquis for a/c per cardiology pt remains rate controlled and felling asymptmoatic case dw with connor HOWARD, agreed wt admission to dr. christopher service
[2018-10-15 17:18] LABS: BASO % 0.6 % (0-2.0); HEMATOCRIT 33.3 % (35.4-49); HEMOGLOBIN 11.2 GM/dl (11.7-16.9); MCH 33.4 pg (25.7-33.7); MCHC 33.5 g/dl (32.0-35.9); MEAN CELL VOLUME 99.6 fl (80-96); MEAN PLT VOLUME 8.6 fl (7.5-11.1); MONO % 2.5 % (3.8-10.2); NEUT % 86.9 % (42.8-82.8); PLATELET COUNT 125 K/MM3 (134-434); RBC 3.35 M/mm3 (4.00-5.60); RDW 15.9 % (11.9-15.9); WHITE BLOOD COUNT 11.3 K/mm3 (4.0-10.8)
[2018-10-15 17:35] LABS: ALBUMIN 3.4 g/dl (3.4-5.0); BILIRUBIN,TOTAL 0.6 mg/dl (0.2-1); CALCIUM 8.6 mg/dl (8.5-10); CREATININE 1.5 mg/dl (0.55-1.3); POTASSIUM 5.2 mmol/L (3.5-5.1); TOT PROT 6.1 g/dl (6.4-8.2)
[2018-10-15] MEDS ORDERED: FUROSEMIDE 40 MG/4 ML INJECTABLE VIAL IVPUSH ONE ×2 (17:54→18:32)
[2018-10-15 18:27] LABS: EPITHELIAL CELLS RARE /hpf
[2018-10-15 18:29] LABS: INR 1.27 (0.82-1.09); PROTHROMBIN TIME (PATIENT) 14.2 SEC (10.2-13.0)
[2018-10-15] MEDS ORDERED: FUROSEMIDE 40 MG/4 ML INJECTABLE VIAL ONE (18:37)
[2018-10-15 18:46] LABS: VENOUS PC02 54.4 mmHg (38-52); VENOUS PO2 < 49 mmHg (28-48)
[2018-10-15 19:02] LABS: N-TERMINAL BNP 6164.4 pg/ml (5-450)
[2018-10-15] MEDS ORDERED: APIXABAN 2.5 MG TABLET PO STA (19:53)
--- NOTE | 2018-10-15 20:01 | HP ---
CHIEF COMPLAINT: shortness of breath for 3 days PCP: Dr. Luna Meteorology Teacher: DFr. Luna Flexographic Press Plate Setter: Dr. Hernandez HISTORY OF PRESENT ILLNESS: 83 year old male with past medical history of coronary artery disease with CABG 2003 at [facility] (ZEE-LAD, SVG-OM, SVG-PDA/drca), hypertension with diastolic dysfunction, severe pHTN with mild-mod RV dilation, MAC with mild functional MS, mild-mod MR, AV delay/wenckebach/bradycardia, varicose veins, NIDDM, mild ckd (baseline cr 1.3-1.5) gout, OA, and COPD(not home oxygen dependent)who presents with symptoms of shortness of breath for the past 3 days. He denied exertional chest pain, dizziness, palpitations, fever, orthopnea or PND. He reported he sleeps on 1 pillow. Upon evaluation he was found to have a normal troponin, BNP 6064 and CXR demonstrated pulmonary vascular congestion. EKG revealed atrial flutter 62 bpm. ER course was notable for: (1)elevated BNP and CXR with fluid overload, lasix 40 IVP given (2)new onset atrial flutter- rate controlled in the 60's, Eliquis 2.5mg po BID initiated (3)leukocytosis, afebrile, UA negative Recent Travel: denies PAST MEDICAL HISTORY: coronary artery disease with CABG and stent may 2017 COPD(not home oxygen dependent) hypertension chronic kidney disease PAST SURGICAL HISTORY: CABG Social History: Smoking:no Alcohol:no Drugs: no Family History: noncontributory Allergies No Known Drug Allergies Allergy (Verified 10/15/18 16:25) HOME MEDICATIONS: Home Medications Medication Instructions Recorded Albuterol Sulfate Inhaler - 2 inh PO Q4H PRN 10/15/18 [Ventolin Hfa Inhaler -] Allopurinol [Zyloprim -] 100 mg PO DAILY 10/15/18 Atorvastatin Ca [Lipitor] 80 mg PO DAILY 10/15/18 Carvedilol [Coreg -] 3.125 mg PO BID 10/15/18 Clopidogrel Bisulfate [Clopidogrel] 75 mg PO DAILY 10/15/18 Famotidine [Pepcid] 40 mg PO DAILY 10/15/18 Folic Acid 1 mg PO DAILY 10/15/18 Furosemide 40 mg PO DAILY 10/15/18 Methotrexate Sodium [Methotrexate] 2.5 mg PO Q7D 10/15/18 Nifedipine ER [Procardia Xl -] 30 mg PO BID 10/15/18 Sitagliptin Phosphate [Januvia] 50 mg PO DAILY 10/15/18 REVIEW OF SYSTEMS CONSTITUTIONAL: Absent: fever, chills, diaphoresis, generalized weakness, malaise, loss of appetite, weight change HEENT: Absent: rhinorrhea, nasal congestion, throat pain, throat swelling, difficulty swallowing, mouth swelling, ear pain, eye pain, visual changes CARDIOVASCULAR: Absent: chest pain, syncope, palpitations, irregular heart rate, lightheadedness , peripheral edema RESPIRATORY: Absent: cough, shortness of breath, dyspnea with exertion, orthopnea, wheezing, stridor, hemoptysis GASTROINTESTINAL: Absent: abdominal pain, abdominal distension, nausea, vomiting, diarrhea, constipation, melena, hematochezia GENITOURINARY: Absent: dysuria, frequency, urgency, hesitancy, hematuria, flank pain, genital pain MUSCULOSKELETAL: Absent: myalgia, arthralgia, joint swelling, back pain, neck pain SKIN: Absent: rash, itching, pallor HEMATOLOGIC/IMMUNOLOGIC: Absent: easy bleeding, easy bruising, lymphadenopathy, frequent infections ENDOCRINE: Absent: unexplained weight gain, unexplained weight loss, heat intolerance, cold intolerance NEUROLOGIC: Absent: headache, focal weakness or paresthesias, dizziness, unsteady gait, seizure, mental status changes, bladder or bowel incontinence PSYCHIATRIC: Absent: anxiety, depression, suicidal or homicidal ideation, hallucinations. PHYSICAL EXAMINATION Vital Signs - 24 hr 10/15/18 10/15/18 10/15/18 16:23 16:30 18:43 Temperature 97.8 F 98 F Pulse Rate 66 65 Pulse Rate [ 62 Left Apical] Respiratory 30 H 24 H Rate Blood Pressure 143/66 Blood Pressure 150/76 [Right Arm] O2 Sat by Pulse 88 L 95 95 Oximetry (%) 10/15/18 19:52 Temperature Pulse Rate Pulse Rate [ 69 Left Apical] Respiratory 17 Rate Blood Pressure Blood Pressure 126/76 [Right Arm] O2 Sat by Pulse 95 Oximetry (%) GENERAL: awake, alert, and fully oriented no acute distress HEAD: normal with no signs of trauma EYES: pupils equal, round and reactive to light EARS, NOSE, THROAT: ears normal nares patent oropharynx clear without exudates moist mucous membranes NECK: no significant JVD LUNGS: breath sounds equal and clear to auscultation bilateral no wheezing and crackles no accessory muscle use HEART: regular rate and rhythm normal S1 and S2 ABDOMEN: soft, normoactive bowel sounds no ascites MUSCULOSKELETAL: normal range of motion at all joints no bony deformities or tenderness no CVA tenderness UPPER EXTREMITIES: 2+ pulses warm well-perfused no cyanosis no peripheral edema LOWER EXTREMITIES: 2+ pulses warm 1+ lower extremity edema present bilaterally NEUROLOGICAL: no neuro focal deficits PSYCHIATRIC: cooperative good eye contact appropriate mood and affect SKIN: warm dry normal turgor no rashes or lesions noted Laboratory Results - last 24 hr 10/15/18 10/15/18 10/15/18 17:00 17:00 17:00 WBC 11.3 H RBC 3.35 L Hgb 11.2 L Hct 33.3 L MCV 99.6 H MCH 33.4 MCHC 33.5 RDW 15.9 Plt Count 125 L MPV 8.6 Absolute Neuts (auto) 9.8 Neutrophils % 86.9 H Lymphocytes % 8.0 D Monocytes % 2.5 L Eosinophils % 2.0 Basophils % 0.6 PT with INR INR PTT (Actin FS) VBG pH POC VBG pCO2 POC VBG pO2 VBG HCO3 VBG O2 Sat (Zara) VBG Base Excess Sodium 140 Potassium 5.2 H Chloride 109 H Carbon Dioxide 25 Anion Gap 6 L BUN 41.0 H Creatinine 1.5 H Est GFR (CKD-EPI)AfAm 48.85 Est GFR (CKD-EPI)NonAf 42.14 Random Glucose 95 Calcium 8.6 Total Bilirubin 0.6 AST 23 ALT 26 Alkaline Phosphatase 36 L Troponin I B-Natriuretic Peptide 6164.4 H Total Protein 6.1 L Albumin 3.4 TSH Cancelled 0.38 D Urine Color Urine Appearance Urine pH Urine Protein Urine Glucose (UA) Urine Ketones Urine Blood Urine Nitrite Urine Bilirubin Urine Urobilinogen Ur Leukocyte Esterase Urine RBC Urine WBC Ur Transition Epith Cell 10/15/18 10/15/18 10/15/18 17:00 17:15 17:30 WBC RBC Hgb Hct MCV MCH MCHC RDW Plt Count MPV Absolute Neuts (auto) Neutrophils % Lymphocytes % Monocytes % Eosinophils % Basophils % PT with INR INR PTT (Actin FS) VBG pH 7.30 L POC VBG pCO2 54.4 H POC VBG pO2 < 49 H VBG HCO3 26.5 VBG O2 Sat (Zara) 61.9 L VBG Base Excess 0 Sodium Potassium Chloride Carbon Dioxide Anion Gap BUN Creatinine Est GFR (CKD-EPI)AfAm Est GFR (CKD-EPI)NonAf Random Glucose Calcium Total Bilirubin AST ALT Alkaline Phosphatase Troponin I 0.05 B-Natriuretic Peptide Total Protein Albumin TSH Urine Color Yellow Urine Appearance Clear Urine pH 5.0 Urine Protein 2+ H Urine Glucose (UA) Negative Urine Ketones Negative Urine Blood Negative Urine Nitrite Negative Urine Bilirubin Negative Urine Urobilinogen 0.2 Ur Leukocyte Esterase Negative Urine RBC 2-5 Urine WBC 0-2 Ur Transition Epith Cell Rare 10/15/18 10/15/18 17:52 17:52 WBC RBC Hgb Hct MCV MCH MCHC RDW Plt Count MPV Absolute Neuts (auto) Neutrophils % Lymphocytes % Monocytes % Eosinophils % Basophils % PT with INR 14.2 H INR 1.27 H PTT (Actin FS) 30.8 VBG pH POC VBG pCO2 POC VBG pO2 VBG HCO3 VBG O2 Sat (Zara) VBG Base Excess Sodium Potassium Chloride Carbon Dioxide Anion Gap BUN Creatinine Est GFR (CKD-EPI)AfAm Est GFR (CKD-EPI)NonAf Random Glucose Calcium Total Bilirubin AST ALT Alkaline Phosphatase Troponin I B-Natriuretic Peptide Total Protein Albumin TSH Urine Color Urine Appearance Urine pH Urine Protein Urine Glucose (UA) Urine Ketones Urine Blood Urine Nitrite Urine Bilirubin Urine Urobilinogen Ur Leukocyte Esterase Urine RBC Urine WBC Ur Transition Epith Cell ASSESSMENT/PLAN: 83 year old male with past medical history of coronary artery disease with prior CABG and stents in April/May 2017, COPD(not home oxygen dependent), hypertension, diabtes mellitus, and chronic kidney disease who presents with symptoms of shortness of breath for the past 3 days. He was found to have a normal troponin, BNP 6064 and CXR demonstrated pulmonary vascular congestion. He was also found to have new onset Atrial Flutter. #1 Acute Diastolic Congestive Heart Failure in setting of Atrial Flutter(rate controlled) Workup- elevated BNP of >6000, creatinine 1.5, CXR with pulmonary vascular congestion, Echo 04/2017 LV and RV normal, mild MR and moderate TR. Received one dosage of IV lasix 40 mg in ER Continue with IV lasix 40 mg twice daily with close monitoring of renal studies , daily weights, strict I&O's and electrolytes Echocardiogram ordered to evaluate LV function and progression of valvular anatomy Cardiology- Dr. Burch consulted #2 New Onset Atrial Flutter Rate controlled Continue with coreg and nifedipine CASSANDRA VASc score 3 for stroke risk Started on Eliquis 2.5 mg twice daily (dosage based on age >80 and creatinine of 1.5) TSH normal Continue with IV diuresis Cardiology consulted #3 Coronary Artery Disease(hx of CABG and stents April/May in 2018) He denies any active angina.Troponin normal Continue to trend troponins Continue with plavix and statin no louie/arb in setting of CRI, c/w coreg and nifedipine #4 Hypertension Controlled Continue coreg an nifedipine #5 Hyperlipidemia LFT's normal Continue w/statin therapy. #6 COPD No acute exacerbation Continue with albuterol nebulizer treatments q6hr Pulmonary- Dr. Hernandez consulted #7 Acute on Chronic Kidney Disease Creatinine 1.5 Continue to monitor with IV diuresis Avoid louie/arbs/NSAIDS #8 Diabetes Mellitus Blood glucose monitoring Continue with Novolin sliding scale as needed #9 Gout Continue with allopurinol # 10 Anxiety Xanax prn FEN monitor electrolytes closely low sodium diet DVT Prophylaxsis on systemic anticoagulation w/Eliquis Visit type - Emergency Visit Emergency Visit: Yes ED Registration Date: 10/15/18 Care time: The patient presented to the Emergency Department on the above date and was hospitalized for further evaluation of their emergent condition. - New Patient This patient is new to me today: Yes Date on this admission: 10/15/18 - Critical Care Critical Care patient: No
[2018-10-15] MEDS ORDERED: diphenhydrAMINE HCL 25 MG CAPSULE (FP) PO ONE ×2 (20:02→20:24)
[2018-10-15] MEDS ORDERED: ALPRAZolam 1 MG TABLET PO SCH (20:15)
[2018-10-15] MEDS ORDERED: ALBUTEROL SO4 0.083% IH SOL 2.5 MG/3 ML VIAL.NEB. NEB PRN (20:45)
[2018-10-15] MEDS: APIXABAN 2.5 MG TABLET PO SCH (21:07)
[2018-10-15] MEDS: ALPRAZolam 0.25 MG TABLET PO PRN (21:46)
[2018-10-15] MEDS ORDERED: ALBUTEROL SO4 8 GM HFA INHALER IH PRN (22:09)
[2018-10-15 22:13] VITALS: BMI 26.9
[2018-10-16] MEDS: FUROSEMIDE 40 MG/4 ML INJECTABLE VIAL IVPUSH SCH ×2 (05:43→14:15)
[2018-10-16] MEDS ORDERED: INSULIN (NOVOLOG) ASPART 100 UNITS/ML 10ML VIAL ONE (06:51)
[2018-10-16] MEDS: INSULIN SLIDING SCALE (NOVOLOG) 1 VIAL SQ SCH ×2 (06:52→18:00)
--- NOTE | 2018-10-16 09:18 | EKG ---
Test Reason : Blood Pressure : / mmHG Vent. Rate : 062 BPM Atrial Rate : 267 BPM P-R Int : 000 ms QRS Dur : 104 ms QT Int : 408 ms P-R-T Axes : 252 006 047 degrees QTc Int : 414 ms ATRIAL FLUTTER WITH VARIABLE A-V BLOCK INFERIOR INFARCT (CITED ON OR BEFORE 07-JUL-2016) ANTEROSEPTAL INFARCT (CITED ON OR BEFORE 07-JUL-2016) ABNORMAL ECG WHEN COMPARED WITH ECG OF 30-SEP-2018 12:11, ATRIAL FLUTTER HAS REPLACED SINUS RHYTHM Confirmed by DONNA PAUL MD ([id number]) on 10/16/2018 9:18:26 AM Referred By: MIKAEL Confirmed By:DONNA PAUL MD
--- NOTE | 2018-10-16 09:18 | EKG ---
Test Reason : Blood Pressure : / mmHG Vent. Rate : 071 BPM Atrial Rate : 284 BPM P-R Int : 000 ms QRS Dur : 108 ms QT Int : 406 ms P-R-T Axes : 000 000 026 degrees QTc Int : 441 ms ATRIAL FLUTTER WITH 4:1 A-V CONDUCTION ANTEROSEPTAL INFARCT (CITED ON OR BEFORE 07-JUL-2016) ABNORMAL ECG WHEN COMPARED WITH ECG OF 15-OCT-2018 16:31, NON-SPECIFIC CHANGE IN ST SEGMENT IN INFERIOR LEADS Confirmed by DONNA PAUL MD ([id number]) on 10/16/2018 9:18:36 AM Referred By: JUSTINA ANGELES Confirmed By:DONNA PAUL MD
[2018-10-16 09:26] LABS: HEMATOCRIT 32.3 % (35.4-49); HEMOGLOBIN 10.6 GM/dl (11.7-16.9); MCH 32.7 pg (25.7-33.7); MCHC 32.9 g/dl (32.0-35.9); MEAN CELL VOLUME 99.5 fl (80-96); MEAN PLT VOLUME 8.8 fl (7.5-11.1); PLATELET COUNT 113 K/MM3 (134-434); RBC 3.25 M/mm3 (4.00-5.60); RDW 15.7 % (11.9-15.9); WHITE BLOOD COUNT 9.3 K/mm3 (4.0-10.8)
[2018-10-16 09:31] LABS: CALCIUM 8.5 mg/dl (8.5-10); CREATININE 1.4 mg/dl (0.55-1.3); MAGNESIUM 2.2 mg/dL (1.8-2.4); POTASSIUM 4.8 mmol/L (3.5-5.1)
[2018-10-16] MEDS: APIXABAN 2.5 MG TABLET PO SCH (09:38)
[2018-10-16] MEDS: CARVEDILOL 3.125 MG TABLET (FP) PO SCH ×2 (09:38→21:42)
[2018-10-16] MEDS: FOLIC ACID 1 MG TABLET (FP) PO SCH (09:39)
[2018-10-16] MEDS: NIFEdipine E.R. 30 MG TABLET (FP) PO SCH ×2 (09:39→21:42)
[2018-10-16] MEDS: ALLOPURINOL 100 MG TABLET (FP) PO SCH (09:39)
[2018-10-16] MEDS ORDERED: CLOPIDOGREL BISULFATE 75 MG TABLET (FP) PO SCH (10:00)
--- NOTE | 2018-10-16 11:30 | PN ---
Physical Exam: SUBJECTIVE: Patient seen and examined, doing better , tired but not sob , no cp , no palpitations, OBJECTIVE: Vital Signs Period Temp Pulse Resp BP Sys/Downs Pulse Ox Last 24 Hr 97.8 F-99.1 F 62-81 17-30 126-154/52-76 88-97 GENERAL: The patient is awake, alert, and fully oriented, in no acute distress. HEAD: Normal with no signs of trauma. EYES: PERRL, extraocular movements intact, sclera anicteric, conjunctiva clear. No ptosis. ENT: Ears normal, nares patent, oropharynx clear without exudates, moist mucous membranes. NECK: Trachea midline, full range of motion, supple. LUNGS: Breath sounds equal, clear to auscultation bilaterally, no wheezes, no crackles, no accessory muscle use. HEART: Regular rate and rhythm, S1, S2 without murmur, rub or gallop. ABDOMEN: Soft, nontender, nondistended, normoactive bowel sounds, no guarding, no rebound, no hepatosplenomegaly, no masses. EXTREMITIES: 2+ pulses, warm, well-perfused, no edema. NEUROLOGICAL: Cranial nerves II through XII grossly intact. Normal speech, gait not observed. PSYCH: Normal mood, normal affect. SKIN: Warm, dry, normal turgor, no rashes or lesions noted Laboratory Results - last 24 hr 10/15/18 10/15/18 10/15/18 17:00 17:00 17:00 WBC 11.3 H RBC 3.35 L Hgb 11.2 L Hct 33.3 L MCV 99.6 H MCH 33.4 MCHC 33.5 RDW 15.9 Plt Count 125 L MPV 8.6 Absolute Neuts (auto) 9.8 Neutrophils % 86.9 H Lymphocytes % 8.0 D Monocytes % 2.5 L Eosinophils % 2.0 Basophils % 0.6 PT with INR INR PTT (Actin FS) VBG pH POC VBG pCO2 POC VBG pO2 VBG HCO3 VBG O2 Sat (Zara) VBG Base Excess Sodium 140 Potassium 5.2 H Chloride 109 H Carbon Dioxide 25 Anion Gap 6 L BUN 41.0 H Creatinine 1.5 H Est GFR (CKD-EPI)AfAm 48.85 Est GFR (CKD-EPI)NonAf 42.14 POC Glucometer Random Glucose 95 Calcium 8.6 Magnesium Total Bilirubin 0.6 AST 23 ALT 26 Alkaline Phosphatase 36 L Troponin I B-Natriuretic Peptide 6164.4 H Total Protein 6.1 L Albumin 3.4 TSH Cancelled 0.38 D Urine Color Urine Appearance Urine pH Urine Protein Urine Glucose (UA) Urine Ketones Urine Blood Urine Nitrite Urine Bilirubin Urine Urobilinogen Ur Leukocyte Esterase Urine RBC Urine WBC Ur Transition Epith Cell 10/15/18 10/15/18 10/15/18 17:00 17:15 17:30 WBC RBC Hgb Hct MCV MCH MCHC RDW Plt Count MPV Absolute Neuts (auto) Neutrophils % Lymphocytes % Monocytes % Eosinophils % Basophils % PT with INR INR PTT (Actin FS) VBG pH 7.30 L POC VBG pCO2 54.4 H POC VBG pO2 < 49 H VBG HCO3 26.5 VBG O2 Sat (Zara) 61.9 L VBG Base Excess 0 Sodium Potassium Chloride Carbon Dioxide Anion Gap BUN Creatinine Est GFR (CKD-EPI)AfAm Est GFR (CKD-EPI)NonAf POC Glucometer Random Glucose Calcium Magnesium Total Bilirubin AST ALT Alkaline Phosphatase Troponin I 0.05 B-Natriuretic Peptide Total Protein Albumin TSH Urine Color Yellow Urine Appearance Clear Urine pH 5.0 Urine Protein 2+ H Urine Glucose (UA) Negative Urine Ketones Negative Urine Blood Negative Urine Nitrite Negative Urine Bilirubin Negative Urine Urobilinogen 0.2 Ur Leukocyte Esterase Negative Urine RBC 2-5 Urine WBC 0-2 Ur Transition Epith Cell Rare 10/15/18 10/15/18 10/15/18 17:52 17:52 23:11 WBC RBC Hgb Hct MCV MCH MCHC RDW Plt Count MPV Absolute Neuts (auto) Neutrophils % Lymphocytes % Monocytes % Eosinophils % Basophils % PT with INR 14.2 H INR 1.27 H PTT (Actin FS) 30.8 VBG pH POC VBG pCO2 POC VBG pO2 VBG HCO3 VBG O2 Sat (Zara) VBG Base Excess Sodium Potassium Chloride Carbon Dioxide Anion Gap BUN Creatinine Est GFR (CKD-EPI)AfAm Est GFR (CKD-EPI)NonAf POC Glucometer Random Glucose Calcium Magnesium Total Bilirubin AST ALT Alkaline Phosphatase Troponin I 0.04 B-Natriuretic Peptide Total Protein Albumin TSH Urine Color Urine Appearance Urine pH Urine Protein Urine Glucose (UA) Urine Ketones Urine Blood Urine Nitrite Urine Bilirubin Urine Urobilinogen Ur Leukocyte Esterase Urine RBC Urine WBC Ur Transition Epith Cell 09/03/0510/16/18 10/16/18 06:00 06:00 06:48 WBC 9.3 RBC 3.25 L Hgb 10.6 L Hct 32.3 L MCV 99.5 H MCH 32.7 MCHC 32.9 RDW 15.7 Plt Count 113 L MPV 8.8 Absolute Neuts (auto) Neutrophils % Lymphocytes % Monocytes % Eosinophils % Basophils % PT with INR INR PTT (Actin FS) VBG pH POC VBG pCO2 POC VBG pO2 VBG HCO3 VBG O2 Sat (Zara) VBG Base Excess Sodium 141 Potassium 4.8 Chloride 105 Carbon Dioxide 28 Anion Gap 8 BUN 36.0 H Creatinine 1.4 H Est GFR (CKD-EPI)AfAm 53.09 Est GFR (CKD-EPI)NonAf 45.81 POC Glucometer 163 Random Glucose 155 H Calcium 8.5 Magnesium 2.2 Total Bilirubin AST ALT Alkaline Phosphatase Troponin I B-Natriuretic Peptide Total Protein Albumin TSH Urine Color Urine Appearance Urine pH Urine Protein Urine Glucose (UA) Urine Ketones Urine Blood Urine Nitrite Urine Bilirubin Urine Urobilinogen Ur Leukocyte Esterase Urine RBC Urine WBC Ur Transition Epith Cell 10/16/18 11:07 WBC RBC Hgb Hct MCV MCH MCHC RDW Plt Count MPV Absolute Neuts (auto) Neutrophils % Lymphocytes % Monocytes % Eosinophils % Basophils % PT with INR INR PTT (Actin FS) VBG pH POC VBG pCO2 POC VBG pO2 VBG HCO3 VBG O2 Sat (Zara) VBG Base Excess Sodium Potassium Chloride Carbon Dioxide Anion Gap BUN Creatinine Est GFR (CKD-EPI)AfAm Est GFR (CKD-EPI)NonAf POC Glucometer 148 Random Glucose Calcium Magnesium Total Bilirubin AST ALT Alkaline Phosphatase Troponin I B-Natriuretic Peptide Total Protein Albumin TSH Urine Color Urine Appearance Urine pH Urine Protein Urine Glucose (UA) Urine Ketones Urine Blood Urine Nitrite Urine Bilirubin Urine Urobilinogen Ur Leukocyte Esterase Urine RBC Urine WBC Ur Transition Epith Cell Active Medications Generic Name Dose Route Start Last Admin Trade Name Freq PRN Reason Stop Dose Admin Albuterol Sulfate 1 amp 10/15/18 20:45 Ventolin 0.083% Nebulizer Soln - NEB Q6H PRN SHORT OF BREATH/WHEEZING Allopurinol 100 mg 10/16/18 10:00 10/16/18 09:39 Zyloprim - PO 100 mg DAILY TRACY Administration Alprazolam 0.25 mg 10/15/18 20:03 10/15/18 21:46 Xanax - PO 0.25 mg Q6H PRN Administration ANXIETY Apixaban 2.5 mg 10/15/18 22:00 10/16/18 09:38 Eliquis - PO 2.5 mg BID TRACY Administration Atorvastatin Calcium 80 mg 10/16/18 22:00 Lipitor - PO HS TRACY Carvedilol 3.125 mg 10/16/18 10:00 10/16/18 09:38 Coreg - PO 3.125 mg BID TRACY Administration Clopidogrel Bisulfate 75 mg 10/16/18 10:00 10/16/18 09:39 Plavix - PO 75 mg DAILY TRACY Administration Folic Acid 1 mg 10/16/18 10:00 10/16/18 09:39 Folic Acid - PO 1 mg DAILY TRACY Administration Furosemide 40 mg 10/16/18 06:00 10/16/18 05:43 Lasix Injection - IVPUSH 40 mg BID@0600,1400 TRACY Administration Insulin Aspart 1 vial 10/16/18 07:00 10/16/18 06:52 Novolog Vial Sliding Scale - SQ Not Given BIDAC [facility] Protocol Methotrexate 2.5 mg 10/17/18 10:00 Mexate - PO Mo@1000 TRACY Nifedipine 30 mg 10/16/18 10:00 10/16/18 09:39 Procardia Xl - PO 30 mg BID TRACY Administration ASSESSMENT/PLAN: #1 Acute Diastolic Congestive Heart Failure in setting of Atrial Flutter(rate controlled) Workup- elevated BNP of >6000, creatinine 1.5, CXR with pulmonary vascular congestion, Continue with IV lasix 40 mg twice daily with close monitoring of renal studies , daily weights, strict I&O's and electrolytes check Echocardiogram ordered to evaluate LV function and progression of valvular anatomy Cardiology- Dr. Burch consulted #2 New Onset Atrial Flutter Rate controlled Continue with coreg and nifedipine CASSNADRA VASc score 3 for stroke risk Started on Eliquis 2.5 mg twice daily (dosage based on age >80 and creatinine of 1.5) TSH normal Continue with IV diuresis Cardiology consulted #3 Coronary Artery Disease(hx of CABG and stents April/May in 2018) He denies any active angina.Troponin normal Continue to trend troponins Continue with plavix and statin no louie/arb in setting of CRI, c/w coreg and nifedipine #4 Hypertension Controlled Continue coreg an nifedipine #5 Hyperlipidemia LFT's normal Continue w/statin therapy. #6 COPD No acute exacerbation Continue with albuterol nebulizer treatments q6hr Pulmonary- Dr. Hernandez consulted #7 Acute on Chronic Kidney Disease Creatinine 1.5 Continue to monitor with IV diuresis Avoid louie/arbs/NSAIDS #8 Diabetes Mellitus Blood glucose monitoring Continue with Novolin sliding scale as needed #9 Gout Continue with allopurinol # 10 Anxiety Xanax prn FEN monitor electrolytes closely low sodium diet DVT Prophylaxsis on systemic anticoagulation w/Eliquis Visit type - Emergency Visit Emergency Visit: No - New Patient This patient is new to me today: Yes Date on this admission: 10/16/18 - Critical Care Critical Care patient: No - Discharge Referral Referred to [facility] No
--- NOTE | 2018-10-16 12:34 | CON.CARD ---
Cardiology Consult (text) - Consultation Consultation Note: cc: sob hpi: 83 m h/o CAD ( s/p CABG 2003 [facility] ZEE-LAD, SVG-OM, SVG-PDA/drca ( known occluded) and subsequent PCI most recently 04/2017 CASSIDY x 1 to SVG-proxOM1, 05/2017 CASSIDY x 4 to RCA on DAPT), HTN, HLD, bradycardia, wenckebach presenting with shortness of breath. Had been present for 2 days, was thought to be from panic attacks. Was supposed to be started on diazepam but rx never sent to pharmacy. Hope episodes of anxiety with sob so came to ER. Found to have new aflutter, rate controlled. Sees dr harvey for cardio. Today feeling well. pmh: per hpi psh: cabg social: no tob fam: no premature cad ros: per hpi; all others nl meds: Home Medications Medication Instructions Recorded Albuterol Sulfate Inhaler - 2 inh PO Q4H PRN 10/15/18 [Ventolin Hfa Inhaler -] Allopurinol [Zyloprim -] 100 mg PO DAILY 10/15/18 Atorvastatin Ca [Lipitor] 80 mg PO DAILY 10/15/18 Carvedilol [Coreg -] 3.125 mg PO BID 10/15/18 Clopidogrel Bisulfate [Clopidogrel] 75 mg PO DAILY 10/15/18 Famotidine [Pepcid] 40 mg PO DAILY 10/15/18 Folic Acid 1 mg PO DAILY 10/15/18 Furosemide 40 mg PO DAILY 10/15/18 Methotrexate Sodium [Methotrexate] 2.5 mg PO Q7D 10/15/18 Nifedipine ER [Procardia Xl -] 30 mg PO BID 10/15/18 Sitagliptin Phosphate [Januvia] 50 mg PO DAILY 10/15/18 pe: Vital Signs Period Temp Pulse Resp BP Sys/Downs Pulse Ox Last 24 Hr 97.8 F-99.1 F 62-81 17-30 126-154/52-76 88-97 nad no jvd irreg s1s2 no mrg cta bl nl eff aao3 no le e/c/c abd nt nd pos bs no jaundice diaphoresis pos dp pt no carotid bruits Laboratory Last Values WBC 9.3 K/mm3 (4.0-10.8) 10/16/18 06:00 RBC 3.25 M/mm3 (4.00-5.60) L 10/16/18 06:00 Hgb 10.6 GM/dl (11.7-16.9) L 10/16/18 06:00 Hct 32.3 % (35.4-49) L 10/16/18 06:00 MCV 99.5 fl (80-96) H 10/16/18 06:00 MCH 32.7 pg (25.7-33.7) 10/16/18 06:00 MCHC 32.9 g/dl (32.0-35.9) 10/16/18 06:00 RDW 15.7 % (11.9-15.9) 10/16/18 06:00 Plt Count 113 K/MM3 (134-434) L 10/16/18 06:00 MPV 8.8 fl (7.5-11.1) 10/16/18 06:00 Absolute Neuts (auto) 9.8 K/mm3 10/15/18 17:00 Neutrophils % 86.9 % (42.8-82.8) H 10/15/18 17:00 Lymphocytes % 8.0 % (8-40) D 10/15/18 17:00 Monocytes % 2.5 % (3.8-10.2) L 10/15/18 17:00 Eosinophils % 2.0 % (0-4.5) 10/15/18 17:00 Basophils % 0.6 % (0-2.0) 10/15/18 17:00 PT with INR 14.2 SEC (10.2-13.0) H 10/15/18 17:52 INR 1.27 (0.82-1.09) H 10/15/18 17:52 PTT (Actin FS) 30.8 SECONDS (25.2-36.5) 10/15/18 17:52 VBG pH 7.30 (7.31-7.41) L 10/15/18 17:00 POC VBG pCO2 54.4 mmHg (38-52) H 10/15/18 17:00 POC VBG pO2 < 49 mmHg (28-48) H 10/15/18 17:00 VBG HCO3 26.5 mmol/L (23-29) 10/15/18 17:00 VBG O2 Sat (Zara) 61.9 % (70-80) L 10/15/18 17:00 VBG Base Excess 0 meq/l (-2-2) 10/15/18 17:00 Sodium 141 mmol/L (136-145) 10/16/18 06:00 Potassium 4.8 mmol/L (3.5-5.1) 10/16/18 06:00 Chloride 105 mmol/L (98-107) 10/16/18 06:00 Carbon Dioxide 28 mmol/L (21-32) 10/16/18 06:00 Anion Gap 8 MMOL/L (8-16) 10/16/18 06:00 BUN 36.0 mg/dl (7-18) H 10/16/18 06:00 Creatinine 1.4 mg/dl (0.55-1.3) H 10/16/18 06:00 Est GFR (CKD-EPI)AfAm 53.09 10/16/18 06:00 Est GFR (CKD-EPI)NonAf 45.81 10/16/18 06:00 POC Glucometer 148 UNITS (80-120) 10/16/18 11:07 Random Glucose 155 mg/dl (74-106) H 10/16/18 06:00 Calcium 8.5 mg/dl (8.5-10) 10/16/18 06:00 Magnesium 2.2 mg/dL (1.8-2.4) 10/16/18 06:00 Total Bilirubin 0.6 mg/dl (0.2-1) 10/15/18 17:00 AST 23 U/L (15-37) 10/15/18 17:00 ALT 26 U/L (13-61) 10/15/18 17:00 Alkaline Phosphatase 36 U/L (45-117) L 10/15/18 17:00 Troponin I 0.04 ng/ml (0.00-0.05) 10/15/18 23:11 B-Natriuretic Peptide 6164.4 pg/ml (5-450) H 10/15/18 17:00 Total Protein 6.1 g/dl (6.4-8.2) L 10/15/18 17:00 Albumin 3.4 g/dl (3.4-5.0) 10/15/18 17:00 TSH 0.38 uIU/ml (0.358-3.74) D 10/15/18 17:00 Urine Color Yellow 10/15/18 17:30 Urine Appearance Clear 10/15/18 17:30 Urine pH 5.0 (4.5-8) 10/15/18 17:30 Urine Protein 2+ (NEGATIVE) H 10/15/18 17:30 Urine Glucose (UA) Negative (NEGATIVE) 10/15/18 17:30 Urine Ketones Negative (NEGATIVE) 10/15/18 17:30 Urine Blood Negative (NEGATIVE) 10/15/18 17:30 Urine Nitrite Negative (NEGATIVE) 10/15/18 17:30 Urine Bilirubin Negative (NEGATIVE) 10/15/18 17:30 Urine Urobilinogen 0.2 (0.2-1.0) 10/15/18 17:30 Ur Leukocyte Esterase Negative (NEGATIVE) 10/15/18 17:30 Urine RBC 2-5 /hpf (0-4) 10/15/18 17:30 Urine WBC 0-2 (NEGATIVE) 10/15/18 17:30 Ur Transition Epith Cell Rare /hpf 10/15/18 17:30 cxr: mild congestion Echo 07/2018 sinus with first deg AVB and wenckebach, tds, low normal EF 50-55%, E/A reversal, nl RV, LA severely dilated, interatrial septal aneurysm, mild AR, mod MAC with mild functional MS (3 mmHg), mild pulm HTN Event monitor: wenckebach with episodes of wenckebach with 2:1 block Cath 05/2017 [facility] [place] - part 2): LVEDP 15. prca 80-90% --> rotational atherectomy/PTCA/CASSIDY, mRCA 80-90% --> rotational atherectomy/PTCA/CASSIDY , dRCA 90-95% -->rotational atherectomy/PTCA/CASSIDY. RPDA mild dz, AV continuation 90-95% --> rotational atherectomy/CASSIDY. SVG to prox OM1 patent with patent stent as well. tele: aflutter, rate controlled ecg: aflutter, rate ok, no ischemic changes a/p: 83 m h/o CAD ( [facility], SVG-OM, SVG-PDA/drca ( known occluded) and subsequent PCI most recently 04/2017 CASSIDY x 1 to SVG-proxOM1, 05/2017 CASSIDY x 4 to RCA on DAPT), HTN, HLD, bradycardia, wenckebach presenting with shortness of breath. sob, acute on chronic diastolic chf: -no signs acs -mild pulm congestion, possibly from aflutter -after getting iv lasix feels better. seems euvolemic on exam. Will cont iv lasix today and change to po tomorrow. -would treat anxiety as well since this seems to contribute to sob sxs CAD, s/p CABG with subsequent PCI of SVG to OM1, mult CASSIDY to reno-sparks RCA (graft occluded): - no signs acute ischemia here - cont statin - cont plavix. will stop asa now that starting AC for aflutter. - has tolerated carvedilol low dose long time per pt, with known Mobitz 1 physiology. no pathological bradyarrhythmia on tele here--cont same. HTN: - bp controlled - cont home meds for now CKD: -baseline creat 1.3-1.6 -stable here aflutter: -newly diagnosed this admit -rate controlled on coreg -chadsvasc warrants ac. D/w pt and family risks/benefits of AC, and they are agreeable. Started eliquis 2.5 bid (low dose due to age, cr)
[2018-10-16] MEDS: ALPRAZolam 0.25 MG TABLET PO PRN ×2 (13:00→20:06)
--- NOTE | 2018-10-16 14:05 | CON.PULM ---
Consult Consult Specialty:: PULMONARY Referred by:: Dr Vazquez Reason for Consultation:: shortness of breath - History of Present Illness Chief Complaint: shortness of breath History of Present Illness: 83yo male with h/o HTN, hyperlipidemia, CAD s/p CABG who was admitted with worsening shortness of breath x 1 week. Denies chest pain or discomfort. No cough or wheezing. No fevers, chills or sweats. Has also been feeling very anxious the last 2 days. +orthopnea and has been waking up at night gasping for breaths. Denies leg swelling or pain. 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 Found to be in new onset atrial flutter. - History Source History Provided By: Patient, Family Member, Medical Record Limitations to Obtaining History: Clinical Condition - Past Medical History Cardio/Vascular: Yes: HTN, Hyperlipdemia Pulmonary: Yes: Bronchitis, COPD, Pneumonia. 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 Home Medications - Allergies Allergies/Adverse Reactions: Allergies Allergy/AdvReac Type Severity Reaction Status Date / Time No Known Drug Allergies Allergy Verified 10/15/18 16:25 - Home Medications Home Medications: Ambulatory Orders Albuterol Sulfate Inhaler - [Ventolin Hfa Inhaler -] 2 inh PO Q4H PRN 10/15/18 Allopurinol [Zyloprim -] 100 mg PO DAILY 10/15/18 Atorvastatin Ca [Lipitor] 80 mg PO DAILY 10/15/18 Carvedilol [Coreg -] 3.125 mg PO BID 10/15/18 Clopidogrel Bisulfate [Clopidogrel] 75 mg PO DAILY 10/15/18 Famotidine [Pepcid] 40 mg PO DAILY 10/15/18 Folic Acid 1 mg PO DAILY 10/15/18 Furosemide 40 mg PO DAILY 10/15/18 Methotrexate Sodium [Methotrexate] 2.5 mg PO Q7D 10/15/18 Nifedipine ER [Procardia Xl -] 30 mg PO BID 10/15/18 Sitagliptin Phosphate [Januvia] 50 mg PO DAILY 10/15/18 Review of Systems - Review of Systems Constitutional: reports: Weakness. denies: Chills, Fever Eyes: denies: Recent Change in Vision HENT: denies: Nasal Congestion, Throat Pain Neck: denies: Stiffness, Tenderness Cardiovascular: reports: Shortness of Breath. denies: Chest Pain, Edema, Palpitations Respiratory: reports: Exercise Intolerance, SOB on Exertion. denies: Cough, Hemoptysis, Wheezing Gastrointestinal: denies: Abdominal Pain, Nausea, Vomiting Genitourinary: denies: Dysuria, Hematuria Neurological: reports: Weakness. denies: Dizziness, Headache Endocrine: denies: Unexplained Weight Loss Physical Exam Vital Sings: Vital Signs Temperature 98.7 F 10/16/18 10:00 Pulse Rate 64 10/16/18 10:00 Respiratory Rate 18 10/16/18 10:00 Blood Pressure 152/52 L 10/16/18 10:00 O2 Sat by Pulse Oximetry (%) 97 10/16/18 10:00 Constitutional: Yes: Anxious, Mild Distress Eyes: Yes: Conjunctiva Clear, EOM Intact HENT: Yes: Atraumatic, Normocephalic Neck: Yes: Supple, Trachea Midline Cardiovascular: Yes: Regular Rate and Rhythm Respiratory: Yes: Rales ...Clubbing: No Gastrointestinal: Yes: Normal Bowel Sounds, Soft. No: Tenderness Edema: No Neurological: Yes: Alert, Oriented Labs: CBC, BMP 10/16/18 06:00 10/16/18 06:00 Imaging - Results Chest X-ray: Report Reviewed, Image Reviewed (pulmonary vascular congestion) Problem List - Problems (1) Atrial flutter Code(s): I48.92 - UNSPECIFIED ATRIAL FLUTTER Qualifiers: Atrial flutter type: unspecified Qualified Code(s): I48.92 - Unspecified atrial flutter (2) Acute on chronic diastolic (congestive) heart failure Code(s): I50.33 - ACUTE ON CHRONIC DIASTOLIC (CONGESTIVE) HEART FAILURE Assessment/Plan Acute Hypoxic Respiratory Failure Acute on Chronic Diastolic Heart Failure New Onset Atrial Flutter CAD s/p CABG HTN Hyperlipidemia CKD - IV lasix - monitor urine output, creatinine - daily weights - echocardiogram - O2 to keep SpO2 >90% - rate control - continue anticoagulation - repeat CXR in AM Thank you for this consult Vasyl Salinas MD
--- NOTE | 2018-10-16 16:38 | PN ---
Progress Note (short form) - Note Progress Note: addedem, to progress note, pt had 2 episodes of epistaxis , and 1st one stopped after applying pressure bleeding was profuse, , and second happened around 4 pm , and stopped after applying pressure , and had rhino pack bedside, pt refused to use , and became very aggressive, but bleding stoppe d, held plavix , and eliquis for now, case discussed with daughter , and can be resumed if pt stable, , will get cbc repeat , and will also see cbc in am , called consult with dr long , ENT , and will fu case discussed with Dr Burch, pt is hemodynamically stable,
[2018-10-16 20:29] LABS: BASO % 0.2 % (0-2.0); EOS % 1.1 % (0-4.5); HEMATOCRIT 31.9 % (35.4-49); HEMOGLOBIN 10.6 GM/dl (11.7-16.9); LYMPH % 5.1 % (8-40); MCH 33.3 pg (25.7-33.7); MCHC 33.3 g/dl (32.0-35.9); MEAN CELL VOLUME 99.8 fl (80-96); MEAN PLT VOLUME 8.1 fl (7.5-11.1); NEUT % 89.6 % (42.8-82.8); PLATELET COUNT 133 K/MM3 (134-434); RDW 15.9 % (11.9-15.9); WHITE BLOOD COUNT 10.7 K/mm3 (4.0-10.8)
[2018-10-16] MEDS: ATORVASTATIN CA 80 MG TABLET (FP) PO SCH (21:42)
[2018-10-17] MEDS: CARVEDILOL 3.125 MG TABLET (FP) PO SCH ×3 (00:29→21:56)
[2018-10-17] MEDS: INSULIN SLIDING SCALE (NOVOLOG) 1 VIAL SQ SCH ×2 (06:29→16:00)
[2018-10-17] MEDS: FUROSEMIDE 40 MG TABLET (FP) PO SCH ×2 (06:30→14:00)
[2018-10-17 09:02] LABS: BASO % 0.3 % (0-2.0); EOS % 1.6 % (0-4.5); HEMATOCRIT 33.8 % (35.4-49); LYMPH % 7.5 % (8-40); MCH 32.9 pg (25.7-33.7); MCHC 32.6 g/dl (32.0-35.9); MEAN CELL VOLUME 100.7 fl (80-96); MEAN PLT VOLUME 8.6 fl (7.5-11.1); MONO % 4.7 % (3.8-10.2); NEUT % 85.9 % (42.8-82.8); PLATELET COUNT 123 K/MM3 (134-434); RBC 3.36 M/mm3 (4.00-5.60); RDW 16.4 % (11.9-15.9)
[2018-10-17] MEDS ORDERED: PT OWN MED DRAWER 7, Y5N ONE ×2 (09:04→09:40)
[2018-10-17 09:20] LABS: ALBUMIN 3.3 g/dl (3.4-5.0); BILIRUBIN,TOTAL 0.8 mg/dl (0.2-1); CALCIUM 8.7 mg/dl (8.5-10); CREATININE 1.5 mg/dl (0.55-1.3); POTASSIUM 4.8 mmol/L (3.5-5.1); TOT PROT 5.9 g/dl (6.4-8.2)
[2018-10-17] MEDS: FOLIC ACID 1 MG TABLET (FP) PO SCH (09:29)
[2018-10-17] MEDS: ALLOPURINOL 100 MG TABLET (FP) PO SCH (09:29)
[2018-10-17] MEDS: NIFEdipine E.R. 30 MG TABLET (FP) PO SCH ×2 (09:29→21:56)
[2018-10-17] MEDS ORDERED: METHOTREXATE 2.5 MG TABLET PO SCH (10:00)
--- NOTE | 2018-10-17 11:27 | CONSULT ---
Consult - text type - Consultation Consultation Note: ENT Consult Chart reviewed. I expect to be able to see the patient tomorrow, as I am not available to come in today. In the event of uncontrollable nose bleeding, which is not able to be stopped by the staff available on the floor, please bring the patient either to the emergency room, or transfer to a higher level of care where there is immediate availability of otolaryngology expertise. It would be reasonable to make this transfer now, in advance of any problems, due to the recurrent nature of his epistaxis.
--- NOTE | 2018-10-17 12:25 | DS ---
Physical Exam: SUBJECTIVE: Patient seen and examined OBJECTIVE: Vital Signs Period Temp Pulse Resp BP Sys/Downs Pulse Ox Last 24 Hr 97.8 F-99.2 F 58-105 18-22 132-146/46-76 85-96 PHYSICAL EXAM GENERAL: The patient is awake, alert, and fully oriented, in no acute distress. HEAD: Normal with no signs of trauma. EYES: PERRL, extraocular movements intact, sclera anicteric, conjunctiva clear. ENT: Ears normal, nares patent, oropharynx clear without exudates, moist mucous membranes. NECK: Trachea midline, full range of motion, supple. LUNGS: Breath sounds equal, clear to auscultation bilaterally, no wheezes, no crackles, no accessory muscle use. HEART: Regular rate and rhythm, S1, S2 without murmur, rub or gallop. ABDOMEN: Soft, nontender, nondistended, normoactive bowel sounds, no guarding, no rebound, no hepatosplenomegaly, no masses. EXTREMITIES: 2+ pulses, warm, well-perfused, no edema. NEUROLOGICAL: Cranial nerves II through XII grossly intact. Normal speech, gait not observed. PSYCH: Normal mood, normal affect. SKIN: Warm, dry, normal turgor, no rashes or lesions noted. LABS Laboratory Results - last 24 hr 10/16/18 10/16/18 10/16/18 16:50 20:20 22:40 WBC 10.7 Corrected WBC (auto) RBC 3.20 L Hgb 10.6 L Hct 31.9 L MCV 99.8 H MCH 33.3 MCHC 33.3 RDW 15.9 Plt Count 133 L MPV 8.1 Absolute Neuts (auto) 9.7 Neutrophils % 89.6 H Lymphocytes % 5.1 L D Monocytes % 4.0 Eosinophils % 1.1 Basophils % 0.2 Nucleated RBC % Platelet Estimate Platelet Comment Sodium Potassium Chloride Carbon Dioxide Anion Gap BUN Creatinine Est GFR (CKD-EPI)AfAm Est GFR (CKD-EPI)NonAf POC Glucometer 199 Random Glucose Calcium Total Bilirubin AST ALT Alkaline Phosphatase Troponin I 0.05 B-Natriuretic Peptide Total Protein Albumin 10/17/18 10/17/18 10/17/18 06:00 06:00 06:00 WBC 9.0 Corrected WBC (auto) RBC 3.36 L Hgb 11.0 L Hct 33.8 L MCV 100.7 H MCH 32.9 MCHC 32.6 RDW 16.4 H Plt Count 123 L MPV 8.6 Absolute Neuts (auto) 7.8 Neutrophils % 85.9 H Lymphocytes % 7.5 L D Monocytes % 4.7 Eosinophils % 1.6 Basophils % 0.3 Nucleated RBC % Platelet Estimate Platelet Comment Sodium 140 Potassium 4.8 Chloride 102 Carbon Dioxide 30 Anion Gap 8 BUN 41.0 H Creatinine 1.5 H Est GFR (CKD-EPI)AfAm 48.85 Est GFR (CKD-EPI)NonAf 42.14 POC Glucometer Random Glucose 170 H Calcium 8.7 Total Bilirubin 0.8 AST 16 ALT 22 Alkaline Phosphatase 42 L Troponin I B-Natriuretic Peptide 4517.4 H Total Protein 5.9 L Albumin 3.3 L 10/17/18 10/17/18 06:00 06:20 WBC Cancelled Corrected WBC (auto) Cancelled RBC Cancelled Hgb Cancelled Hct Cancelled MCV Cancelled MCH Cancelled MCHC Cancelled RDW Cancelled Plt Count Cancelled MPV Cancelled Absolute Neuts (auto) Cancelled Neutrophils % Cancelled Lymphocytes % Cancelled Monocytes % Cancelled Eosinophils % Cancelled Basophils % Cancelled Nucleated RBC % Cancelled Platelet Estimate Cancelled Platelet Comment Cancelled Sodium Potassium Chloride Carbon Dioxide Anion Gap BUN Creatinine Est GFR (CKD-EPI)AfAm Est GFR (CKD-EPI)NonAf POC Glucometer 176 Random Glucose Calcium Total Bilirubin AST ALT Alkaline Phosphatase Troponin I B-Natriuretic Peptide Total Protein Albumin HOSPITAL COURSE: Date of Admission:10/15/18 Date of Discharge: 10/17/18 Pre hospital course 83 year-old male with a PMH significant for HTN, HLD, CAD s/p CABG 2004 s/p stents 2018, bradycardia, second degree HB Mobitz Type I, Type II NIDDM, CKD, COPD, and gout. Presented to the ED for evaluation of SOB x 3 days. Upon evaluation he was found to have a normal troponin, BNP 6064, and CXR demonstrated pulmonary vascular congestion. EKG revealed atrial flutter 62 bpm. ED course (1) elevated BNP and CXR with fluid overload, lasix 40 IVP given (2) new onset atrial flutter- rate controlled in the 60's, Eliquis 2.5mg po BID initiated (3) leukocytosis, afebrile, UA negative Subsequent hospital course Acute on chronic diastolic heart failure --07/2018 Echo: low normal EF 50-55%, E/A reversal, nl RV, LA severely dilated , interatrial septal aneurysm, mild AR, mod MAC with mild functional MS (3 mmHg) , mild pulm HTN --elevated BNP and mild pulmonary congestion --treated with IV lasix, with improvement of symptoms; discharged on PO lasix home regimen Newly diagnosed aflutter --rate controlled on carvedilol --Eliquis was started but now on hold due to epistaxis --follow up with Dr. Anthony, patient's regular heel painter Epistaxis --patient has been on ASA and Plavix for ~18 months; has chronic nose bleeds but controlled --started on Eliquis during this admission for newly diagnosed aflutter after which had two large nose bleeds --discussed with Dr. Burch; stop ASA, Plavix, Eliquis today and OK to discharge home; if no further bleeding, restart Plavix in 2 days --will need ENT followup Coronary artery disease s/p CABG s/p stents --hold ASA and Plavix as of date of discharge --resume Plavix in 2 days if no bleeding episodes Hypertension --BP stable --cotinue carvedilol, nifedipine Hyperlipidemia --continue Lipitor Second degree heart block, Mobitz Type I --has tolerated carvedilol low dose for a long time --no pathological bradyarrhythmia on telemetry Chronic kidney disease --Cr 1.5 ~ baseline Anxiety --needs to f/u with Dr. Kaminski and put on medication regimen for anxiety r/o GORAN --scheduled for sleep study in October Minutes to complete discharge: 35 Discharge Summary Reason For Visit: ATRIAL FLUTTER Current Active Problems Acute on chronic diastolic (congestive) heart failure (Acute) Atrial flutter (Acute) CHF (congestive heart failure) (Acute) Condition: Improved - Instructions Diet, Activity, Other Instructions: You should stop taking aspirin, Plavix, and Eliquis as of today. If you have no further nose bleeds, or any bleeding events, you should resume taking your regular dose of Plavix on Wednesday, October 19. It is recommended you follow up with an ENT provider as soon as possible to be evaluated for possible cautery. You should follow up with your regular heel painter within 72 hours of your discharge. Return to the emergency department for any new or worsening symptoms. Referrals: Marcus Burrell MD [Staff Physician] - Disposition: HOME - Home Medications Comprehensive Discharge Medication List: Ambulatory Orders Albuterol Sulfate Inhaler - [Ventolin Hfa Inhaler -] 2 inh PO Q4H PRN 10/15/18 Allopurinol [Zyloprim -] 100 mg PO DAILY 10/15/18 Atorvastatin Ca [Lipitor] 80 mg PO DAILY 10/15/18 Carvedilol [Coreg -] 3.125 mg PO BID 10/15/18 Clopidogrel Bisulfate [Clopidogrel] 75 mg PO DAILY 10/15/18 Famotidine [Pepcid] 40 mg PO DAILY 10/15/18 Folic Acid 1 mg PO DAILY 10/15/18 Furosemide 40 mg PO DAILY 10/15/18 Methotrexate Sodium [Methotrexate] 2.5 mg PO Q7D 10/15/18 Nifedipine ER [Procardia Xl -] 30 mg PO BID 10/15/18 Sitagliptin Phosphate [Januvia] 50 mg PO DAILY 10/15/18 This patient is new to me today: Yes Date on this admission: 10/17/18 Emergency Visit: Yes ED Registration Date: 10/15/18 Care time: The patient presented to the Emergency Department on the above date and was hospitalized for further evaluation of their emergent condition. Critical Care patient: No - Discharge Referral Referred to [facility] No
--- NOTE | 2018-10-17 12:38 | PN ---
Progress Note (short form) - Note Progress Note: s: no cp sob palps dizzy o: Vital Signs Period Temp Pulse Resp BP Sys/Downs Pulse Ox Last 24 Hr 97.8 F-99.2 F 58-105 18-22 132-146/46-76 85-96 nad no jvd rrr s1s2 no mrg cta bl nl eff aao3 no le e/c/c abd nt nd pos bs no jaundice diaphoresis Current Medications Albuterol Sulfate (Ventolin 0.083% Nebulizer Soln -) 1 amp NEB Q6H PRN PRN Reason: SHORT OF BREATH/WHEEZING Allopurinol (Zyloprim -) 100 mg PO DAILY [facility] Last Admin: 10/17/18 09:29 Dose: 100 mg Alprazolam (Xanax -) 0.25 mg PO Q6H PRN PRN Reason: ANXIETY Last Admin: 10/16/18 20:06 Dose: 0.25 mg Atorvastatin Calcium (Lipitor -) 80 mg PO HS [facility] Last Admin: 10/16/18 21:42 Dose: 80 mg Carvedilol (Coreg -) 3.125 mg PO BID [facility] Last Admin: 10/17/18 09:29 Dose: 3.125 mg Folic Acid (Folic Acid -) 1 mg PO DAILY [facility] Last Admin: 10/17/18 09:29 Dose: 1 mg Furosemide (Lasix -) 40 mg PO BID@0600,1400 [facility] Last Admin: 10/17/18 06:30 Dose: 40 mg Insulin Aspart (Novolog Vial Sliding Scale -) 1 vial SQ BIDAC [facility]; Protocol Last Admin: 10/17/18 06:29 Dose: Not Given Methotrexate (Mexate -) 2.5 mg PO Mo@1000 [facility] Last Admin: 10/17/18 09:29 Dose: 2.5 mg Nifedipine (Procardia Xl -) 30 mg PO BID [facility] Last Admin: 10/17/18 09:29 Dose: 30 mg CBC, BMP 10/17/18 06:00 10/17/18 06:00 cxr: mild congestion Echo 07/2018 sinus with first deg AVB and wenckebach, tds, low normal EF 50-55%, E/A reversal, nl RV, LA severely dilated, interatrial septal aneurysm, mild AR, mod MAC with mild functional MS (3 mmHg), mild pulm HTN Event monitor: wenckebach with episodes of wenckebach with 2:1 block Cath 05/2017 [facility] [place] (staged intervention - part 2): LVEDP 15. prca 80-90% --> rotational atherectomy/PTCA/CASSIDY, mRCA 80-90% --> rotational atherectomy/PTCA/CASSIDY , dRCA 90-95% -->rotational atherectomy/PTCA/CASSIDY. RPDA mild dz, AV continuation 90-95% --> rotational atherectomy/CASSIDY. SVG to prox OM1 patent with patent stent as well. tele: sr ecg: aflutter, rate ok, no ischemic changes a/p: 83 m h/o CAD ( [facility], SVG-OM, SVG-PDA/drca ( known occluded) and subsequent PCI most recently 04/2017 CASSIDY x 1 to SVG-proxOM1, 05/2017 CASSIDY x 4 to RCA on DAPT), HTN, HLD, bradycardia, wenckebach presenting with shortness of breath. sob, acute on chronic diastolic chf: -no signs acs -mild pulm congestion, possibly from aflutter -after getting iv lasix feels better. seems euvolemic on exam. cont home dose po lasix 40 am with 20 qpm mwf. -would treat anxiety as well since this seems to contribute to sob sxs aflutter: -newly diagnosed this admit -rate controlled on coreg and now in sr -chadsvasc warrants ac. Started eliquis 2.5 bid (low dose due to age, cr) but had epistaxis. He has hx of this but reports this episode was worse than usual. Will hold asa, plavix, eliquis for now. He will resume plavix in 2 days. He was also instructed to f/u with ENT for possibly cautery and to see if he could be on AC again. CAD, s/p CABG with subsequent PCI of SVG to OM1, mult CASSIDY to [place] RCA (graft occluded): - no signs acute ischemia here - cont statin - cont plavix as above. - has tolerated carvedilol low dose long time per pt, with known Mobitz 1 physiology. no pathological bradyarrhythmia on tele here--cont same. HTN: - bp controlled - cont home meds for now CKD: -baseline creat 1.3-1.6 -stable here cardiac mohan stable for dc
[2018-10-17] MEDS: ATORVASTATIN CA 80 MG TABLET (FP) PO SCH (21:56)
[2018-10-17] MEDS: ALPRAZolam 0.25 MG TABLET PO PRN (22:02)
[2018-10-18] MEDS: FUROSEMIDE 40 MG TABLET (FP) PO SCH ×2 (06:40→14:40)
[2018-10-18] MEDS: INSULIN SLIDING SCALE (NOVOLOG) 1 VIAL SQ SCH ×2 (06:40→16:15)
[2018-10-18 09:45] VITALS: PULSE 59; TEMP 98.1
[2018-10-18] MEDS: FOLIC ACID 1 MG TABLET (FP) PO SCH (09:53)
[2018-10-18] MEDS: CARVEDILOL 3.125 MG TABLET (FP) PO SCH (09:53)
[2018-10-18] MEDS: NIFEdipine E.R. 30 MG TABLET (FP) PO SCH (09:53)
[2018-10-18] MEDS: ALLOPURINOL 100 MG TABLET (FP) PO SCH (09:53)
--- NOTE | 2018-10-18 11:02 | DS ---
Physical Exam: SUBJECTIVE: Patient seen and examined at bedside. OBJECTIVE: Vital Signs Period Temp Pulse Resp BP Sys/Downs Pulse Ox Last 24 Hr 98 F-98.8 F 53-130 17-20 123-147/38-58 91-97 PHYSICAL EXAM GENERAL: The patient is awake, alert, and fully oriented, in no acute distress. LUNGS: Breath sounds equal, clear to auscultation bilaterally, no wheezes, no crackles, no accessory muscle use. HEART: Regular rate and rhythm, S1, S2 without murmur, rub or gallop. ABDOMEN: Soft, nontender, nondistended, normoactive bowel sounds, no guarding, no rebound, no hepatosplenomegaly, no masses. EXTREMITIES: 2+ pulses, warm, well-perfused, no edema. NEUROLOGICAL: Cranial nerves II through XII grossly intact. Normal speech, steady gait LABS CBCD WBC 9.0 K/mm3 (4.0-10.8) 10/17/18 06:00 RBC 3.36 M/mm3 (4.00-5.60) L 10/17/18 06:00 Hgb 11.0 GM/dl (11.7-16.9) L 10/17/18 06:00 Hct 33.8 % (35.4-49) L 10/17/18 06:00 MCV 100.7 fl (80-96) H 10/17/18 06:00 MCHC 32.6 g/dl (32.0-35.9) 10/17/18 06:00 RDW 16.4 % (11.9-15.9) H 10/17/18 06:00 Plt Count 123 K/MM3 (134-434) L 10/17/18 06:00 MPV 8.6 fl (7.5-11.1) 10/17/18 06:00 CMP Sodium 140 mmol/L (136-145) 10/17/18 06:00 Potassium 4.8 mmol/L (3.5-5.1) 10/17/18 06:00 Chloride 102 mmol/L (98-107) 10/17/18 06:00 Carbon Dioxide 30 mmol/L (21-32) 10/17/18 06:00 Anion Gap 8 MMOL/L (8-16) 10/17/18 06:00 BUN 41.0 mg/dl (7-18) H 10/17/18 06:00 Creatinine 1.5 mg/dl (0.55-1.3) H 10/17/18 06:00 Calcium 8.7 mg/dl (8.5-10) 10/17/18 06:00 Total Bilirubin 0.8 mg/dl (0.2-1) 10/17/18 06:00 AST 16 U/L (15-37) 10/17/18 06:00 ALT 22 U/L (13-61) 10/17/18 06:00 Alkaline Phosphatase 42 U/L (45-117) L 10/17/18 06:00 Total Protein 5.9 g/dl (6.4-8.2) L 10/17/18 06:00 Albumin 3.3 g/dl (3.4-5.0) L 10/17/18 06:00 HOSPITAL COURSE: Date of Admission:10/15/18 Date of Discharge: 10/17/18 Pre hospital course 83 year-old male with a PMH significant for HTN, HLD, CAD s/p CABG 2004 s/p stents 2017, bradycardia, second degree HB Mobitz Type I, Type II NIDDM, CKD, COPD, and gout. Presented to the ED for evaluation of SOB x 3 days. Upon evaluation he was found to have a normal troponin, BNP 6064, and CXR demonstrated pulmonary vascular congestion. EKG revealed atrial flutter 62 bpm. ED course (1) elevated BNP and CXR with fluid overload, lasix 40 IVP given (2) new onset atrial flutter- rate controlled in the 60's, Eliquis 2.5mg po BID initiated (3) leukocytosis, afebrile, UA negative Subsequent hospital course Acute on chronic diastolic heart failure --07/2018 Echo: low normal EF 50-55%, E/A reversal, nl RV, LA severely dilated , interatrial septal aneurysm, mild AR, mod MAC with mild functional MS (3 mmHg) , mild pulm HTN --elevated BNP and mild pulmonary congestion --treated with IV lasix, with improvement of symptoms; discharged on PO lasix home regimen Newly diagnosed aflutter --rate controlled on carvedilol --Eliquis was started but now on hold due to epistaxis --follow up with Dr. Anthony, patient's regular food mixer assembler Epistaxis --patient has been on ASA and Plavix for ~18 months; has chronic nose bleeds but controlled --started on Eliquis during this admission for newly diagnosed aflutter after which had two large nose bleeds --discussed with Dr. Burch; stop ASA, Plavix, Eliquis and OK to discharge home; if no further bleeding, restart Plavix on 10/19 --will need ENT followup Coronary artery disease s/p CABG s/p stents --hold ASA and Plavix as of date of discharge --resume Plavix in 2 days if no bleeding episodes Hypertension --BP stable --cotinue carvedilol, nifedipine Hyperlipidemia --continue Lipitor Second degree heart block, Mobitz Type I --has tolerated carvedilol low dose for a long time --no pathological bradyarrhythmia on telemetry Chronic kidney disease --Cr 1.5 ~ baseline Anxiety --needs to f/u with Dr. Kaminski and put on medication regimen for anxiety r/o GORAN --scheduled for sleep study in October Minutes to complete discharge: 35 Discharge Summary Reason For Visit: ATRIAL FLUTTER Current Active Problems Acute on chronic diastolic (congestive) heart failure (Acute) Atrial flutter (Acute) CHF (congestive heart failure) (Acute) Condition: Improved - Instructions Diet, Activity, Other Instructions: Do NOT take aspirin, Plavix, or Eliquis today. If you have no further nose bleeds, or any bleeding events, resume taking Plavix on Wednesday, October 19, and call your food mixer assembler, Dr. Johnston to let her know. You should also make an appointment to see Dr. Johnston. It is recommended you follow up with an ENT provider as soon as possible to be evaluated for possible cautery. Contact information for Dr. Orlin Metcalf is enclosed. Return to the emergency department for any new or worsening symptoms. Referrals: Orlin Metcalf MD [Staff Physician] - Disposition: HOME - Home Medications Comprehensive Discharge Medication List: Ambulatory Orders Albuterol Sulfate Inhaler - [Ventolin HFA Inhaler -] 2 inh PO Q4H PRN 10/15/18 Allopurinol [Zyloprim -] 100 mg PO DAILY 10/15/18 Atorvastatin Ca [Lipitor] 80 mg PO DAILY 10/15/18 Carvedilol [Coreg -] 3.125 mg PO BID 10/15/18 Famotidine [Pepcid] 40 mg PO DAILY 10/15/18 Folic Acid 1 mg PO DAILY 10/15/18 Furosemide 40 mg PO DAILY 10/15/18 Methotrexate Sodium [Methotrexate] 2.5 mg PO Q7D 10/15/18 Nifedipine ER [Procardia XL -] 30 mg PO BID 10/15/18 Sitagliptin Phosphate [Januvia] 50 mg PO DAILY 10/15/18 Alprazolam [Xanax] 0.25 mg PO HS PRN #2 tablet MDD .25 10/17/18 This patient is new to me today: No Emergency Visit: Yes ED Registration Date: 10/15/18 Care time: The patient presented to the Emergency Department on the above date and was hospitalized for further evaluation of their emergent condition. Critical Care patient: No - Discharge Referral Referred to [facility] No
--- NOTE | 2018-10-18 15:13 | PN ---
Progress Note, Physician Chief Complaint: sitting in chair No CP or SOB - Current Medication List Current Medications: Active Medications Albuterol Sulfate (Ventolin 0.083% Nebulizer Soln -) 1 amp NEB Q6H PRN PRN Reason: SHORT OF BREATH/WHEEZING Last Admin: 10/18/18 03:48 Dose: 1 amp Allopurinol (Zyloprim -) 100 mg PO DAILY [facility] Last Admin: 10/18/18 09:53 Dose: 100 mg Alprazolam (Xanax -) 0.25 mg PO Q6H PRN PRN Reason: ANXIETY Last Admin: 10/17/18 22:02 Dose: 0.25 mg Atorvastatin Calcium (Lipitor -) 80 mg PO HS [facility] Last Admin: 10/17/18 21:56 Dose: 80 mg Carvedilol (Coreg -) 3.125 mg PO BID [facility] Last Admin: 10/18/18 09:53 Dose: 3.125 mg Folic Acid (Folic Acid -) 1 mg PO DAILY [facility] Last Admin: 10/18/18 09:53 Dose: 1 mg Furosemide (Lasix -) 40 mg PO BID@0600,1400 [facility] Last Admin: 10/18/18 14:40 Dose: 40 mg Insulin Aspart (Novolog Vial Sliding Scale -) 1 vial SQ BIDAC [facility]; Protocol Last Admin: 10/18/18 06:40 Dose: Not Given Methotrexate (Mexate -) 2.5 mg PO Mo@1000 [facility] Last Admin: 10/17/18 09:29 Dose: 2.5 mg Nifedipine (Procardia Xl -) 30 mg PO BID [facility] Last Admin: 10/18/18 09:53 Dose: 30 mg - Objective Vital Signs: Vital Signs Temperature 98.1 F 10/18/18 09:42 Pulse Rate 59 L 10/18/18 09:42 Respiratory Rate 17 10/18/18 09:42 Blood Pressure 137/53 L 10/18/18 09:42 O2 Sat by Pulse Oximetry (%) 92 L 10/18/18 09:42 Constitutional: Yes: No Distress, Calm Cardiovascular: Yes: Regular Rate and Rhythm Respiratory: Yes: CTA Bilaterally Gastrointestinal: Yes: Soft Edema: No Neurological: Yes: Alert, Oriented Labs: CBC, BMP 10/17/18 06:00 10/17/18 06:00 INR, PTT INR 1.27 (0.82-1.09) H 10/15/18 17:52 Assessment/Plan Echo 07/2018 sinus with first deg AVB and wenckebach, tds, low normal EF 50-55%, E/A reversal, nl RV, LA severely dilated, interatrial septal aneurysm, mild AR, mod MAC with mild functional MS (3 mmHg), mild pulm HTN Event monitor: wenckebach with episodes of wenckebach with 2:1 block Cath 05[place] [facility] [place] - part 2): LVEDP 15. prca 80-90% --> rotational atherectomy/PTCA/CASSIDY, mRCA 80-90% --> rotational atherectomy/PTCA/CASSIDY , dRCA 90-95% -->rotational atherectomy/PTCA/CASSIDY. RPDA mild dz, AV continuation 90-95% --> rotational atherectomy/CASSIDY. SVG to prox OM1 patent with patent stent as well. tele: sr ecg: aflutter, rate ok, no ischemic changes a/p: 83 [facility] h[facility] SVG-P[facility]/drca ( known occluded) and subsequent PCI most recently 04/2017 CASSIDY x 1 to SVG-proxOM1, 05/2017 CASSIDY x 4 to RCA on DAPT), HTN, HLD, bradycardia, wenckebach presenting with shortness of breath. sob, acute on chronic diastolic chf: -no signs acs -mild pulm congestion, possibly from aflutter -after getting iv lasix feels better. seems euvolemic on exam. cont home dose po lasix 40 am with 20 qpm mwf. -would treat anxiety as well since this seems to contribute to sob sxs aflutter: -newly diagnosed this admit -rate controlled on coreg and now in sr -chadsvasc warrants ac. Started eliquis 2.5 bid (low dose due to age, cr) but had epistaxis. He has hx of this but reports this episode was worse than usual. Will hold asa, plavix, eliquis for now. He will resume plavix in 2 days. He was also instructed to f/u with ENT for possibly cautery and to see if he could be on AC again. CAD, s/p CABG with subsequent PCI of SVG to OM1, mult CASSIDY to [place] RCA (graft occluded): - no signs acute ischemia here - cont statin - cont plavix as above. - has tolerated carvedilol low dose long time per pt, with known Mobitz 1 physiology. no pathological bradyarrhythmia on tele here--cont same. HTN: - bp controlled - cont home meds for now CKD: -baseline creat 1.3-1.6 -stable here cardiac mohan stable for dc w/ outpt f/u w/ Dr. Johnston
[2018-10-18 17:09] VITALS: BP 134/45
--- NOTE | 2018-10-20 07:15 | ECHO ---
Name: MAUREEN KRISHNAMURTHY Exam:Adult Echocardiogram Study Date: 10/18/2018 08:34 AM Age: 83 yrs Reason For Study: SOB CHF Height: 67 in Weight: 168 lb BSA: 1.9 m2 MMode/2D Measurements & Calculations IVSd: 1.1 cm Ao root diam: 2.6 cm LVIDd: 5.4 cm LA dimension: 5.3 cm LVIDs: 3.6 cm LVPWd: 0.97 cm EDV(Teich): 138.6 ml LVOT diam: 2.0 cm ESV(Teich): 52.7 ml Doppler Measurements & Calculations MV E max bernabe: 109.3 cm/sec MV A max bernabe: 141.4 cm/sec MV dec slope: 718.3 cm/sec2 MV E/A: 0.77 Ao V2 max: 210.0 cm/sec LV V1 max P.8 mmHg Ao max P.6 mmHg LV V1 mean P.2 mmHg Ao V2 mean: 166.5 cm/sec LV V1 max: 109.0 cm/sec Ao mean P.1 mmHg LV V1 mean: 68.1 cm/sec Ao V2 VTI: 36.7 cm LV V1 VTI: 23.9 cm MOON(I,D): 2.1 cm2 MOON(V,D): 1.6 cm2 MR max bernabe: 450.1 cm/sec SV(LVOT): 75.6 ml MR max P.6 mmHg TR max bernabe: 329.7 cm/sec PA V2 max: 86.1 cm/sec TR max P.9 mmHg PA max P.0 mmHg PI end-d bernabe: 179.5 cm/sec Procedure A two-dimensional transthoracic echocardiogram with color flow and Doppler was performed. Left Ventricle The left ventricular size, thickness and function are normal. The left ventricular ejection fraction is normal. Septal motion is consistent with post-operative state. Right Ventricle The right ventricle is not well visualized. Atria The left atrium is severely dilated. The right atrium is severely dilated. The atrial septum is aneur ysmal. Mitral Valve There is mild to moderate mitral valve thickening. There is moderate to severe mitral annular calcifi cation. Functional mitral valve stenosis secondary to MAC. There is moderate to severe mitral regurgitation. Tricuspid Valve There is mild tricuspid valve thickening. There is no tricuspid stenosis. There is severe tricuspid regurgitation. Right ventricular systolic pressure is elevated at 50-60mmHg. Aortic Valve There is moderate aortic valve thickening. There is moderate aortic sclerosis.;. No hemodynamically significant valvular aortic stenosis. Mild aortic regurgitation. Pulmonic Valve The pulmonic valve is not well visualized. There is no pulmonic valvular stenosis. Mild pulmonic valv ular regurgitation. Great Vessels The aortic root is normal size. Pericardium/Pleura There is no pericardial effusion. Interpretation Summary The left ventricular size, thickness and function are normal The left ventricular ejection fraction is normal. There is moderate aortic valve thickening. There is mild to moderate mitral valve thickening. The left atrium is severely dilated. The right atrium is severely dilated. Right ventricular systolic pressure is elevated at 50-60mmHg. There is moderate aortic sclerosis.; There is severe tricuspid regurgitation. The atrial septum is aneurysmal. Septal motion is consistent with post-operative state. There is moderate to severe mitral regurgitation. There is moderate to severe mitral annular calcification. Functional mitral valve stenosis secondary to MAC Mild aortic regurgitation. MD Mayco Correa 10/19/2018 09:50 AM
== END 2018-10-18 16:57 | disposition home or self-care (01) | DRG 291 ==
LOC: FER 16:23 → FM/S 18:55
PROVIDERS: ADMIT Internal Medicine; ATTEND Nurse Practitioner Acute Care
DX: I13.0 Hypertensive heart and chronic kidney disease with heart failure and stage 1 through stage 4 chronic kidney disease, or unspecified chronic kidney disease (principal); I50.33 Acute on chronic diastolic (congestive) heart failure; J96.01 Acute respiratory failure with hypoxia; I48.92 Unspecified atrial flutter; J44.9 Chronic obstructive pulmonary disease, unspecified; I25.10 Atherosclerotic heart disease of native coronary artery without angina pectoris; E78.5 Hyperlipidemia, unspecified; N18.9 Chronic kidney disease, unspecified; R04.0 Epistaxis; T45.515A Adverse effect of anticoagulants, initial encounter; E11.9 Type 2 diabetes mellitus without complications; M10.9 Gout, unspecified; Z98.61 Coronary angioplasty status; Z95.1 Presence of aortocoronary bypass graft; I44.1 Atrioventricular block, second degree; E87.70 Fluid overload, unspecified
CPT/HCPCS: 36415; 71045-TC-FY; 80048; 80053; 81003; 81015; 82803; 82962; 83735; 83880; 84443; 84484; 85025; 85027; 85610; 85730; 87086; 93005; 93306-TC; 94640; 94761; 99285-25; J8610

== ENCOUNTER 2020-04-17 12:13 | Inpatient (IN) | payer OTHER ==
[2020-04-17 12:27] VITALS: BMI 25.8
[2020-04-17 13:13] LABS: BASO % 0.7 % (0-2.0); EOS % 0.1 % (0-4.5); HEMATOCRIT 23.7 % (35.4-49); HEMOGLOBIN 7.4 GM/dL (11.7-16.9); LYMPH % 6.5 % (8-40); MCH 30.5 pg (25.7-33.7); MCHC 31.1 g/dl (32.0-35.9); MEAN PLT VOLUME 10.8 fl (7.5-11.1); MONO % 5.7 % (3.8-10.2); PLATELET COUNT 74 K/MM3 (134-434); RBC 2.42 M/mm3 (4.00-5.60); RDW 17.6 % (11.9-15.9); WHITE BLOOD COUNT 6.1 K/mm3 (4.0-10.0)
[2020-04-17 13:15] LABS: INR 1.16 (0.83-1.09)
[2020-04-17] MEDS ORDERED: CALCIUM GLUCONATE 10% - 1,000 MG/10 ML VIAL IVPUSH ONE (13:31)
[2020-04-17 13:32] LABS: ALBUMIN 3.4 g/dl (3.4-5.0); CALCIUM 8.3 mg/dL (8.5-10.1)
[2020-04-17] MEDS ORDERED: CALCIUM GLUC IN NACL, ISO-OSM 1 GM/50 ML BAG IVPB ONE (13:33)
[2020-04-17 13:35] LABS: CREATININE 2.8 mg/dL (0.55-1.3)
[2020-04-17 13:37] LABS: BILIRUBIN,TOTAL 1.1 mg/dL (0.2-1); TOT PROT 6.2 g/dl (6.4-8.2)
[2020-04-17 13:47] LABS: BLOOD UREA NITROGEN 164.4 mg/dL (7-18); POTASSIUM 6.1 mmol/L (3.5-5.1)
[2020-04-17] MEDS ORDERED: INSULIN REGULAR HUMAN 100 UNITS/ML *VIAL IVPUSH ONE (13:49)
[2020-04-17] MEDS ORDERED: DEXTROSE 50%-WATER - 25 GM/50 ML VIAL IVPUSH ONE ×2 (13:49→14:01)
[2020-04-17] MEDS ORDERED: FUROSEMIDE 40 MG/4 ML INJECTABLE VIAL IVPUSH ONE (13:51)
[2020-04-17] MEDS ORDERED: DEXTROSE 50%-WATER 25 GM/50 ML DISP.SYRIN ONE (13:57)
[2020-04-17] MEDS ORDERED: FUROSEMIDE 40 MG/4 ML INJECTABLE VIAL ONE ×2 (13:57→21:30)
[2020-04-17] MEDS ORDERED: DEXTROSE 50%-WATER - 25 GM/50 ML VIAL ONE (14:00)
[2020-04-17 14:14] LABS: N-TERMINAL BNP 16608.9 pg/ml (5-450)
[2020-04-17] MEDS ORDERED: ACETAMINOPHEN 325 MG TABLET (FP) PO ONE (14:20)
[2020-04-17] MEDS ORDERED: LORazepam 1 MG TABLET PO ONE (14:37)
[2020-04-17] MEDS ORDERED: LORazepam 1 MG TABLET ONE (14:40)
[2020-04-17] MEDS ORDERED: ACETAMINOPHEN 325 MG TABLET (FP) ONE (14:40)
[2020-04-17 14:51] LABS: ANISOCYTOSIS 1+; MACROCYTOSIS 1+; PLATELET ESTIMATE DECREASED
[2020-04-17 15:16] LABS: URINE APPEARANCE CLEAR; URINE BILIRUBIN NEGATIVE (NEGATIVE); URINE COLOR YELLOW; URINE GLUCOSE (UA) NEGATIVE (NEGATIVE); URINE KETONE NEGATIVE (NEGATIVE); URINE LEUK ESTERASE NEGATIVE (NEGATIVE); URINE NITRITE NEGATIVE (NEGATIVE); URINE PROTEIN TRACE (NEGATIVE)
[2020-04-17] MEDS ORDERED: SODIUM ZIRCONIUM CYCLOSILICATE (LOKELMA) 5 GM PACKET PO ONE (15:16)
[2020-04-17] MEDS ORDERED: SODIUM ZIRCONIUM CYCLOSILICATE (LOKELMA) 5 GM PACKET ONE (16:48)
[2020-04-17] MEDS ORDERED: CEFTRIAXONE 1,000 MG in DEXTROSE 5%-WATER - 50 ML IVPB ONE (18:40)
[2020-04-17] MEDS ORDERED: AZITHROMYCIN IVPB 500 MG in DEXTROSE 5%-WATER - 250 ML IVPB ONE (18:40)
[2020-04-17] MEDS ORDERED: DEXAMETHASONE SOD PHOSPHATE 10 MG/1 ML VIAL IVPUSH ONE (19:26)
[2020-04-17 19:37] LABS: ALLENS TEST POSITIVE; ARTERIAL BLD GAS O2 SATURATION 99.7 mmHg (95-98); ARTERIAL BLOOD GAS BASE EXCESS -0.5 mmol/L (-2-2); ARTERIAL BLOOD GAS PO2 366.7 mmHg (80-100); ARTERIAL BLOOD GAS pH 7.218 (7.350-7.450)
[2020-04-17] MEDS ORDERED: DEXAMETHASONE SOD PHOSPHATE 10 MG/1 ML VIAL ONE (19:43)
[2020-04-17] MEDS ORDERED: CEFTRIAXONE 1 GM/50 ML BAG ONE (19:43)
[2020-04-17] MEDS ORDERED: AZITHROMYCIN IVPB 500 MG/250 ML BAG IVPB ONE (19:43)
[2020-04-17 19:53] LABS: POTASSIUM 5.4 mmol/L (3.5-5.1)
[2020-04-17 19:54] LABS: CALCIUM 8.6 mg/dL (8.5-10.1)
[2020-04-17 19:58] LABS: CREATININE 2.6 mg/dL (0.55-1.3)
[2020-04-17 20:28] LABS: LDH 274 U/L (87-246)
[2020-04-17 20:38] LABS: BLOOD UREA NITROGEN 167.3 mg/dL (7-18)
[2020-04-17] MEDS: FUROSEMIDE INJECTION 100 MG in DEXTROSE 5%-WATER - 40 ML IVPB SCH (22:02)
[2020-04-17] MEDS: INSULIN SLIDING SCALE (NOVOLOG) 1 VIAL SQ SCH (23:02)
[2020-04-18] MEDS: INSULIN SLIDING SCALE (NOVOLOG) 1 VIAL SQ SCH ×3 (06:36→22:41)
[2020-04-18 07:20] LABS: HEMATOCRIT 23.2 % (35.4-49); HEMOGLOBIN 7.1 GM/dL (11.7-16.9); MCH 30.3 pg (25.7-33.7); MCHC 30.7 g/dl (32.0-35.9); MEAN CELL VOLUME 98.6 fl (80-96); MEAN PLT VOLUME 10.9 fl (7.5-11.1); PLATELET COUNT 75 K/MM3 (134-434); RBC 2.35 M/mm3 (4.00-5.60); RDW 17.9 % (11.9-15.9)
[2020-04-18 07:49] LABS: POTASSIUM 5.5 mmol/L (3.5-5.1)
[2020-04-18 07:56] LABS: CALCIUM 8.7 mg/dL (8.5-10.1)
[2020-04-18 07:57] LABS: ALBUMIN 3.2 g/dl (3.4-5.0); MAGNESIUM 3.6 mg/dL (1.8-2.4)
[2020-04-18 08:00] LABS: CREATININE 2.6 mg/dL (0.55-1.3); PHOSPHOROUS 6.1 mg/dL (2.5-4.9)
[2020-04-18 08:01] LABS: BILIRUBIN,TOTAL 0.8 mg/dL (0.2-1)
[2020-04-18 08:24] LABS: BLOOD UREA NITROGEN 164.2 mg/dL (7-18)
[2020-04-18] MEDS: TAMSULOSIN HCL 0.4 MG CAP PO SCH (09:06)
[2020-04-18] MEDS: MUPIROCIN 2% TOPICAL OINTMENT FOR DECOLONIZATION NS SCH (16:01)
[2020-04-18] MEDS: SODIUM ZIRCONIUM CYCLOSILICATE (LOKELMA) 5 GM PACKET PO SCH (16:01)
[2020-04-18] MEDS ORDERED: traMADol HCL 50 MG TABLET PO ONE (16:47)
[2020-04-18] MEDS ORDERED: MELATONIN 5 MG TABLETS PO ONE (18:00)
[2020-04-18 18:53] LABS: CALCIUM 8.5 mg/dL (8.5-10.1)
[2020-04-18 18:57] LABS: CREATININE 2.5 mg/dL (0.55-1.3)
[2020-04-18 19:02] LABS: HEMATOCRIT 23.3 % (35.4-49); HEMOGLOBIN 7.4 GM/dL (11.7-16.9); MCH 30.8 pg (25.7-33.7); MCHC 31.8 g/dl (32.0-35.9); MEAN CELL VOLUME 96.7 fl (80-96); MEAN PLT VOLUME 9.9 fl (7.5-11.1); PLATELET COUNT 75 K/MM3 (134-434); RDW 17.2 % (11.9-15.9); WHITE BLOOD COUNT 5.4 K/mm3 (4.0-10.0)
[2020-04-18 19:05] LABS: BLOOD UREA NITROGEN 171.9 mg/dL (7-18)
[2020-04-19] MEDS ORDERED: traZODone HCL 50 MG TABLET (FP) PO ONE ×2 (00:30→20:03)
[2020-04-19] MEDS ORDERED: ACETAMINOPHEN 500 MG TABLET (FP) PO ONE (00:30)
[2020-04-19] MEDS: CHLORHEXIDINE GLUCONATE 4% CLEANSER FOR DECOLONIZATION TP SCH ×2 (02:52→21:41)
[2020-04-19] MEDS: MUPIROCIN 2% TOPICAL OINTMENT FOR DECOLONIZATION NS SCH ×3 (02:52→21:41)
[2020-04-19 07:04] LABS: HEMATOCRIT 22.9 % (35.4-49); HEMOGLOBIN 7.3 GM/dL (11.7-16.9); MCH 30.9 pg (25.7-33.7); MCHC 31.9 g/dl (32.0-35.9); MEAN CELL VOLUME 96.6 fl (80-96); MEAN PLT VOLUME 10.2 fl (7.5-11.1); PLATELET COUNT 76 K/MM3 (134-434); RBC 2.37 M/mm3 (4.00-5.60); RDW 17.5 % (11.9-15.9); WHITE BLOOD COUNT 5.6 K/mm3 (4.0-10.0)
[2020-04-19 07:33] LABS: POTASSIUM 4.7 mmol/L (3.5-5.1)
[2020-04-19 07:35] LABS: CALCIUM 8.1 mg/dL (8.5-10.1); MAGNESIUM 3.3 mg/dL (1.8-2.4)
[2020-04-19 07:38] LABS: CREATININE 2.6 mg/dL (0.55-1.3); PHOSPHOROUS 5.2 mg/dL (2.5-4.9)
[2020-04-19 07:49] LABS: BLOOD UREA NITROGEN 163.3 mg/dL (7-18)
[2020-04-19] MEDS: TAMSULOSIN HCL 0.4 MG CAP PO SCH (09:09)
[2020-04-19] MEDS: SODIUM ZIRCONIUM CYCLOSILICATE (LOKELMA) 5 GM PACKET PO SCH (09:10)
[2020-04-19] MEDS: MILRINONE 20MG/100ML IVPB - 20,000 MCG/100 ML ML IVPB SCH (12:00)
[2020-04-19] MEDS: INSULIN SLIDING SCALE (NOVOLOG) 1 VIAL SQ SCH ×3 (12:23→21:11)
[2020-04-20] MEDS: INSULIN SLIDING SCALE (NOVOLOG) 1 VIAL SQ SCH ×5 (06:10→22:14)
[2020-04-20 06:52] LABS: HEMATOCRIT 21.9 % (35.4-49); MCH 30.8 pg (25.7-33.7); MEAN CELL VOLUME 96.2 fl (80-96); PLATELET COUNT 78 K/MM3 (134-434); RBC 2.28 M/mm3 (4.00-5.60); RDW 17.2 % (11.9-15.9); WHITE BLOOD COUNT 6.2 K/mm3 (4.0-10.0)
[2020-04-20] MEDS: FUROSEMIDE INJECTION 100 MG in DEXTROSE 5%-WATER - 40 ML IVPB SCH (07:00)
[2020-04-20 07:07] LABS: POTASSIUM 4.2 mmol/L (3.5-5.1)
[2020-04-20 07:09] LABS: CALCIUM 8.3 mg/dL (8.5-10.1)
[2020-04-20 07:10] LABS: ALBUMIN 3.1 g/dl (3.4-5.0)
[2020-04-20 07:13] LABS: CREATININE 2.3 mg/dL (0.55-1.3); PHOSPHOROUS 3.7 mg/dL (2.5-4.9)
[2020-04-20 07:14] LABS: BILIRUBIN,TOTAL 1.2 mg/dL (0.2-1)
[2020-04-20 07:15] LABS: TOT PROT 5.5 g/dl (6.4-8.2)
[2020-04-20 07:34] LABS: BLOOD UREA NITROGEN 162.6 mg/dL (7-18)
[2020-04-20] MEDS: MILRINONE 20MG/100ML IVPB - 20,000 MCG/100 ML ML IVPB SCH (07:48)
[2020-04-20] MEDS: SODIUM ZIRCONIUM CYCLOSILICATE (LOKELMA) 5 GM PACKET PO SCH (09:17)
[2020-04-20] MEDS: TAMSULOSIN HCL 0.4 MG CAP PO SCH (09:17)
[2020-04-20] MEDS: ALPRAZolam 0.25 MG TABLET PO PRN ×2 (09:25→17:39)
[2020-04-20] MEDS: MUPIROCIN 2% TOPICAL OINTMENT FOR DECOLONIZATION NS SCH ×2 (11:00→22:07)
[2020-04-20] MEDS: MORPHINE SULFATE 2 MG/ML VIAL IVPUSH PRN ×3 (12:32→19:44)
[2020-04-20] MEDS ORDERED: FUROSEMIDE 40 MG/4 ML INJECTABLE VIAL ONE (19:17)
[2020-04-20] MEDS: CHLORHEXIDINE GLUCONATE 4% CLEANSER FOR DECOLONIZATION TP SCH (22:07)
[2020-04-21] MEDS: MORPHINE SULFATE 2 MG/ML VIAL IVPUSH PRN (00:45)
[2020-04-21] MEDS ORDERED: MORPHINE SULFATE 2 MG/ML VIAL ONE (01:10)
[2020-04-21] MEDS: LORazepam 2 MG/ML SDV VIAL IVPUSH PRN (01:21)
[2020-04-21] MEDS: FUROSEMIDE INJECTION 100 MG in DEXTROSE 5%-WATER - 40 ML IVPB SCH (06:25)
[2020-04-21] MEDS: INSULIN SLIDING SCALE (NOVOLOG) 1 VIAL SQ SCH ×4 (06:25→22:58)
[2020-04-21] MEDS: MILRINONE 20MG/100ML IVPB - 20,000 MCG/100 ML ML IVPB SCH (06:26)
[2020-04-21 06:37] LABS: HEMATOCRIT 22.1 % (35.4-49); HEMOGLOBIN 7.2 GM/dL (11.7-16.9); MCH 31.5 pg (25.7-33.7); MCHC 32.5 g/dl (32.0-35.9); MEAN CELL VOLUME 96.9 fl (80-96); MEAN PLT VOLUME 9.7 fl (7.5-11.1); PLATELET COUNT 78 K/MM3 (134-434); RBC 2.27 M/mm3 (4.00-5.60); RDW 17.8 % (11.9-15.9); WHITE BLOOD COUNT 5.2 K/mm3 (4.0-10.0)
[2020-04-21 07:00] LABS: POTASSIUM 4.6 mmol/L (3.5-5.1)
[2020-04-21 07:05] LABS: CALCIUM 8.6 mg/dL (8.5-10.1)
[2020-04-21 07:09] LABS: BILIRUBIN,TOTAL 1.2 mg/dL (0.2-1); CREATININE 2.5 mg/dL (0.55-1.3); PHOSPHOROUS 4.3 mg/dL (2.5-4.9); TOT PROT 5.5 g/dl (6.4-8.2)
[2020-04-21 08:25] LABS: BLOOD UREA NITROGEN 152.8 mg/dL (7-18)
[2020-04-21] MEDS: TAMSULOSIN HCL 0.4 MG CAP PO SCH (09:16)
[2020-04-21] MEDS: SODIUM ZIRCONIUM CYCLOSILICATE (LOKELMA) 5 GM PACKET PO SCH (09:16)
[2020-04-21] MEDS: MUPIROCIN 2% TOPICAL OINTMENT FOR DECOLONIZATION NS SCH ×2 (09:16→22:59)
[2020-04-21] MEDS: morphine SULFATE 4 MG/ML VIAL IVPUSH PRN (14:18)
[2020-04-21] MEDS: CHLORHEXIDINE GLUCONATE 4% CLEANSER FOR DECOLONIZATION TP SCH (22:59)
[2020-04-22] MEDS: morphine SULFATE 4 MG/ML VIAL IVPUSH PRN ×3 (01:13→12:55)
[2020-04-22] MEDS: INSULIN SLIDING SCALE (NOVOLOG) 1 VIAL SQ SCH ×3 (06:41→23:42)
[2020-04-22 06:47] LABS: HEMATOCRIT 22.5 % (35.4-49); HEMOGLOBIN 7.3 GM/dL (11.7-16.9); MCH 31.8 pg (25.7-33.7); MCHC 32.5 g/dl (32.0-35.9); MEAN CELL VOLUME 97.8 fl (80-96); MEAN PLT VOLUME 9.5 fl (7.5-11.1); PLATELET COUNT 90 K/MM3 (134-434); RDW 17.7 % (11.9-15.9); WHITE BLOOD COUNT 6.5 K/mm3 (4.0-10.0)
[2020-04-22 06:56] LABS: POTASSIUM 4.7 mmol/L (3.5-5.1)
[2020-04-22 06:59] LABS: CALCIUM 8.8 mg/dL (8.5-10.1)
[2020-04-22 07:00] LABS: MAGNESIUM 3.2 mg/dL (1.8-2.4)
[2020-04-22 07:01] LABS: ALBUMIN 3.2 g/dl (3.4-5.0)
[2020-04-22 07:02] LABS: BILIRUBIN,DIRECT 0.5 mg/dL (0.0-0.2)
[2020-04-22 07:04] LABS: PHOSPHOROUS 4.6 mg/dL (2.5-4.9); TOT PROT 5.9 g/dl (6.4-8.2)
[2020-04-22 07:13] LABS: BLOOD UREA NITROGEN 156.8 mg/dL (7-18)
[2020-04-22] MEDS: MUPIROCIN 2% TOPICAL OINTMENT FOR DECOLONIZATION NS SCH (09:19)
[2020-04-22] MEDS: TAMSULOSIN HCL 0.4 MG CAP PO SCH (09:19)
[2020-04-22] MEDS: SODIUM ZIRCONIUM CYCLOSILICATE (LOKELMA) 5 GM PACKET PO SCH (12:05)
[2020-04-22] MEDS: LORazepam 2 MG/ML SDV VIAL IVPUSH PRN ×2 (14:50→20:17)
[2020-04-22] MEDS: PANTOPRAZOLE SODIUM 40 MG VIAL IVPUSH SCH (15:35)
[2020-04-22] MEDS ORDERED: IRON SUCROSE INJECTION 100 MG in SODIUM CHLORIDE 95 ML IVPB ONE (16:00)
[2020-04-22] MEDS ORDERED: PT OWN MED DRAWER 7, Y5N ONE (17:22)
[2020-04-22 22:39] LABS: ALLENS TEST POSITIVE; ARTERIAL BLOOD GAS BASE EXCESS -0.9 mmol/L (-2-2); ARTERIAL BLOOD GAS PO2 51.2 mmHg (80-100)
[2020-04-22 22:42] LABS: ARTERIAL BLOOD GAS pH 7.189 (7.350-7.450)
[2020-04-22] MEDS: FUROSEMIDE INJECTION 100 MG in DEXTROSE 5%-WATER - 40 ML IVPB SCH (23:43)
[2020-04-22 23:45] LABS: ARTERIAL BLD GAS O2 SATURATION 98.9 mmHg (95-98); ARTERIAL BLOOD GAS BASE EXCESS 1.4 mmol/L (-2-2); ARTERIAL BLOOD GAS PO2 196.6 mmHg (80-100)
[2020-04-22 23:49] LABS: ALLENS TEST POSITIVE
[2020-04-22 23:55] LABS: VENT RATE 18
[2020-04-22 23:58] LABS: ARTERIAL BLOOD GAS pH 7.131 (7.350-7.450)
[2020-04-23] MEDS: MUPIROCIN 2% TOPICAL OINTMENT FOR DECOLONIZATION NS SCH (00:42)
[2020-04-23] MEDS: CHLORHEXIDINE GLUCONATE 4% CLEANSER FOR DECOLONIZATION TP SCH (00:42)
[2020-04-23] MEDS ORDERED: FUROSEMIDE INJECTION 100 MG in DEXTROSE 5%-WATER - 40 ML IVPB SCH (01:13)
[2020-04-23] MEDS: INSULIN SLIDING SCALE (NOVOLOG) 1 VIAL SQ SCH ×4 (07:04→22:18)
[2020-04-23 07:23] LABS: BASO % 0.3 % (0-2.0); EOS % 0.4 % (0-4.5); HEMATOCRIT 21.3 % (35.4-49); LYMPH % 5.3 % (8-40); MCH 31.9 pg (25.7-33.7); MCHC 32.1 g/dl (32.0-35.9); MEAN CELL VOLUME 99.2 fl (80-96); MEAN PLT VOLUME 9.7 fl (7.5-11.1); MONO % 3.8 % (3.8-10.2); NEUT % 90.2 % (42.8-82.8); PLATELET COUNT 90 K/MM3 (134-434); RBC 2.14 M/mm3 (4.00-5.60); RDW 18.8 % (11.9-15.9); WHITE BLOOD COUNT 6.4 K/mm3 (4.0-10.0)
[2020-04-23 07:29] LABS: HEMOGLOBIN 6.8 GM/dL (11.7-16.9)
[2020-04-23 07:49] LABS: POTASSIUM 5.5 mmol/L (3.5-5.1)
[2020-04-23 07:54] LABS: ALBUMIN 3.1 g/dl (3.4-5.0); PHOSPHOROUS 6.5 mg/dL (2.5-4.9)
[2020-04-23 07:57] LABS: CALCIUM 9.1 mg/dL (8.5-10.1); CREATININE 3.5 mg/dL (0.55-1.3); MAGNESIUM 3.2 mg/dL (1.8-2.4)
[2020-04-23 07:59] LABS: TOT PROT 5.7 g/dl (6.4-8.2)
[2020-04-23 08:35] LABS: BLOOD UREA NITROGEN 170.7 mg/dL (7-18)
[2020-04-23] MEDS ORDERED: MUPIROCIN 2% TOPICAL OINTMENT FOR DECOLONIZATION NS SCH (10:00)
[2020-04-23] MEDS ORDERED: GLYCOPYRROLATE 0.2 MG/1 ML VIAL IM ONE ×2 (10:41→11:00)
[2020-04-23] MEDS: SODIUM ZIRCONIUM CYCLOSILICATE (LOKELMA) 5 GM PACKET PO SCH (11:27)
[2020-04-23] MEDS: TAMSULOSIN HCL 0.4 MG CAP PO SCH (11:27)
[2020-04-23] MEDS: PANTOPRAZOLE SODIUM 40 MG VIAL IVPUSH SCH (11:29)
[2020-04-23 11:41] LABS: ANISOCYTOSIS 3+; MACROCYTOSIS 1+; OVALOCYTE 1+; PLATELET ESTIMATE DECREASED
[2020-04-23] MEDS: morphine SULFATE 4 MG/ML VIAL IVPUSH PRN ×2 (15:27→20:39)
[2020-04-23] MEDS ORDERED: PT OWN MED DRAWER 7, Y5N ONE (19:26)
[2020-04-23] MEDS ORDERED: CHLORHEXIDINE GLUCONATE 4% CLEANSER FOR DECOLONIZATION TP SCH (22:00)
[2020-04-24] MEDS: morphine SULFATE 4 MG/ML VIAL IVPUSH PRN ×2 (04:15→07:48)
[2020-04-24] MEDS: TAMSULOSIN HCL 0.4 MG CAP PO SCH (07:47)
[2020-04-24] MEDS: INSULIN SLIDING SCALE (NOVOLOG) 1 VIAL SQ SCH ×2 (07:47→11:35)
[2020-04-24] MEDS: SODIUM ZIRCONIUM CYCLOSILICATE (LOKELMA) 5 GM PACKET PO SCH (09:18)
[2020-04-24] MEDS: PANTOPRAZOLE SODIUM 40 MG VIAL IVPUSH SCH (09:20)
[2020-04-24] MEDS ORDERED: FUROSEMIDE 40 MG/4 ML INJECTABLE VIAL IVPUSH ONE (10:03)
[2020-04-24] MEDS: LORazepam 2 MG/ML SDV VIAL IVPUSH PRN ×2 (12:11→18:52)
[2020-04-24 12:54] LABS: CHLORIDE 103 mmol/L (98-107); SODIUM 140 mmol/L (136-145)
[2020-04-24 12:56] LABS: CO2 31 mmol/L (21-32); GLUCOSE,RANDOM 169 mg/dL (74-106)
[2020-04-24 12:59] LABS: CREATININE 5.1 mg/dL (0.55-1.3)
[2020-04-24 13:00] LABS: ANION GAP 7 MMOL/L (8-16); CALCIUM 8.7 mg/dL (8.5-10.1)
[2020-04-24 13:25] LABS: BLOOD UREA NITROGEN > 150.0 mg/dL (7-18); POTASSIUM 6.5 mmol/L (3.5-5.1)
[2020-04-24] MEDS ORDERED: SODIUM POLYSTYRENE SULFONATE 15 GM/60 ML BOTTLE RC ONE (13:35)
[2020-04-24 13:59] LABS: HEMATOCRIT 26.4 % (35.4-49); HEMOGLOBIN 8.3 GM/dL (11.7-16.9); MCH 31.4 pg (25.7-33.7); MCHC 31.5 g/dl (32.0-35.9); MEAN CELL VOLUME 99.7 fl (80-96); MEAN PLT VOLUME 9.9 fl (7.5-11.1); PLATELET COUNT 113 K/MM3 (134-434); RBC 2.65 M/mm3 (4.00-5.60); RDW 19.5 % (11.9-15.9); WHITE BLOOD COUNT 7.5 K/mm3 (4.0-10.0)
[2020-04-24] MEDS ORDERED: MORPHINE SULFATE/0.9% NACL/PF 100 MG/100 ML BAG IVPB SCH (14:30)
[2020-04-24 20:54] VITALS: BP 99/55; PULSE 98; TEMP 98.1
== END 2020-04-24 21:07 | disposition expired | DRG 291 ==
LOC: JER 12:13 → JERBED 14:54 → J4W 04-18 → JICU 04-18 01:17 → J4W 04-22 18:23
PROVIDERS: ADMIT Internal Medicine Pulmonary Disease; ATTEND Nurse Practitioner Acute Care
PROC: 30233N1 Transfusion of Nonautologous Red Blood Cells into Peripheral Vein, Percutaneous Approach (ICD-10-PCS; principal; 2020-04-18)
DX: I13.0 Hypertensive heart and chronic kidney disease with heart failure and stage 1 through stage 4 chronic kidney disease, or unspecified chronic kidney disease (principal); J96.01 Acute respiratory failure with hypoxia; I50.43 Acute on chronic combined systolic (congestive) and diastolic (congestive) heart failure; N17.9 Acute kidney failure, unspecified; I48.92 Unspecified atrial flutter; I25.10 Atherosclerotic heart disease of native coronary artery without angina pectoris; D69.6 Thrombocytopenia, unspecified; I27.20 Pulmonary hypertension, unspecified; D63.1 Anemia in chronic kidney disease; E87.5 Hyperkalemia; Z51.5 Encounter for palliative care; Z95.5 Presence of coronary angioplasty implant and graft; N18.30 Chronic kidney disease, stage 3 unspecified; E78.5 Hyperlipidemia, unspecified; Z95.1 Presence of aortocoronary bypass graft; E87.70 Fluid overload, unspecified
CPT/HCPCS: 36415; 36430; 36600; 71045-TC-FY; 71250-TC; 76775-TC; 80048; 80053; 80061; 80076; 81003; 82272; 82550; 82565; 82728; 82803; 82962; 83010; 83036; 83540; 83550; 83615; 83721; 83735; 83880; 84100; 84156; 84300; 84439; 84443; 84466; 84484; 85025; 85027; 85045; 85379; 85384; 85610; 85730; 86140; 86850; 86900; 86901; 86922; 87040; 87086; 87205; 87899; 93005; 93010; 93306-TC; 94660; 99285-25; C9803; J1100; J1756; P9058; U0003